=== PATIENT | female | born 1995 | race Caucasian/White ===

== ENCOUNTER → 2021-08-02 10:10 | Outpatient (CLI) | payer OTHER, SELFPAY ==
[2021-08-02 10:29] LABS: Absolute Lymphocyte Count 2.19 X10^3/uL (0.83-4.51); Absolute Neutrophil Count 5.5 X10^3/uL (2.0-7.7); Basophil# 0.05 X10^3/uL; Basophil% 0.6 % (0-1); Eosinophil# 0.61 X10^3/uL; Eosinophils% 6.8 % (0-5); Hematocrit 40.7 % (37-47); Hemoglobin 13.9 g/dL (12.0-15.0); Lymphocyte # 2.19 X10^3/ul (0.83-4.51); Lymphocyte % 24.3 % (19-41); Mean Corp Hgb Conc 34.2 g/dL (32-36); Mean Corpuscular Hgb 29.3 pg (27.0-32.0); Mean Corpuscular Volume 85.9 fL (81-99); Mean Platelet Vol. 9.1 fl (6.2-12.0); Monocyte# 0.61 X10^3/uL; Monocyte% 6.8 % (0-10); NRBC Flagged by Analyzer 0 % (0-5); Neutrophil # 5.53 X10^3/uL (2.7-7.7); Neutrophil % 61.3 % (47-70); Platelet Count 361 K/mm3 (150-450); RBC Distribution Width CV 12.2 % (11.6-14.6); RBC Distribution Width SD 38.1 fl (35.1-43.9); Red Blood Count 4.74 M/mm3 (4.2-5.4)
[2021-08-02 10:48] LABS: Amphetamine Urine VISTA NEGATIVE (<1000 ng/mL); Barbiturate Urine VISTA NEGATIVE (< 200 ng/mL); Benzodiazepine Urine VISTA NEGATIVE (< 200 ng/mL); Cocaine Urine VISTA NEGATIVE (< 300 ng/mL); Ecstacy Urine VISTA NEGATIVE (< 500 ng/mL); Methadone Urine VISTA NEGATIVE (< 300 ng/mL); PCP Urine VISTA NEGATIVE (< 25 ng/mL); THC Urine VISTA NEGATIVE (< 50 ng/mL); Vista UDS pH Range 7
[2021-08-02 11:42] LABS: HIV - WCH Non-Reactive (Nonreactive); Hepatitis B Surface Antigen Non-Reactive (Nonreactive); Hepatitis C Antibody Non-Reactive (Nonreactive); Rubella IgG Equiv (Nonreactive); Syphilis Antibodies Non-reactive
[2021-08-05 05:07] LABS: Chlamydia By Nucleic Acid AMP Negative (Negative)
[2021-08-05 14:28] LABS: Gonococcus By Nucleic Acid AMP Negative (Negative)
[2021-08-05 16:49] LABS: HPV Reflexed? NOT INDICATED
== END ==
PROVIDERS: Referring Provider Obstetrics & Gynecology; Visit Provider Obstetrics & Gynecology
DX: Z34.90 Encounter for supervision of normal pregnancy, unspecified, unspecified trimester (principal); Z12.4 Encounter for screening for malignant neoplasm of cervix
CPT/HCPCS: 36415; 80307; 85025; 86703; 86762; 86780; 86803; 86850; 86900; 86901; 87086; 87340; 87491; 87591; 88175; G0145

== ENCOUNTER → 2021-08-18 16:13 | Outpatient (CLI) | payer OTHER, SELFPAY ==
[2021-08-18 17:29] LABS: NATERA MAILED SPECIMEN
== END ==
PROVIDERS: Referring Provider Obstetrics & Gynecology; Visit Provider Obstetrics & Gynecology
DX: Z00.00 Encounter for general adult medical examination without abnormal findings (principal)

== ENCOUNTER → 2021-10-25 18:27 | Outpatient (CLI) | payer OTHER, SELFPAY ==
--- NOTE | 2021-10-25 18:29 | US_ITS ---
STUDY: SECOND AND THIRD TRIMESTER OBSTETRICAL ULTRASOUND REASON FOR EXAM: Female, 26 years old ANATOMY LMP: 06/03/2021 TECHNIQUE: Transabdominal and Transvaginal TECHNICAL QUALITY: Adequate. PRIOR ULTRASOUND: None. FINDINGS: There is a single intrauterine fetus. The fetus is in a variable presentation. There is demonstrated cardiac activity with a heart rate of 147 bpm. There is a normal amniotic fluid volume. The largest amniotic fluid pocket measures 4 x 3.5 cm. The placenta is posterior in location and is not low lying. There are Grade 0 placental changes. The cervix measures 3.1 cm in length on transvaginal ultrasound. The bilateral adnexal regions are visualized. BIOMETRY: BPD: 4.8 cm 20 weeks, 2 days HC: 18.1 cm: 20 weeks, 3 days AC: 14.6 cm: 19 weeks, 6 days FL: 3.1 cm: 19 weeks, 5 days CI: 76.1 FL/BPD: 65.9 FL/HC: 17.4 FL/AC: 21.6 HC/AC: 1.24 age by current US: 19 weeks, 6 days. RENETTA by current US: 03/15/2022. Estimated weight: 320 grams, +/- 48 grams, 15.3 %. Age by LMP: 20 weeks, 4 days. RENETTA by LMP: 03/10/2022. ANATOMY: Gender: Male Cranium: Normal lateral ventricles. Normal choroid plexus. Normal cerebellum. Normal cisterna magna. Normal face, nose and lips. Chest: Normal 4-chamber heart. Abdomen/Pelvis: Normal diaphragm. Normal stomach. Normal abdominal wall. Normal cord insertion. Normal 3 vessel cord. Normal kidneys. Normal bladder. Spine: Normal cervical spine. Normal thoracic spine. Normal lumbar spine. Normal sacrum. Extremities: Normal bilateral upper extremities. Normal bilateral lower extremities. IMPRESSION: Single live intrauterine in variable presentation of 19 weeks 6 day gestation with an RENETTA of 03/15/2022. anatomic review on submitted images. Posterior grade 0 placenta, no abruption, no previa. Closed internal cervical os. Cervix length 3.1 cm on transvaginal ultrasound. Electronically Signed: Jennifer Riley MD at 5:16 EST , Service support , STUDY STUDY: SECOND AND THIRD TRIMESTER OBSTETRICAL ULTRASOUND REASON FOR EXAM: Female, 26 years old ANATOMY LMP: 06/03/2021 TECHNIQUE: Transabdominal and Transvaginal TECHNICAL QUALITY: Adequate. PRIOR ULTRASOUND: None. FINDINGS: There is a single intrauterine fetus. The fetus is in a variable presentation. There is demonstrated cardiac activity with a heart rate of 147 bpm. There is a normal amniotic fluid volume. The largest amniotic fluid pocket measures 4 x 3.5 cm. The placenta is posterior in location and is not low lying. There are Grade 0 placental changes. The cervix measures 3.1 cm in length on transvaginal ultrasound. The bilateral adnexal regions are visualized. BIOMETRY: BPD: 4.8 cm 20 weeks, 2 days HC: 18.1 cm: 20 weeks, 3 days AC: 14.6 cm: 19 weeks, 6 days FL: 3.1 cm: 19 weeks, 5 days CI: 76.1 FL/BPD: 65.9 FL/HC: 17.4 FL/AC: 21.6 HC/AC: 1.24 age by current US: 19 weeks, 6 days. RENETTA by current US: 03/15/2022. Estimated weight: 320 grams, +/- 48 grams, 15.3 %. Age by LMP: 20 weeks, 4 days. RENETTA by LMP: 03/10/2022. ANATOMY: Gender: Male Cranium: Normal lateral ventricles. Normal choroid plexus. Normal cerebellum. Normal cisterna magna. Normal face, nose and lips. Chest: Normal 4-chamber heart. Abdomen/Pelvis: Normal diaphragm. Normal stomach. Normal abdominal wall. Normal cord insertion. Normal 3 vessel cord. Normal kidneys. Normal bladder. Spine: Normal cervical spine. Normal thoracic spine. Normal lumbar spine. Normal sacrum. Extremities: Normal bilateral upper extremities. Normal bilateral lower extremities. US/OB Anatomy Scan
== END ==
PROVIDERS: Referring Provider Obstetrics & Gynecology; Visit Provider Obstetrics & Gynecology
DX: Z36.89 Encounter for other specified antenatal screening (principal)
CPT/HCPCS: 76805; 76817

== ENCOUNTER 2021-12-15 15:04 | Outpatient (CLI) | payer OTHER, SELFPAY ==
[2021-12-15 15:33] LABS: Absolute Neutrophil Count 6.3 X10^3/uL (2.0-7.7); Basophil# 0.05 X10^3/uL; Basophil% 0.5 % (0-1); Eosinophil# 0.35 X10^3/uL; Eosinophils% 3.5 % (0-5); Hematocrit 37.2 % (37-47); Hemoglobin 12.5 g/dL (12.0-15.0); Lymphocyte % 26.1 % (19-41); Mean Corp Hgb Conc 33.6 g/dL (32-36); Mean Corpuscular Hgb 29.8 pg (27.0-32.0); Mean Corpuscular Volume 88.8 fL (81-99); Monocyte# 0.59 X10^3/uL; Monocyte% 5.9 % (0-10); NRBC Flagged by Analyzer 0 % (0-5); Neutrophil # 6.33 X10^3/uL (2.7-7.7); Neutrophil % 63.4 % (47-70); Platelet Count 254 K/mm3 (150-450); RBC Distribution Width CV 12.6 % (11.6-14.6); RBC Distribution Width SD 40.6 fl (35.1-43.9); Red Blood Count 4.19 M/mm3 (4.2-5.4)
[2021-12-15 15:58] LABS: Glucose Challenge Gest 1H 50g 118 mg/dL (70-140)
== END 2021-12-15 23:59 | disposition home or self-care (01) ==
LOC: PAVLAB 15:05
PROVIDERS: Referring Provider Obstetrics & Gynecology; Visit Provider Obstetrics & Gynecology
DX: Z34.02 Encounter for supervision of normal first pregnancy, second trimester (principal)
CPT/HCPCS: 36415; 82950; 85025

== ENCOUNTER 2021-12-31 16:24 | Outpatient (CLI) | payer OTHER, SELFPAY ==
[2021-12-31 16:59] LABS: Absolute Lymphocyte Count 3.47 X10^3/uL (0.83-4.51); Basophil# 0.05 X10^3/uL; Basophil% 0.4 % (0-1); Eosinophil# 0.27 X10^3/uL; Eosinophils% 2.4 % (0-5); Hematocrit 41.9 % (37-47); Lymphocyte # 3.47 X10^3/ul (0.83-4.51); Lymphocyte % 30.4 % (19-41); Mean Corp Hgb Conc 33.4 g/dL (32-36); Mean Corpuscular Hgb 29.4 pg (27.0-32.0); Mean Platelet Vol. 10.4 fl (6.2-12.0); Monocyte# 0.66 X10^3/uL; Monocyte% 5.8 % (0-10); NRBC Flagged by Analyzer 0 % (0-5); Neutrophil # 6.95 X10^3/uL (2.7-7.7); Neutrophil % 60.7 % (47-70); Platelet Count 283 K/mm3 (150-450); RBC Distribution Width CV 12.9 % (11.6-14.6); RBC Distribution Width SD 41.3 fl (35.1-43.9); Red Blood Count 4.76 M/mm3 (4.2-5.4); White Blood Count 11.4 K/mm3 (4.4-11.0)
[2021-12-31 17:34] LABS: Protein, Urine (Random) 61.3 mg/dL (<11.9); Protein:Creat Ratio 4379 mg/g CRE (0-200)
[2021-12-31 17:46] LABS: ALB/GLOB Ratio 0.6 RATIO (0.9-2.4); AST(SGOT) 31 U/L (15-37); Alanine Aminotransfer ALT/SGPT 22 U/L (13-56); Albumin, Serum 2.7 g/dL (3.2-5.0); Alkaline Phosphatase 340 U/L (45-117); Anion Gap 6 (5-15); BUN 13 mg/dL (7-18); BUN/Creat Ratio 19.1 RATIO (10-20); Calcium,Total 8.4 mg/dL (8.5-10.1); Chloride 105 mmol/L (98-107); Creatinine, Serum 0.68 mg/dL (0.55-1.02); EST Glomerular Filtration Rate 110 mL/min (>60); Est Glom Filt Rate - Afr Amer 133 mL/min (>60); Globulin 4.5 g/dL (2.2-4.2); Glucose 79 mg/dL (74-106); Potassium 4.6 mmol/L (3.5-5.1); Protein, Total 7.2 g/dL (6.4-8.2); Sodium Level 137 mmol/L (136-145)
== END 2021-12-31 23:59 | disposition home or self-care (01) ==
LOC: LAB 16:26
PROVIDERS: Referring Provider Obstetrics & Gynecology; Visit Provider Obstetrics & Gynecology
DX: O16.9 Unspecified maternal hypertension, unspecified trimester (principal); Z3A.00 Weeks of gestation of pregnancy not specified
CPT/HCPCS: 36415; 80053; 82570; 84156; 85025

== ENCOUNTER 2022-01-02 15:49 | Inpatient (IN) | payer OTHER, SELFPAY ==
[2022-01-02] VITALS (42 sets, daily range): BP systolic 96–169; BP diastolic 1–105; PULSE 49–169; RESP 14–18; TEMP 35.9–36.7; O2SAT 81–100; BMI 24.4
--- NOTE | 2022-01-02 11:37 | OB.TRI.HP_ITS ---
HPI - General HPI Narrative ESTRELLA GONGORA, is a 26 y/o @ 30 weeks 3 days who presents to L&D for monitoring and repeat [facility] labs. recent labs on Monday evening showed a prot:cr ratio of 4000. She denies headache, blurry vision or epigastric pain. Maternal Data Information RENETTA Calculator Estimated Delivery Date Method Current WG Current Estimate 03/10/22 LMP (Certain) 30w 3d [facility] Medical History Lab test positive for detection of COVID-19 virus Rubella immune status not known Home Medications albuterol sulfate 0.63 mg/3 mL solution for nebulization 0.63 mg INHALATION Q6H 07/27/21 [History Last Taken Unknown] multivitamin no.47-iron fum 27 mg-folate no.1 1 mg-dha 300 mg capsule 1 cap PO DAILY 07/27/21 [History Last Taken 01/01/22 21:00] budesonide-formoterol HFA 80 mcg-4.5 mcg/actuation aerosol inhaler 2 puff INHALATION BID 10/04/21 [History Last Taken 01/02/22 08:00] aspirin [Baby Aspirin] 81 mg PO DAILY 01/02/22 [History Last Taken 01/02/22 09:00] Allergy/AdvReac Type Severity Reaction Status Date / Time animal dander Allergy Severe Other Verified 01/02/22 11:18 adhesive Allergy Mild Rash Verified 01/02/22 11:18 Seasonal Allergy Severe Other Uncoded 01/02/22 11:18 Surgical History Hx of BJ Social History household members: spouse housing: house current occupational status: employed 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- [email or web address] pets and animals: Yes Smoking Status: Never smoker second hand exposure: No substance use type: does not use seatbelt use: always do you feel safe at home: Yes additional social history: - Stef History 1 Elective abortions Hx Para Spontaneous abortions Hx # Term Pregnancies Ectopic pregnancies Hx # Pregnancies Multiple births # of living children Visit Details Expected Delivery Route/Plan Labor Preferences- CB/BF classes: encouraged labor support person: Stef labor intervention preferences: [] pain management options preferred: epidural cut cord/dad catch: cord : NO PP control planned: discussed discussed possible routes of delivery and associated risks: [] special requests: [] Plans Covid status: vaccinated Flu vaccine: declined Tdap vaccine: given Rhogam: na LARC form signed: yes Problem list reviewed and updated with the most current plan of care details and appropriate orders placed. Relevant counseling for the gestational age provided. Continue routine care and follow up unless otherwise noted in visit notes/problem list details OB Flowsheet Initial Weight: 120 lb Date -?-?-?-?-?-?-?-?-?-?-?-?- EGA Weight BP Urine Prot -?-?-?-?-?-?-?-?-?-?-?-?- Glucose FHR FuHt Pres Dilation -?-?-?-?-?-?-?-?-?-?-?-?- Effaced St Visit Note 08/02/21 -?-?-?-?-?-?-?-?-?-?-?-?- 8w 4d 121 lb (+16 oz) 110/60 -?-?-?-?-?-?-?-?-?-?-?-?- 175 -?-?-?--?-?-?-?-?-?-?-?-?- SM- CRL cons wit h LMP SM- CRL 1.5cm cons with LMP 08/30/21 -?-?-?-?-?-?-?-?-?-?-?-?- 12w 4d 122 lb (+2 lb) 114/62 -?-?-?-?-?-?-?-?-?-?-?-?- 150 -?-?-?-?-?-?-?-?-?-?-?-?- SM- no vb crampi ng 10/04/21 -?-?-?-?-?-?-?-?-?-?-?-?- 17w 4d 112/82 Negative -?-?-?-?-?-?-?-?-?-?-?-?- Negative 150 -?-?-?-?-?-?-?-?-?-?-?-?- SM- no vb lof go od fm no regular ctx 10/27/21 -?-?-?-?-?-?-?-?-?-?-?-?- 20w 6d 135 lb (+15 lb) 100/60 Negative -?-?-?-?-?-?-?-?-?-?-?-?- Negative 148 -?-?-?-?-?-?-?-?-?-?-?-?- -No VB, LOF. Good FM. Nl anatomy US reviewed. 11/18/21 -?-?-?-?-?-?-?-?-?-?-?-?- 24w 0d 142 lb (+22 lb) 118/92 130/85 -?-?-?-?-?-?-?-?-?-?-?-?- 145 -?-?-?-?-?-?-?-?-?-?-?-?- SM- seen for dec reased movement - movement heard today. 12/15/21 -?-?-?-?-?-?-?-?-?-?-?-?- 27w 6d 149 lb 6 oz (+29 lb 6 oz) 128/84 Negative -?-?-?-?-?-?-?-?-?-?-?-?- Negative 146 27 -?-?-?-?-?-?-?-?-?-?-?-?- -No VB, LOF. G ood FM. 28 wk labs, larc, tdap, Ordered growth US 32 and 36 wk 12/31/21 -?-?-?-?-?-?-?-?-?-?-?-?- 30w 1d 152 lb (+32 lb) 135/92 2+ -?-?-?-?-?-?-?-?-?-?-?-?- Negative 146 30 -?-?-?-?-?-?-?-?-?-?-?-?- JV- pt states th at she had a stressful day at work. She denies headches or blurry vision. JV- pt states that she had a stressful day at work. She denies headches or blurry vision. sending for [facility] labs and prot: cr ratio 01/02/22 -?-?-?-?-?-?-?-?-?-?-?-?- 30w 3d 151 lb 3.794 oz (+31 lb 3.794 oz) 137/96 143/79 134/92 137/93 133/92 128/85 137/89 123/84 120/81 129/91 169/105 169/105 -?-?-?-?-?-?-?-?-?-?-?-?- -?-?-?-?-?-?-?-?-?-?-?-?- ROS Constitutional Constitutional: Reports systems reviewed and no addt'l complaints, except as documented Gastrointestinal Gastrointestinal: Denies bloating, constipation, cramping, diarrhea, nausea or vomiting Genitourinary Genitourinary: Reports other Details: Denies vaginal odor, vaginal bleeding, or vaginal discharge ; Denies difficulty urinating or flank pain Physical Exam HEENT normocephalic Resp normal respiratory effort and normal air movement no CVA tenderness Extremity normal to inspection General Extremity: edema bilateral (trace ) NST FHR Rate Baby A Baseline: 150 Variability:: Minimal Accelerations:: None Decelerations:: Late and Variable NST Reactive:: Yes FHR Category:: Category II Uterine Activity:: no contractions Assessment & Plan (1) Pre-eclampsia: COMMENT: pr:cr ratio on 12/31 4379- pt sent to l&D 01/02/22 for celestone and rpt pr:cr was 4100 ultrasound showed 1st% growth (889 g) normal swathi, no previa. BPP 6/10 (2 points off for breathing, 2 off for non reactive nst) FHT overall cat 2 for minimal variability. however there were 3 decels (one late and 2 variables) in triage magnesium sulfate ordered for neuro protection Dr. Marcos accepted transfer to [facility] (2) Lab test positive for detection of COVID-19 virus: COMMENT: 81 mg asa 32 & 36 wk growth US Charges/Coding Multi Select Codes Visit Charges Visit Charges: 41030 Init Hosp L3 Office Visit/Consults: 55016 OV L3 Est Urinary/Genital Urinary/Genital CPT Codes: 83599-40 non-stress test Interp
[2022-01-02 11:56] LABS: Hematocrit 42.2 % (37-47); Hemoglobin 14.7 g/dL (12.0-15.0); Mean Corp Hgb Conc 34.8 g/dL (32-36); Mean Corpuscular Volume 86.1 fL (81-99); Mean Platelet Vol. 10.9 fl (6.2-12.0); Platelet Count 267 K/mm3 (150-450); RBC Distribution Width CV 12.7 % (11.6-14.6); RBC Distribution Width SD 39.3 fl (35.1-43.9); White Blood Count 9.6 K/mm3 (4.4-11.0)
[2022-01-02] MEDS: 0.9% Saline Lock 10 ML Syringe IV ×2 (11:56→16:34)
[2022-01-02] MEDS: Betamethasone/Betamethasone 30 MG/5 ML Vial 12 MG IM (11:56)
[2022-01-02 12:00] LABS: AST(SGOT) 35 U/L (15-37); Alanine Aminotransfer ALT/SGPT 22 U/L (13-56); Creatinine, Serum 0.79 mg/dL (0.55-1.02); EST Glomerular Filtration Rate 93 mL/min (>60); Est Glom Filt Rate - Afr Amer 113 mL/min (>60); Estimated Creatinine Clearance 101.02 ml/min; Uric Acid 7.2 mg/dL (2.6-6.0)
[2022-01-02 12:01] LABS: Protein, Urine (Random) 212.2 mg/dL (<11.9); Protein:Creat Ratio 4128 mg/g CRE (0-200)
--- NOTE | 2022-01-02 12:07 | US_ITS ---
STUDY: SECOND AND THIRD TRIMESTER OBSTETRICAL ULTRASOUND REASON FOR EXAM: Female, 26 years old growth with BPP -- hx of pre eclampsia LMP: 06/03/2021 TECHNIQUE: Transabdominal TECHNICAL QUALITY: Adequate. PRIOR ULTRASOUND: 10/25/2021 FINDINGS: There is a single intrauterine fetus. The fetus is in a cephalic presentation. There is demonstrated cardiac activity with a heart rate of 144 bpm. There is a normal amniotic fluid volume. The largest amniotic fluid pocket measures 4.4 cm. The amniotic fluid index (LENNOX) is 11.4 cm. The placenta is posterior in location and is not low lying. There are Grade 1 placental changes. The cervix measures 4.3 cm in length. The adnexal regions are not visualized. BIOMETRY: BPD: 6.8 cm: 27 weeks, 4 days HC: 9.0 cm: 27 weeks, 5 days AC: 26.0 cm: 28 weeks, 1 days FL: 21.1 cm: 25 weeks, 4 days CI: 75.81% FL/BPD: 69.39% FL/HC: 18.30% FL/AC: 22.59% HC/AC: 1.23 age by current US: 26 weeks, 6 days. RENETTA by current US: 04/04/2022. Estimated weight: 889 grams, +/- 132 grams, 1 %. Age by LMP: 30 weeks, 3 days. RENETTA by LMP: 03/10/2022. IMPRESSION: Living intrauterine of 26 weeks 6 days as described above. age is discordant from age by LMP of 30 weeks 3 days consistent with incorrect dates or intrauterine growth retardation. Electronically Signed: Cody Wills MD at 14:53 EST , STUDY: OBSTETRICAL ULTRASOUND - BIOPHYSICAL PROFILE REASON FOR EXAM: Female, 26 years old growth with BPP -- hx of pre eclampsia LMP: 06/03/2021 PRIOR ULTRASOUND: 10/25/2021 TECHNIQUE: Transabdominal TECHNICAL QUALITY: Adequate. FINDINGS: There is a single intrauterine fetus. The fetus is in a cephalic presentation. There is demonstrated cardiac activity with a heart rate of 144 bpm. There is a normal amniotic fluid volume. The largest amniotic fluid pocket measures 4.4 cm. The amniotic fluid index (LENNOX) is 11.4 cm. The placenta is posterior in location and is not low lying. There are Grade 1 placental changes. Age by LMP: 30 weeks, 3 days. RENETTA by LMP: 03/10/2022. age by current US: 26 weeks, 6 days. RENETTA by current US: 04/04/2022. Gender: BIOPHYSICAL PROFILE: Breathing Movements (FBM): 0 Gross Body Movements (GBM): 2 Tone (FT): 2 Amniotic Fluid Volume (AFV): 2 TOTAL SCORE: 6 / 8 US/OB Limited With Biometrics IMPRESSION: biophysical profile of 04/06. Electronically Signed: Cody Wills MD at 14:54 EST ,
[2022-01-02] MEDS: Magnesium Sulfate 4gm/100mL 4 GM/100 ML IV.SOLN. IV (15:18)
[2022-01-02] MEDS: Magnesium Sulfate 4gm/100mL 2 GM/50 ML IV.SOLN. IV (15:38)
[2022-01-02] MEDS: Lactated Ringers 1,000 ML 999 ML IV (15:40)
[2022-01-02] MEDS: Acetaminophen 500 MG Tablet 1000 MG PO ×2 (16:21→22:56)
[2022-01-02] MEDS: Sodium Citrate/Citric Acid 30 ML UDC PO (16:21)
[2022-01-02] MEDS: Cefazolin 2 GM in 0.9% Normal Saline 100 ML IV (16:44)
--- NOTE | 2022-01-02 17:29 | EX.PCM.OBRPT ---
Maternal Data Information RENETTA Calculator Estimated Delivery Date Method Current WG Current Estimate 03/10/22 LMP (Certain) 30w 3d Details Operative Information Date of Procedure: 01/02/22 Pre-Operative Diagnosis: 30 weeks 3 days with pre-eclampsia with severe features (IUGR), category 3 tracing Post-Operative Diagnosis: 30 weeks 3 days with pre-eclampsia with severe features (IUGR), category 3 tracing Classification: JOÃO Procedure Type: low transverse cashier host/hostess #1: Lexii Prado Type of Anesthesia: Spinal Anesthesiologist: Arleth Rosales Antibiotic Given: Ancef 2 grams IV x1 Estimated Blood Loss: 300cc Time of Delivery: 16:57 Findings Description of Procedure: Spinal anesthesia was placed without difficulty. Sampson catheter was placed. The patient was placed in the dorsal supine position with leftward tilt. Patient was prepped and draped in the normal sterile fashion. Pfannenstiel skin incision was made with the scalpel and carried through to the underlying layer of fascia with the scalpel. Fascia was nicked in the midline and the incision extended laterally. The rectus bellies were dissected off superiorly and inferiorly with out complication both sharply and bluntly. The peritoneum was entered digitally. The incision was stretched and a low transverse uterine incision was made with the scalpel. The infant's head was delivered atraumatically followed by the anterior and posterior shoulders without complication the rest of the delivered. The cord was clamped and cut and the was handed off to awaiting nurse. The placenta was delivered spontaneously immediately following and was noted to be intact and have a three-vessel cord. The uterus was exteriorized cleared of all clots and debris, and the incision was closed in a double layer closure using a #1 vicryl followed by a #1 Monocryl. The ovaries and fallopian tubes were noted to be within normal limits. The uterus was returned to the maternal abdomen and gutters were cleared of all clots and debris. The peritoneum was closed with 3-0 Monocryl in a running fashion. Gloves were changed prior to fascial closure. Fascia was closed with 0 PDS in a running fashion. Subcutaneous tissue was copiously irrigated and the skin was closed with 3-0 Monocryl in a subcuticular fashion. Mepilex dressing was applied without complication. Patient was taken to recovery in stable condition. It was discussed with the patient that based on the clinical information obtained during this encounter, combined with her history, at this time I would recommend either vaginal delivery or for future deliveries if further pregnancies are desired. Presentation: Positive for Vertex Amniotic Membrane Rupture Type: Artificial Amniotic Fluid Description: Clear Placental Delivery Description: Manual Removal Placenta Disposition: Sent to Pathology Specimen(s) Sent to Pathology: placenta Cord Vessel Description: 3 Vessels Cord Entanglement: Around neck x 1, tight Nuchal Cord Compression: With compression Cord Gases: ABG and VBG A Gender: Male (1 minute): 9 (5 minute): 9 Delayed Cord Clamping: No Complications Risks of Surgery Discussed w/Patient: Bleeding, Anesthesia Risks, Infection and Need for Future C-Sections Complications: none Multi Select Codes Urinary/Genital Urinary/Genital CPT Codes: 06669 Delivery [facility]
--- NOTE | 2022-01-02 17:32 | PCM.DC ---
Discharge Instructions Diet Discharge Diet: No restrictions Activity Discharge Activity: May Not Drive (for 2 weeks or while taking narcotic pain medications.), May Shower and May Take a Tub Bath (in 7 days.) May resume sexual activity in: 4-6 weeks Weight Bearing Status: Full weight bearing Lifting Restrictions: 20 pounds Dressing / Incision Call your doctor if your incision/area has: Continuous Slow Oozing, Sudden Increased Bleeding, Increased Pain/ Swelling, Increased Redness and Foul Smelling Discharge Call your doctor if you observe: Fever of 101 or Higher and Using more than 1 pad per hour Suture Line Care: Avoid Pulling/Pushing and Avoid Pinching/Bending Cleanse incision/area with: Soap & Water and Keep Dressing Clean & Dry Follow Up Care Please Follow Up With: Christina Conti DO When: Call [phone] to make an appointment for an incision check in 1-2 weeks. Test Results: Test results from this visit will be discussed in further detail at your follow-up appointment, if applicable. Discharge Plan Admission Admit Date/Time: 01/02/22 15:49 Primary Reason for Your Visit: section Attending Provider: Christina Conti Discharge Orders/Prescriptions Prescriptions: New oxycodone-acetaminophen [Percocet] 5-325 mg tablet 1 tab PO Q4H PRN (Reason: pain) 7 Days Qty: 30 RF: 0 docusate sodium [Colace] 100 mg capsule 100 mg PO DAILY 14 Days Qty: 14 RF: 0 Continued PNV-DHA 27 mg iron-1 mg -300 mg capsule 1 cap PO DAILY RF: 0 albuterol sulfate 0.63 mg/3 mL solution for nebulization 0.63 mg inhalation Q6H RF: 0 budesonide-formoterol [Symbicort] 80-4.5 mcg/actuation HFA aerosol inhaler 2 puff inhalation BID RF: 0 Discontinued aspirin [Baby Aspirin] 81 mg Tablet,Chewable 81 mg PO DAILY RF: 0 Disposition Disposition (needs filled in before D/C Order can be placed): Home, Self Care
[2022-01-02] MEDS: Oxytocin 30 units/NS 500 ml 30 UNITS/500 ML IV.SOLN 167 UNITS IV (17:35)
[2022-01-02] MEDS: Ketorolac 30 MG/ML Syringe IV (18:30)
[2022-01-02] MEDS: Lactated Ringers 1,000 ML 100 ML IV (20:48)
[2022-01-02] MEDS: Magnesium Sulfate 20 GM/500 ML BAG IV (21:08)
[2022-01-02] MEDS: NIFEdipine 30 MG Tablet PO (22:11)
[2022-01-03] VITALS (16 sets, daily range): BP systolic 97–135; BP diastolic 61–93; PULSE 71–105; RESP 16–18; TEMP 36.1–36.9; O2SAT 94–100
[2022-01-03] MEDS: DiphenhydrAMINE 25 MG Capsule PO (00:14)
[2022-01-03] MEDS: Ketorolac 30 MG/ML Syringe IV ×2 (00:57→07:04)
[2022-01-03] MEDS: 0.9% Saline Lock 10 ML Syringe IV ×3 (01:01→11:26)
[2022-01-03] MEDS: Acetaminophen 500 MG Tablet 1000 MG PO ×4 (04:33→22:44)
[2022-01-03 07:23] LABS: Hematocrit 39.1 % (37-47); Hemoglobin 13.5 g/dL (12.0-15.0); Mean Corp Hgb Conc 34.5 g/dL (32-36); Mean Corpuscular Hgb 30.4 pg (27.0-32.0); Mean Corpuscular Volume 88.1 fL (81-99); Mean Platelet Vol. 10.2 fl (6.2-12.0); Platelet Count 258 K/mm3 (150-450); RBC Distribution Width CV 12.7 % (11.6-14.6); RBC Distribution Width SD 40.9 fl (35.1-43.9); Red Blood Count 4.44 M/mm3 (4.2-5.4); White Blood Count 21.7 K/mm3 (4.4-11.0)
[2022-01-03] MEDS: Prenatal Vits Tablet 1 TABLET PO (10:08)
[2022-01-03] MEDS: Senna/Docusate Sodium 1 Tablet PO (10:08)
--- NOTE | 2022-01-03 11:30 | PCM.PN.OB ---
Subjective Subjective Patient doing well without complaints. Tolerating PO. Ambulating and voiding without difficulty. Feeding well. Denies chest pain, shortness of breath, calf pain/swelling, fevers, chills, lightheadedness. he feels a little flush with the magnesium running. Objective Data Objective Data Vital Signs: Vital Signs Temp Pulse Resp BP Pulse Ox 98.5 F 95 16 127/87 H 100 01/03/22 10:00 01/03/22 10:00 01/03/22 10:00 01/03/22 10:00 01/03/22 10:00 Oxygen Delivery Method Room Air Weight: 151 lb 3.794 oz Body Mass Index (BMI) 24.4 Intake & Output: Intake and Output for Last 24 Hours 01/01/22 01/02/22 01/03/22 23:59 23:59 23:59 Intake Total 3898.33 / 4118.33 2705.00 / 2705.00 Output Total 1013 / 1068 3845 / 3845 Balance 2885.33 / 3050.33 -1140.00 / -1140.00 Lab / Micro Data Result Diagrams: 01/03/22 07:14 01/02/22 11:30 Labs: Laboratory Results - last 24 hr 01/02/22 11:30: WBC 9.6, RBC 4.90, Hgb 14.7, Hct 42.2, MCV 86.1, MCH 30.0, MCHC 34.8, RDW Std Deviation 39.3, RDW Coeff of Singh 12.7, Plt Count 267, MPV 10.9 01/02/22 11:30: U Random Total Protein 212.2 H, Urine Creatinine 51.40, Protein/Creatinin Ratio 4128 H 01/02/22 11:30: Creatinine 0.79, Estim Creat Clear Calc 101.02, Est GFR (MDRD) Af Amer 113, Est GFR (MDRD) Non-Af 93, Uric Acid 7.2 H, AST 35, ALT 22 01/02/22 16:25: Blood Type O POSITIVE, Antibody Screen NEGATIVE 01/03/22 07:14: WBC 21.7 H, RBC 4.44, Hgb 13.5, Hct 39.1, MCV 88.1, MCH 30.4, MCHC 34.5, RDW Std Deviation 40.9, RDW Coeff of Singh 12.7, Plt Count 258, MPV 10.2 Micro: Microbiology 01/02/22 16:20 Nasal Secretion SARS-CoV-2 Antigen (Rapid) - Final Radiography Diagnostic Testing: Radiology Impression Obstetrics Ultrasound 01/02/22 12:07 IMPRESSION: biophysical profile of 04/06. Electronically Signed: Cody Wills MD at 14:54 EST , ROS Constitutional Constitutional: Denies chills, fatigue, fever(s), poor appetite or weakness Eyes Eyes: Denies blurry vision, change in vision, seeing flashes or spots in vision ENT HEENT: Denies dizziness, headache(s), loss taste/smell or sore throat Cardiovascular Cardiovascular: Denies chest pain, dizziness, dyspnea, irregular heart rhythm, palpitations or rapid heart rate Respiratory/Chest Respiratory/Chest: Denies chest tightness, cough, dyspnea or breast pain Gastrointestinal Gastrointestinal: Denies abdominal pain, constipation or vomiting Genitourinary Genitourinary: Denies dysuria or flank pain Musculoskeletal Musculoskeletal: Denies difficulty walking, joint pain, limited range of motion or numbness Neurologic Neurologic: Denies abnormal movements, abnormal speech, dizziness, numbness, seizure-like activity or syncope Psychiatric Psychiatric: Denies anxiety, behavioral changes, change in appetite, confusion, depression or suicidal thoughts Physical Exam Const alert, oriented x3 and no apparent distress General Appearance: cooperative and comfortable Resp normal respiratory effort Cardio regular rate GI normal to inspection, nondistended, normoactive bowel sounds GI Narrative: uterus is firm below umbilicus Palpation: soft Bimanual Exam - Adnexa, Other: Negative for cul-de-sac fullness Amniotic Fluid: other Incision is clean, dry, intact. Back/Spine no CVA tenderness and thoraco-lumbar ROM normal Extremity normal to inspection, no clubbing, cyanosis or edema, no calf tenderness and no pedal edema Psych mental status grossly normal, thought process normal, cooperative, affect normal, speech normal, activity/motor behavior normal, denies homicidal ideation and denies suicidal ideation Assessment & Plan (1) Asthma: COMMENT: Singulair; PRN albuterol; est care w/ pulmologist in [place] (2) : QUALIFIERS: Weeks of gestation: 24 weeks Qualified Code(s): Z3A.24 - 24 weeks gestation of COMMENT: genetic- low risk, declines carrier and ntd. NL anatomy (3) Pre-eclampsia: COMMENT: pr:cr ratio on 12/31 4379- pt sent to l&D 01/02/22 for [facility]estone and rpt pr:cr was 4100 ultrasound showed 1st% growth (889 g) normal swathi, no previa. BPP 6/10 (2 points off for breathing, 2 off for non reactive nst) FHT overall cat 2 for minimal variability. however there were 3 decels (one late and 2 variables) in triage magnesium sulfate ordered for neuro protection Dr. Marcos accepted transfer to [facility] (4) delivery delivered: (5) Lab test positive for detection of COVID-19 virus: COMMENT: 81 mg asa 32 & 36 wk growth US PLAN: s/p LTCS PPD # 1 1. routine post care 2. breast feeding- support given 3. rh positive 4. rubella non- immune 5. stop mag today. continue procardia 6. if does well tonight will discharge so she may be with the baby in [place].
[2022-01-03] MEDS: Naproxen 500 MG Tablet PO (15:20)
[2022-01-03] MEDS: NIFEdipine 30 MG Tablet PO (22:44)
[2022-01-03] MEDS: BUDESONIDE/FORMOTEROL 160/4.5 1 PUFF INHALER 2 PUFF INHALATION (22:45)
[2022-01-04 00:03] VITALS: BP 120/76; PULSE 77; RESP 16; TEMP 36.2; O2SAT 96
[2022-01-04] MEDS: Naproxen 500 MG Tablet PO ×2 (00:03→07:45)
[2022-01-04] MEDS: Acetaminophen 500 MG Tablet 1000 MG PO ×2 (03:53→10:53)
[2022-01-04 04:02] VITALS: BP 129/93; PULSE 75; RESP 16; TEMP 36.2; O2SAT 95
[2022-01-04 07:35] VITALS: BP 115/78; PULSE 87; RESP 16; TEMP 36.4; O2SAT 98
[2022-01-04] MEDS: Senna/Docusate Sodium 1 Tablet PO (10:54)
[2022-01-04] MEDS: Prenatal Vits Tablet 1 TABLET PO (10:54)
--- NOTE | 2022-01-04 11:01 | PN.OBGYN_ITS ---
Subjective Subjective Patient doing well without complaints. Tolerating PO. Ambulating and voiding without difficulty. Feeding well. Denies chest pain, shortness of breath, calf pain/swelling, fevers, chills, lightheadedness. She is ready to go home to see her baby ([facility]) Objective Data Objective Data Vital Signs: Vital Signs Temp Pulse Resp BP Pulse Ox 97.5 F L 87 16 115/78 98 01/04/22 07:35 01/04/22 07:35 01/04/22 07:35 01/04/22 07:35 01/04/22 07:35 Oxygen Delivery Method Room Air Weight: 151 lb 3.794 oz Body Mass Index (BMI) 24.4 Intake & Output: Intake and Output for Last 24 Hours 01/02/22 01/03/22 01/04/22 23:59 23:59 23:59 Intake Total 3898.33 / 4118.33 2705.00 / 2705.00 Output Total 1013 / 1068 5645 / 5645 Balance 2885.33 / 3050.33 -2940.00 / -2940.00 Lab / Micro Data Result Diagrams: 01/03/22 07:14 01/02/22 11:30 Micro: Microbiology 01/02/22 16:20 Nasal Secretion SARS-CoV-2 Antigen (Rapid) - Final ROS Constitutional Constitutional: Denies chills, fatigue, fever(s), poor appetite or weakness Eyes Eyes: Denies blurry vision, change in vision, seeing flashes or spots in vision ENT HEENT: Denies dizziness, headache(s), loss taste/smell or sore throat Cardiovascular Cardiovascular: Denies chest pain, dizziness, dyspnea, irregular heart rhythm, palpitations or rapid heart rate Respiratory/Chest Respiratory/Chest: Denies chest tightness, cough, dyspnea or breast pain Gastrointestinal Gastrointestinal: Denies abdominal pain, constipation or vomiting Genitourinary Genitourinary: Denies dysuria or flank pain Musculoskeletal Musculoskeletal: Denies difficulty walking, joint pain, limited range of motion or numbness Neurologic Neurologic: Denies abnormal movements, abnormal speech, dizziness, numbness, seizure-like activity or syncope Psychiatric Psychiatric: Denies anxiety, behavioral changes, change in appetite, confusion, depression or suicidal thoughts Physical Exam Const alert, oriented x3 and no apparent distress General Appearance: cooperative and comfortable Resp normal respiratory effort Cardio regular rate GI normal to inspection, nondistended, normoactive bowel sounds GI Narrative: uterus is firm below umbilicus Palpation: soft Bimanual Exam - Adnexa, Other: Negative for cul-de-sac fullness Back/Spine no CVA tenderness and thoraco-lumbar ROM normal Extremity normal to inspection, no clubbing, cyanosis or edema, no calf tenderness and no pedal edema Psych mental status grossly normal, thought process normal, cooperative, affect normal, speech normal, activity/motor behavior normal, denies homicidal ideation and denies suicidal ideation Assessment & Plan (1) Asthma: COMMENT: Singulair; PRN albuterol; est care w/ pulmologist in [place] (2) Allergies: COMMENT: Donal Dunlap Benadryl, sees specialist in [place]. has been hospitalized due to pneumonia in past (3) delivery delivered: (4) Pre-eclampsia: COMMENT: pr:cr ratio on 12/31 4379- pt sent to l&D 01/02/22 for [facility] and rpt pr:cr was 4100 ultrasound showed 1st% growth (889 g) normal swathi, no previa. BPP 6/10 (2 points off for breathing, 2 off for non reactive nst) FHT overall cat 2 for minimal variability. however there were 3 decels (one late and 2 variables) in triage magnesium sulfate ordered for neuro protection Dr. Marcos accepted transfer to [facility] PLAN: LTCD day #2 - severe pre-e baby IUGR sent to [place] at 30 weeks 3 days delivery - dc to home -continue procardia daily -check bp daily at [facility] -follow up in 2 weeks in office.
== END 2022-01-04 11:45 | disposition home or self-care (01) | DRG 788 ==
LOC: WPOUT 15:49 → WP 15:49
PROVIDERS: Admitting Provider Obstetrics & Gynecology; Visit Provider Obstetrics & Gynecology
DX: O14.14 Severe pre-eclampsia complicating childbirth (principal); O36.5930 Maternal care for other known or suspected poor fetal growth, third trimester, not applicable or unspecified; J45.909 Unspecified asthma, uncomplicated; Z37.0 Single live birth; O99.52 Diseases of the respiratory system complicating childbirth; Z79.82 Long term (current) use of aspirin; O69.2XX0 Labor and delivery complicated by other cord entanglement, with compression, not applicable or unspecified; Z3A.30 30 weeks gestation of pregnancy; Z86.16 Personal history of COVID-19
CPT/HCPCS: 36415; 59025; 59050; 76816; 76819; 82565; 82570; 84156; 84450; 84460; 84550; 85027; 86850; 86900; 86901; 87426; 96372; 99218; J7120; A4216; G0378; J0702

== ENCOUNTER 2022-01-18 12:03 | Outpatient (CLI) | payer OTHER, SELFPAY ==
[2022-01-18 12:23] LABS: Absolute Neutrophil Count 4.7 X10^3/uL (2.0-7.7); Basophil# 0.08 X10^3/uL; Basophil% 0.9 % (0-1); Eosinophil# 0.41 X10^3/uL; Eosinophils% 4.7 % (0-5); Hematocrit 38.4 % (37-47); Hemoglobin 12.7 g/dL (12.0-15.0); Lymphocyte % 34.5 % (19-41); Mean Corp Hgb Conc 33.1 g/dL (32-36); Mean Corpuscular Hgb 29.3 pg (27.0-32.0); Mean Corpuscular Volume 88.5 fL (81-99); Mean Platelet Vol. 8.7 fl (6.2-12.0); Monocyte# 0.44 X10^3/uL; Monocyte% 5.1 % (0-10); NRBC Flagged by Analyzer 0 % (0-5); Neutrophil # 4.74 X10^3/uL (2.7-7.7); Neutrophil % 54.6 % (47-70); Platelet Count 491 K/mm3 (150-450); RBC Distribution Width CV 12.4 % (11.6-14.6); RBC Distribution Width SD 40.6 fl (35.1-43.9); Red Blood Count 4.34 M/mm3 (4.2-5.4); White Blood Count 8.7 K/mm3 (4.4-11.0)
[2022-01-18 12:56] LABS: ALB/GLOB Ratio 0.9 RATIO (0.9-2.4); AST(SGOT) 24 U/L (15-37); Alanine Aminotransfer ALT/SGPT 51 U/L (13-56); Albumin, Serum 3.6 g/dL (3.2-5.0); Alkaline Phosphatase 116 U/L (45-117); Anion Gap 3 (5-15); BUN 13 mg/dL (7-18); BUN/Creat Ratio 16.1 RATIO (10-20); Calcium,Total 9.1 mg/dL (8.5-10.1); Chloride 108 mmol/L (98-107); Creatinine, Serum 0.81 mg/dL (0.55-1.02); EST Glomerular Filtration Rate 90 mL/min (>60); Est Glom Filt Rate - Afr Amer 109 mL/min (>60); Globulin 3.8 g/dL (2.2-4.2); Glucose 104 mg/dL (74-106); Potassium 4.1 mmol/L (3.5-5.1); Protein, Total 7.4 g/dL (6.4-8.2); Sodium Level 140 mmol/L (136-145)
== END 2022-01-18 23:59 | disposition home or self-care (01) ==
PROVIDERS: Referring Provider Nurse Practitioner Women's Health; Visit Provider Nurse Practitioner Women's Health
DX: Z87.59 Personal history of other complications of pregnancy, childbirth and the puerperium (principal)
CPT/HCPCS: 36415; 80053; 85025

== ENCOUNTER → 2024-07-30 | Outpatient (CLI) | payer OTHER, MEDICAID, SELFPAY ==
[2024-08-06 13:22] LABS: HPV Reflexed? NOT INDICATED
== END | disposition home or self-care (01) ==
LOC: LABSPEC 16:27
PROVIDERS: Referring Provider Nurse Practitioner Women's Health; Visit Provider Nurse Practitioner Women's Health
DX: Z12.4 Encounter for screening for malignant neoplasm of cervix (principal)
CPT/HCPCS: 88175; G0145

== ENCOUNTER → 2025-08-02 | Outpatient (CLI) | payer OTHER, SELFPAY ==
--- OUTSIDE RECORDS SUMMARY | 2025-08-02 08:23 | XMS RPT_ITS | CCD ---
Author Organization [facility] Inform ion Partnership [facility] Care Team Providers Care Sheet Cutter Name Role Phone Unavailable Primary Care Provider Sheyla IVERSON MD, STEFANI Primary Care Unavailable SILVESTRE ALVARADO, VERITO Woodard Attending Sheyla Iverson MD, Stefani Dumont Primary Care Provider NANCY ALVARADO, SEAN Attending Gregoria IVERSON MD, STEFANI Primary Care William IVERSON MD, STEFANI Primary Care Unavailable SEAN GILL Attending Gregoria IVERSON, STEFANI DUMONT Primary Care UnavailBRIDGET Waller Attending Unavailable DELANEY, STEFANI DUMONT Primary Care UnavailJAMES Perez Attending Unavailable DELANEY, STEFANI DUMONT Referring Unavailabl e DELANEY, STEFANI DUMONT Primary Care Unavailabl e Christina Conti Attending Unavailabl e Care Physician, No Primary Referring Unava ilable Care Physician, No Primary Primary Care Unava ilable Allergies Allergy Classification Reported Allergen(s) Allergy Type Date of Onset Reaction(s) Facility (2 sources) Adhesive agent; Translations: [ADHESIVE] Drug Allergy 1 Rash [facility] (2 sources) Seasonal allergy; Translations: [SEASONAL ALLERGIES] Allergy to substance 1 Other: See Comments [facility] (3 sources) Animal Dander; Translations: [ANIMAL DANDER] Drug Allergy 1 Other: See Comments [facility] (1 source) Adhesive agent Drug allergy (disorder) 4 [facility] (1 source) Seasonal Allergies: Uncoded; Translations: [Seasonal Allergies: Uncoded] Propensity to adverse reactions (disorder) 4 [facility] Medications Current Medications Medication Drug Class(es) Dates Sig (Normalized) Sig (Original) [id number] 200 actuat albuterol 0.09 mg/actuat metered dose inhaler (9 sources) beta2-Adrenergic Agonist Start: 09-14-2024 take 2 puff(s) by inhalation every six hours as needed albuterol HFA (PROVENTIL HFA) 90 mcg/actuation inhaler Indications: Moderate persistent asthma with (acute) exacerbation Inhale 2 Puffs as instructed every 6 hours as needed. 1 Each 09/14/2024 Active Start: 06-02-2021 albuterol (PRO VENTIL) 2.5 mg /3 mL (0.083 %) nebulizer solution 06/02/2021 Active albuterol HFA (P ROVENTIL HFA, VENTOLIN HFA) 90 mcg/actuation inhaler q 6 HR. Active Comment on above: q 6 HR. amoxicillin 875 mg / clavulanate 125 mg oral tablet (1 source) Penicillin-class Antibacterial Start: 2023 End: 2023 take 1 tablet by mouth every twelve hours amoxicillin-clavulan ate potassium (AUGMENTIN) 875-125 mg per tablet Indications: Sinobronchitis Take 1 tablet by mouth every 12 hours for 7 days. 14 tablet 08/16/2024 08/23/2024 Active azithromycin 250 mg oral tablet (1 source) Macrolide Antimicrobial Start: 2023 azithromycin (ZITHROMAX) 250 mg tablet Indications: Bacterial Infection Take take 2 pills on day 1, and then take 1 pill days 2 through 5 6 tablet 09/14/2024 Active brompheniramine maleate 0.4 mg/ml / dextromethorphan hydrobromide 2 mg/ml / pseudoephedrine hydrochloride 6 mg/ml oral solution (1 source) alpha-Adrenergic Agonist, Uncompetitive H-ebtfsa-I-aspartate Receptor Antagonist, Sigma-1 Agonist Start: 2023 End: 2023 take 10 mL by mouth every four hours as needed for cough Brompheniramine-Pseu doeph-DM (BROMFED DM) 2-30-10 mg/5 mL syrup Indications: Sinobronchitis Take 10 mL by mouth every 4 hours as needed (COUGH/CONGESTION) for up to 5 days. 300 mL 08/16/2024 08/21/2024 Active 60 actuat budesonide 0.16 mg/actuat / formoterol fumarate 0.0045 mg/actuat metered dose inhaler (4 sources) Corticosteroid, beta2-Adrenergic Agonist Start: 2021 take 2 puff(s) by inhalation twice daily SYMBICORT 160-4.5 mcg/actuation inhaler Inhale 2 Puffs as instructed two times a day. 06/10/2022 Active Start: 06-10-2022 SYMBICORT 160- 4.5 mcg/actuation inhaler 06/10/2022 Active cetirizine hydrochloride 10 mg oral tablet (2 sources) Histamine-1 Receptor Antagonist Start: 07-27-2021 cetirizine (ZYRTEC) 10 mg tablet Take by mouth once daily. 07/27/2021 Active montelukast 10 mg oral tablet (4 sources) Leukotriene Receptor Antagonist Start: 07-22-2021 montelukast (SINGULAIR) 10 mg tablet every evening. 07/22/2021 Active predniSONE 20 mg oral tablet (3 sources) Start: 09-14-2024 take 1 tablet by mouth three times daily, then take 1 tablet by mouth twice daily, then take 1 tablet by mouth once daily, then take 0.5 tablet by mouth once daily predniSONE (DELTASONE) 20 mg tablet 1 tab po tid x 3 days,1 tab po bid x 2 days, 1 tab po every day x 2 days, 1/2 tab po every day x 1 day 16 tablet 09/14/2024 Active Start: 08-16-2024 End: 09-14-2024 take 1 tablet by mouth once daily predniSONE (DELTASONE) 10 mg tablet Indications: Sinobronchitis Take 1 tablet by mouth once daily. TAKE 40 MG (4tabs) FOR TWO DAYS, THEN 20 MG (2tabs) FOR TWO DAYS, THEN 10 MG (1tab) FOR TWO DAYS 14 tablet 08/16/2024 09/14/2024 Discontinued (Course of therapy completed) triamcinolone acetonide 0.61414 mg/mg topical ointment (1 source) Corticosteroid Start: 09-14-2024 End: 10-14-2024 triamcinolone (KENALOG) 0.025 % ointment Indications: Eczema, unspecified type Apply to affected area two times a day. 15 g 09/14/2024 10/14/2024 Active Completed/Discontinued Medications Medication Drug Class(es) Dates Sig (Normalized) Sig (Original) ipratropium bromide 0.2 mg/ml inhalation solution (2 sources) Anticholinergic Start: 09-14-2024 End: 09-14-2024 ipratropium 0.02 % 0.5 mg (ATROVENT) Start: 09-14-2024 End: 09-14-2024 take 0.5 mg by inhalation once 0.5 mg, INHALATION, ONC E, 1 dose, On 09/14/24 at 2000 methylPREDNISolone 125 mg injection (2 sources) Corticosteroid Start: 09-14-2024 End: 09-14-2024 methylPREDNISolone sod succinate(PF) 125 mg injection (SOLU-Medrol) Start: 09-14-2024 End: 09-14-2024 inject 1 dose by intramuscular injection once 125 mg, INTRAMUSCULAR, ONCE, 1 dose, On 09/14/24 at 1999 Problems Active Problems Problem Classification Problem Date Documented Da te Episodic/Chronic Asthma (2 sources) Exacerbation of moderate persistent asthma; Translations: [Moderate persistent asthma with (acute) exacerbation] Onset: 09-14-2024 09-14-2024 Chronic Genitourinary symptoms and ill-defined conditions (2 sources) Dysuria; Translations: [Dysuria] Onset: 07-06-2024 Episodic Malaise and fatigue (1 source) Other fatigue; Translations: [Tiredness] Onset: 02-08-2025 Episodic Other ear and sense organ disorders (1 source) Sensation of blocked ear; Translations: [Other specified disorders of ear, bilateral] Episodic Other upper respiratory infections (2 sources) Chronic sinusitis; Translations: [Chronic sinusitis, unspecified] Onset: 08-16-2024 08-16-2024 Chronic Past or Other Problems Problem Classification Problem Date Documented Da te Episodic/Chronic Allergic reactions (2 sources) Eczema; Translations: [Dermatitis, unspecified] Onset: 09-14-2024 09-14-2024 Episodic Chronic obstructive pulmonary disease and bronchiectasis (1 source) Bronchitis, not specified as acute or chronic; Translations: [Sinobronchitis] Onset: 08-16-2024 Episodic Other upper respiratory infections (3 sources) Acute upper respiratory infection; Translations: [Acute upper respiratory infection, unspecified] Onset: 09-14-2024 Episodic Results Test Name Value Interpretation Reference Range Facility Comprehensive metabolic 2000 panelon 02-08-2025 Albumin [Mass/Vol] 4.3 g/dL Normal 3.2-5.0 [facility] Comment on above: Order Comment: Specimen Type: BLOOD SPEC IMEN Ordering Facility: Stefani Iverson MD Address: [address] [place] [address] Performed By: #### 2 4323-8, 6-3 #### [facility] CLIA [id number] [address] [place] [address] [place] #### 04559-1 #### [facility] CLIA [id number] [address] [place] [address] LAB CLIA [id number] [address] [place] [id number] [place] ALP [Catalytic activity/Vol] 110 U/L Normal 45-117 [facility] Comment on above: Order Comment: Specimen Type: BLOOD SPEC IMEN Ordering Facility: Stefani Iverson MD Address: [address] [place] [address] Performed By: #### 2 4323-8, 6-3 #### [facility] CLIA [id number] [address] [place] [address] STATES [place] #### 30258-8 #### [facility] CLIA [id number] [address] [place], [place] [address] [place] [facility] CLIA [id number] [address] [place] [id number] [place] ALT [Catalytic activity/Vol] 38 U/L Normal 13-61 [facility] Comment on above: Order Comment: Specimen Type: BLOOD SPEC IMEN Ordering Facility: Stefani Iverson MD Address: [address] [place] [address] Result Comment: Resu lts may be falsely depressed after the administration of Sulfasalazine and/or Sulfapyridine. Performed By: #### 2 4323-8, 6-3 #### [facility] CLIA [id number] [address] [place] [address] [place] #### 95483-7 #### [facility] CLIA [id number] [address] [place], [place] [address] [place] [facility] CLIA [id number] [address] [place], [place] [address] [place] Anion gap [Moles/Vol] 7 mmol/L Normal 5-16 [facility] Comment on above: Order Comment: Specimen Type: BLOOD SPEC IMEN Ordering Facility: Stefani Iverson MD Address: [address] [place] [address] Performed By: #### 2 4323-8, 3015-3 #### [facility] CLIA [id number] [address] [place] [address] [place] #### 51656-1 #### [facility] CLIA [id number] [address] [place] [address] STATES [facility] CLIA [id number] [address] [place] [address] [place] AST [Catalytic activity/Vol] 23 U/L Normal 8-34 [facility] Comment on above: Order Comment: Specimen Type: BLOOD SPEC IMEN Ordering Facility: Stefani Iverson MD Address: [address] [place] [address] Result Comment: Resu lts may be falsely depressed after the administration of Sulfasalazine and/or Sulfapyridine. Performed By: #### 2 4323-8, 6-3 #### [facility] CLIA [id number] [address] [place] [address] [place] #### 97009-5 #### [facility] CLIA [id number] [address] [place] [address] [place] [facility] CLIA [id number] [address] [place] [address] [place] Bilirubin [Mass/Vol] 0.6 mg/dL Normal 0.2-1.0 [facility] Comment on above: Order Comment: Specimen Type: BLOOD SPEC IMEN Ordering Facility: Stefani Iverson MD Address: [address] [place] [address] Performed By: #### 2 4323-8, 3015-3 #### [facility] CLIA [id number] [address] [place], [place] [address] [place] #### 21141-5 #### [facility] CLIA [id number] [address] [place], [place] [address] [place] [facility] CLIA [id number] [address] [place], [place] [address] [place] Calcium [Mass/Vol] 9.9 mg/dL Normal 8.5-10.5 [facility] Comment on above: Order Comment: Specimen Type: BLOOD SPEC IMEN Ordering Facility: Stefani Iverson MD Address: [address] [place] [address] Performed By: #### 2 4323-8, 3015-3 #### [facility] CLIA [id number] [address] [place] [address] [place] #### 31382-8 #### [facility] CLIA [id number] [address] [place], [place] [address] [place] [facility] CLIA [id number] [address] [place], [place] [address] [place] Chloride [Moles/Vol] 101 mmol/L Normal 98-107 [facility] Comment on above: Order Comment: Specimen Type: BLOOD SPEC IMEN Ordering Facility: Stefani Iverson MD Address: [address] [place] [address] Performed By: #### 2 4323-8, 3015-3 #### [facility] CLIA [id number] [address] [place] [address] [place] #### 99559-1 #### [facility] CLIA [id number] [address] [place], [place] [address] [place] [facility] CLIA [id number] [address] [place] [address] [place] CO2 [Moles/Vol] 27 mmol/L Normal 21-32 [facility] Comment on above: Order Comment: Specimen Type: BLOOD SPEC IMEN Ordering Facility: Stefani Iverson MD Address: [address] [place] [address] Performed By: #### 2 4323-8, 3016-3 #### [facility] CLIA [id number] [address] [place] [address] #### 93418-5 #### [facility] CLIA [id number] [address] [place] [address] [facility] LAB CLIA [id number] [address] [place] [address] Creatinine [Mass/Vol] 0.61 mg/dL Normal 0.51-0.95 [facility] Comment on above: Order Comment: Specimen Type: BLOOD SPEC IMEN Ordering Facility: Stefani Iverson MD Address: [address] [place] [address] Result Comment: Kari ents receiving either N-Acetylcysteine (NAC) or Metamizole prior to venipuncture, may have falsely depressed results. Performed By: #### 2 4323-8, 3016-3 #### [facility] CLIA [id number] [address] [place] [address] STATES [facility] #### 00620-6 #### [facility] CLIA [id number] [address] [place] [address] PLA[facility] LAB CLIA [id number] [address] [place] [address] [place] Creatinine and Glomerular filtration rate.predicted panel (S/P/Bld) 124 mL/min/1.73m??? Normal >=60 [facility] Comment on above: Order Comment: Specimen Type: BLOOD SPEC IMEN Ordering Facility: Stefani Iverson MD Address: [address] [place] [address] Result Comment: Toña mated Glomerular Filtration Rate (eGFR) is calculated using the 2020 CKD-EPI creatinine equation. This equation utilizes serum creatinine, sex, and age as parameters. The creatinine assay has traceable calibration to isotope dilution-mass spectrometry. Refer to KDIGO guidelines for clinical interpretation. In patients with unstable renal function, e.g. those with acute kidney injury, the eGFR may not accurately reflect actual GFR. Performed By: #### 2 4323-8, 6-3 #### [facility] CLIA [id number] [address] [place] [address] #### 60161-8 #### [facility] CLIA [id number] [address] [place], [place] [address] [facility] CLIA [id number] [address] Glucose [Mass/Vol] 84 mg/dL Normal 70-100 [facility] Comment on above: Order Comment: Specimen Type: BLOOD SPEC IMEN Ordering Facility: Stefani Iverson MD Address: [address] [place] [address] Result Comment: The [place] Diabetes Association (ADA) provides guidance for cutoff values for fasting glucose and random glucose. The ADA defines fasting as no caloric intake for at least 8 hours. Fasting plasma glucose results between 100 to 125 mg/dL indicate increased risk for diabetes (prediabetes). Fasting plasma glucose results greater than or equal to 126 mg/dL meet the criteria for diagnosis of diabetes. In the absence of unequivocal hyperglycemia, results should be confirmed by repeat testing. In a patient with classic symptoms of hyperglycemia or hyperglycemic crisis, random plasma glucose results greater than or equal to 200 mg/dL meet the criteria for diagnosis of diabetes. Reference: Standards of Medical Care in Diabetes 2016, [place] Diabetes Association. Diabetes Care. 2016.39(Suppl 1). Results may be falsely elevated after the administration of Sulfapyridine. Results may be falsely depressed after the administration of Sulfasalazine. Performed By: #### 2 4323-8, 3015-3 #### [facility] CLIA [id number] [address] [place] [address] #### 36977-4 #### [facility] CLIA [id number] [address] [place], [place] [address] [place] [facility] CLIA [id number] [address] [place], [place] [address] [place] Potassium [Moles/Vol] 4.2 mmol/L Normal 3.5-5.1 [facility] Comment on above: Order Comment: Specimen Type: BLOOD SPEC IMEN Ordering Facility: Stefani Iverson MD Address: [address] [place] [address] Performed By: #### 2 4323-8, 6-3 #### [facility] CLIA [id number] [address] [place] [address] [place] #### 66302-5 #### [facility] CLIA [id number] [address] [place], [place] [address] [place] [facility] CLIA [id number] [address] [place], [place] [address] [place] Protein [Mass/Vol] 7.5 g/dL Normal 6.0-8.5 [facility] Comment on above: Order Comment: Specimen Type: BLOOD SPEC IMEN Ordering Facility: Stefani Iverson MD Address: [address] [place] [address] Performed By: #### 2 4323-8, 3015-3 #### [facility] CLIA [id number] [address] [place] [address] [place] #### 51027-3 #### [facility] CLIA [id number] [address] [place], [place] [address] [place] [facility] CLIA [id number] [address] [place] [address] [place] Sodium [Moles/Vol] 135 mmol/L Low 136-145 [facility] Comment on above: Order Comment: Specimen Type: BLOOD SPEC IMEN Ordering Facility: Stefani Iverson MD Address: [address] [place] [id number] Performed By: #### 2 4323-8, 6-3 #### [facility] CLIA [id number] [address] [place] [address] [place] #### 04240-5 #### [facility] CLIA [id number] [address] [place] [address] [place] OF [facility] CLIA [id number] [address] [place] [address] [place] Urea nitrogen [Mass/Vol] 12 mg/dL Normal 7-26 [facility] Comment on above: Order Comment: Specimen Type: BLOOD SPEC IMEN Ordering Facility: Stefani Iverson MD Address: [address] [place] [address] Performed By: #### 2 4323-8, 3016-3 #### [facility] CLIA [id number] [address] [place] [address] [place] #### 05139-1 #### [facility] CLIA [id number] [address] [place] [address] [place] [facility] CLIA [id number] [address] [place], [place] [address] [place] Lipid 1996 panelon 5 Cholesterol [Mass/Vol] 218 mg/dL High 0-199 [facility] Comment on above: Order Comment: Specimen Type: BLOOD SPEC IMEN Ordering Facility: Stefani Iverson MD Address: [address] [place] [id number] Result Comment: <200 mg/dL, Desirable 200-239 mg/dL, Borderline high >239 mg/dL, High Performed By: #### 2 4323-8, 3016-3 #### [facility] CLIA [id number] [address] [place], [place] [address] [place] #### 33272-9 #### [facility] CLIA [id number] [address] [place], [place] [address] [facility] CLIA [id number] [address] [place], [place] [address] [place] Cholesterol in HDL [Mass/Vol] 61 mg/dL Normal >40 [facility] Comment on above: Order Comment: Specimen Type: BLOOD SPEC IMEN Ordering Facility: Stefani Iverson MD Address: [address] [place] [address] Result Comment: 40-5 9 mg/dL, Acceptable >59 mg/dL, High: Negative risk factor for coronary heart disease <40 mg/dL, Low: Positive risk factor for coronary heart disease Performed By: #### 2 4323-8, 3016-3 #### [facility] CLIA [id number] [address] [place] [address] #### 07852-3 #### [facility] CLIA [id number] [address] [place] [address] LAB CLIA [id number] [address] [place] [address] Cholesterol in LDL [Mass/Vol] 140 mg/dL High 0-129 [facility] Comment on above: Order Comment: Specimen Type: BLOOD SPEC IMEN Ordering Facility: Stefani Iverson MD Address: [address] [place] [address] Result Comment: <100 mg/dL, Optimal 100-129 mg/dL, Near optimal/above optimal 130-159 mg/dL, Borderline high 160-189 mg/dL, High >189 mg/dL, Very high Secondary prevention optimal LDL Cholesterol levels are recommended to be < 70 mg/dL Performed By: #### 2 4323-8, 3016-3 #### [facility] CLIA [id number] [address] [place] [address] #### 29881-5 #### [facility] CLIA [id number] [address] [place] [address] LAB CLIA [id number] [address] [place] [address] Cholesterol in LDL/Cholesterol in HDL [Mass ratio] 2.30 {ratio} Normal <2.54 [facility] Comment on above: Order Comment: Specimen Type: BLOOD SPEC IMEN Ordering Facility: Stefani Iverson MD Address: [address] [place] [address] Result Comment: Refe rence: 1. National Cholesterol Education Program ATP III Guideline At-A-Glance Quick Desk Reference: National Heart, Lung, and Blood [place]. National Institutes of Health. 2001: NIH Publication No. 01-3305. 2. An International Atherosclerosis Society position paper: global recommendations for the management of dyslipidemia: executive summary, Atherosclerosis. 2014: 232(2):410-413. Performed By: #### 2 4323-8, 3016-3 #### [facility] CLIA [id number] [address] [place] [address] #### 84185-3 #### [facility] CLIA [id number] [address] [place], [place] [address] [facility] CLIA [id number] [address] [place] [address] Cholesterol in VLDL [Mass/Vol] 17 mg/dL Normal <30 [facility] Comment on above: Order Comment: Specimen Type: BLOOD SPEC IMEN Ordering Facility: Stefani Iverson MD Address: [address] [place] [address] Performed By: #### 2 4323-8, 6-3 #### [facility] CLIA [id number] [address] [place] [address] #### 63918-1 #### [facility] CLIA [id number] [address] [place] [address] [facility] CLIA [id number] [address] [place] [address] Cholesterol non HDL [Mass/Vol] 157 mg/dL High <130 [facility] Comment on above: Order Comment: Specimen Type: BLOOD SPEC IMEN Ordering Facility: Stefani Iverson MD Address: [address] [place] [address] Result Comment: <130 mg/dL, Optimal 130-159 mg/dL, Near optimal/above optimal 160-189 mg/dL, Borderline high 190-219 mg/dL, High >219 mg/dL, Very high Secondary prevention optimal non HDL Cholesterol levels are recommended to be <100 mg/dL Performed By: #### 2 4323-8, 3015-3 #### [facility] CLIA [id number] [address] [place], [place] [address] [place] #### 64566-6 #### [facility] CLIA [id number] [address] [place] [address] [place] [facility] CLIA [id number] [facility] [place] [id number] [facility] [place] Cholesterol.tota l/Cholesterol in HDL [Mass ratio] 3.57 {ratio} Normal <5.10 [facility] Comment on above: Order Comment: Specimen Type: BLOOD SPEC IMEN Ordering Facility: Stefani Iverson MD Address: [address] [place] [address] Performed By: #### 2 4323-8, 3 #### [facility] CLIA [id number] [address] [place] [address] [place] #### 30001-2 #### [facility] CLIA [id number] [address] [place], [place] [address] [place] OF [facility] CLIA [id number] [address] [place], [place] [address] [place] OF [place] FASTING TIME 12 hrs Normal [facility] Comment on above: Order Comment: Specimen Type: BLOOD SPEC IMEN Ordering Facility: Stefani Iverson MD Address: [address] [place] [address] Performed By: #### 2 4323-8, 3 #### [facility] CLIA [id number] [address] [place], [place] [id number] [place] #### [id number] #### [facility] CLIA [id number] [address] [place], [place] [id number] [place] [facility] CLIA [id number] [facility] [place] [address] [place] Triglyceride [Mass/Vol] 83 mg/dL Normal 30-149 [facility] Comment on above: Order Comment: Specimen Type: BLOOD SPEC IMEN Ordering Facility: Stefani Iverson MD Address: [address] [place] [address] Result Comment: <150 mg/dL, Normal 150-199 mg/dL, Borderline high 200-499 mg/dL, High >499 mg/dL, Very high Patients receiving either N-Acetylcysteine (NAC) or Metamizole prior to venipuncture, may have falsely depressed results. Performed By: #### 2 4323-8, 3015-3 #### [facility] CLIA [id number] [address] [place] [address] #### [id number] #### [facility] CLIA [id number] [address] [place] [address] LAB CLIA [id number] [address] [place] [address] [place] TSH SerPl-aCncon 02-08-2025 TSH Qn 1.279 m[IU]/L Normal 0.358-3.74 0 [facility] Comment on above: Order Comment: Specimen Type: BLOOD SPEC IMEN Ordering Facility: Stefani Iverson MD Address: [address] [place] [address] Result Comment: 3rd generation ultra sensitive TSH. Performed By: #### 2 4323-8, 3015-3 #### [facility] CLIA [id number] [address] [place] [address] #### [id number] #### [facility] CLIA [id number] [address] [place] [address] LAB CLIA [id number] [address] [place] [address] OF [place] CNOVon 09-14-2024 CN[facility] ESTRELLA GONGORA ([id number]) 1995 F Date Time Provider Department 09/14/24 8:00 PM JAMES SANTIAGO [facility] During your visit today, we recorded the following information about you: Temperature Pulse Respiration Blood pressure 97.7 degrees 80/minute 20/minute 136/83 Last Period 08/31/24 Robert Camille Cantu LPN 09/14/2024 9:04 PM Signed Ipratropium 0.5 mg administered via nebulizer. Patient tolerated well. See intake record for repeat vitals. Camille DANIS Jones Camille Cantu LPN 09/14/2024 9:04 PM Signed Solu medrol 125 mg IM administered to the right buttock. Patient tolerated fairly well. DANIS Hines Carla, APRN.BILINGUAL OFFICE ASSISTANT 09/14/2024 9:04 PM Signed CC: Other (Asthma attack - Entered by patient) HPI: Estrella GONGORA is an 29 year old female, with known history of asthma, presenting with complaints of an asthma attack. She states that for the past 5 to 6 days, she has had nasal congestion and a cough. 3 days ago she started having some shortness of breath so she has been using her nebulizer. States today, her symptoms have become much worse and she feels like her lungs are very tight, with continued shortness of breath and wheezing. She states that she did about 15 nebulizer treatments with albuterol today. She takes daily asthmatic medications, but does not have an albuterol inhaler. States every time she gets a cold this happens with her asthma. She denies any fevers, sore throat, ear pain, chest pain, abdominal pain, vomiting or diarrhea. States that she has a known history of eczema. She is having a flare of her eczema. She states her right hand/fourth digit is very itchy and red. She has been applying Aquaphor which usually helps, but is not helping right now. Denies any drainage from the area. PAST MEDICAL HISTORY Diagnosis Date Asthma There is no problem list on file for this patient. ALLERGIES Allergen Reactions Animal Dander Other: See Comments Sneezing, asthma attack Seasonal Allergies Other: See Comments Sneezing, asthma attack Adhesive Rash Current Outpatient Medications Medication Sig Dispense Refill cetirizine (ZYRTEC) 10 mg tablet Take by mouth once daily. albuterol (PROVENTIL) 2.5 mg /3 mL (0.083 %) nebulizer solution albuterol HFA (PROVENTIL HFA, VENTOLIN HFA) 90 mcg/actuation inhaler q 6 HR. SYMBICORT 160-4.5 mcg/actuation inhaler Inhale 2 Puffs as instructed two times a day. montelukast (SINGULAIR) 10 mg tablet every evening. albuterol HFA (PROVENTIL HFA) 90 mcg/actuation inhaler Inhale 2 Puffs as instructed every 6 hours as needed. 1 Each 0 predniSONE (DELTASONE) 20 mg tablet 1 tab po tid x 3 days,1 tab po bid x 2 days, 1 tab po every day x 2 days, 1/2 tab po every day x 1 day 16 tablet 0 No current facility-administered medications for this visit. Social History Tobacco Use Smoking status: Never Smokeless tobacco: Never Vaping Use Vaping status: Never Used Substance Use Topics Alcohol use: Never Drug use: Never Alcohol Use: Never Tobacco Use: Never History reviewed. No pertinent family history. ROS: Unless otherwise stated in this report the patient's positive and negative responses for review of systems for constitutional, eyes, ENT, cardiovascular, respiratory, gastrointestinal, neurological, , musculoskeletal, and integument systems and related systems to the presenting problem are either stated in the history of present illness or were not pertinent or were negative for the symptoms and/or complaints related to the presenting medical problem. Positives and pertinent negatives as per HPI. All others reviewed and are negative. 09/14/24194309/14/242013 BP: 136/83 Pulse: 114 80 Resp: 20 Temp: 36.5 ?C (97.7 ?F) SpO2: 95% 94% Procedures Physical Exam: Physical Exam Vitals and nursing note reviewed. Constitutional: General: She is not in acute distress. Appearance: Normal appearance. She is not ill-appearing or toxic-appearing. HENT: Right Ear: Tympanic membrane, ear canal and external ear normal. Left Ear: Tympanic membrane, ear canal and external ear normal. Nose: Congestion and rhinorrhea present. Mouth/Throat: Lips: [place]. Mouth: Mucous membranes are moist. Pharynx: Posterior oropharyngeal erythema present. No pharyngeal swelling, oropharyngeal exudate or uvula swelling. Tonsils: No tonsillar exudate or tonsillar abscesses. Cardiovascular: Rate and Rhythm: Normal rate and regular rhythm. Heart sounds: Normal heart sounds, S1 normal and S2 normal. No murmur heard. No friction rub. No gallop. Pulmonary: Effort: Pulmonary effort is normal. Tachypnea present. No accessory muscle usage, respiratory distress or retractions. Breath sounds: Decreased breath sounds and wheezing present. No rhonchi or rales. Abdominal: General: Abdomen is flat. Bowel sounds (more content not included)... Normal [facility] CNOVon 08-16-2024 CN Office Visit ([facility] ) ESTRELLA GONGORA ([id number]) 1995 F Date Time Provider Department 08/16/24 6:20 PM BRIDGET WOODARD [facility] During your visit today, we recorded the following information about you: Temperature Pulse Respiration Blood pressure 98 degrees 100/minute 18/minute 127/83 Weight Last Period 63.5 kg 08/08/24 Bridget Woodard PA-C 08/16/2024 6:40 PM Signed 1) Augmentin twice daily for 7 days 2) saline nasal rinses 3) increase fluids 4) prednisone taper as instructed 5) Bromfed 10 mL every 6 hours for cough and congestion 6) if not improving in 5-7 days you should be reevaluated by primary provider. If develops persistent fevers past 5 days, chest pain, difficulty breathing, severe headache, neck pain/stiffness go to ER Bridget Woodard PA-C 08/16/2024 6:43 PM Signed Estrella Arenas ROLAN is a 29 year old female who presents with Cough (Body aches, neck pain, nausea, ear pain, green phlegm /X 2 weeks) This is a 29-year-old female who presents with 2 weeks of nasal congestion and drainage, sinus pain and pressure, chest congestion, cough, body aches, fatigue. Taking vlbq-ocw-omqrofe cough medication without much relief. She has felt like she is using her albuterol inhaler more frequently. Denies any dizziness, ear pain, stridor, drooling, chest pain, shortness of breath, vomiting or diarrhea, rash. The history is provided by the patient. Cough Associated symptoms include chills, weight loss and myalgias. Pertinent negatives include no chest pain, no ear pain, no sore throat and no eye redness. PAST MEDICAL HISTORY Diagnosis Date Asthma Current Outpatient Medications Medication Sig Dispense Refill cetirizine (ZYRTEC) 10 mg tablet Take by mouth. SYMBICORT 160-4.5 mcg/actuation inhaler montelukast (SINGULAIR) 10 mg tablet amoxicillin-clavulanate potassium (AUGMENTIN) 875-125 mg per tablet Take 1 tablet by mouth every 12 hours for 7 days. 14 tablet 0 predniSONE (DELTASONE) 10 mg tablet Take 1 tablet by mouth once daily. TAKE 40 MG (4tabs) FOR TWO DAYS, THEN 20 MG (2tabs) FOR TWO DAYS, THEN 10 MG (1tab) FOR TWO DAYS 14 tablet 0 Rugvlykuhpjlvan-Zinssnkmt-FY (BROMFED DM) 2-30-10 mg/5 mL syrup Take 10 mL by mouth every 4 hours as needed (COUGH/CONGESTION) for up to 5 days. 300 mL 0 albuterol (PROVENTIL) 2.5 mg /3 mL (0.083 %) nebulizer solution albuterol HFA (PROVENTIL HFA, VENTOLIN HFA) 90 mcg/actuation inhaler q 6 HR. No current facility-administered medications for this visit. Social History Tobacco Use Smoking status: Never Smokeless tobacco: Never Vaping Use Vaping status: Never Used Substance Use Topics Alcohol use: Never Review of Systems Constitutional: Positive for chills and weight loss. HENT: Positive for congestion and sinus pain. Negative for ear pain and sore throat. Eyes: Negative for discharge and redness. Respiratory: Positive for cough and sputum production. Negative for stridor. Cardiovascular: Negative for chest pain. Gastrointestinal: Positive for nausea. Negative for diarrhea and vomiting. Musculoskeletal: Positive for myalgias. Skin: Negative for rash. BP 127/83 Pulse 100 Temp 98 Resp 18 Wt 140 lb (63.5kg) SpO2 100% LMP 08/08/2024 Physical Exam Vitals and nursing note reviewed. Constitutional: General: She is not in acute distress. Appearance: She is not ill-appearing or toxic-appearing. HENT: Head: Normocephalic and atraumatic. Right Ear: Tympanic membrane, ear canal and external ear normal. There is no impacted cerumen. Left Ear: Tympanic membrane, ear canal and external ear normal. There is no impacted cerumen. Nose: Congestion present. Mouth/Throat: Mouth: Mucous membranes are moist. Comments: Airway patent without stridor, trismus or muffled voice. Patient tolerating oral secretions. Voice is slightly raspy. Tonsils 1+. There is moderate posterior pharyngeal erythema with cobblestoning without edema or exudates. Uvula midline. Eyes: Conjunctiva/sclera: Conjunctivae normal. Cardiovascular: Rate and Rhythm: Regular rhythm. Tachycardia present. Pulmonary: Effort: Pulmonary effort is normal. No respiratory distress. Breath sounds: No stridor. No wheezing, rhonchi or rales. Musculoskeletal: Cervical back: Neck supple. Skin: General: Skin is warm and dry. Findings: No rash. Neurological: Mental Status: She is alert. Comments: Awake and alert. Motor gross intact. Steady gait. This is a 29-year-old female who presents with persistent upper and lower respiratory-like symptoms. At the time of my exam, patient was afebrile, well-appearing, well-hydrated, not hypoxic, non-toxic and in no acute distress and appropriate for outpatient treatment and management. I am concerned that she has a bacterial sinobronchial infection therefore I am going to start her on Augmentin. She like to start (more content not included)... Normal [facility] IGEon 03-15-2019 IgE Qn 376 IU/mL Normal 6-495 [facility] [place] Comment on above: Order Comment: [place]: M Result Comment: Perf ormed At: [facility] [address] [id number] [place] Kim [place] [id number] Performed By: #### L 750.15347 ####[id number] [place] [address]Bj# [phone] BMPon 03-07-2019 Anion gap molar conc 10 mmol/L Normal 5-16 [facility] Comment on above: Order Comment: [place]: M Performed By: #### L 500.56369, L500.60694, L500.03778, L500.27354 ####[facility] [id number] [place], [place] [address]Nu# [phone] Calcium mass conc 9.2 mg/dL Normal 8.5-10.1 [facility] Comment on above: Order Comment: [place]: M Performed By: #### L 500.20377, L500.21050, L500.25152, L500.81834 ####[facility] [id number] [place], [place] [address]Qt# [phone] Chloride molar conc 107 mmol/L Normal 98-107 [facility] Comment on above: Order Comment: [place]: M Performed By: #### L 500.77846, L500.76365, L500.56473, L500.20302 ####[facility] [id number] [place], [place] [address]Ac# [phone] CO2 molar conc 23 mmol/L Normal 21-32 [facility] Comment on above: Order Comment: [place]: M Performed By: #### L 500.78630, L500.93822, L500.16921, L500.67114 ####[facility] [id number] [place], [place] [address]Mf# [phone] Creatinine mass conc 0.754 mg/dL Normal 0.510-0.95 0 [facility] Comment on above: Order Comment: [place]: M Result Comment: Kari ents receiving either N-Acetylcysteine (NAC) or Metamizole prior to venipuncture, may have falsely depressed results. Performed By: #### L 500.35981, L500.14336, L500.33096, L500.56364 ####[facility] [id number] [place], [place] [address]Dm# [phone] Glucose mass conc 83 mg/dL Normal 70-100 [facility] Comment on above: Order Comment: [place]: M Result Comment: 70-1 00- Normal Fasting; 100-125 Impaired Fasting; greater than 126 on more than one result- Diabetes. ADA guidelines. Results may be falsely elevated after the administration of Sulfapyridine. Results may be falsely depressed after the administration of Sulfasalazine. Performed By: #### L 500.66651, L500.11263, L500.65108, L500.11971 ####[facility] [id number] [place], [place] [address]Zf# [phone] Potassium molar conc 4.4 mmol/L Normal 3.5-5.1 [facility] Comment on above: Order Comment: [place]: M Performed By: #### L 500.70719, L500.98223, L500.70281, L500.14542 ####[facility] [id number] [place], [place] [address]On# [phone] Sodium molar conc 140 mmol/L Normal 136-145 [facility] Comment on above: Order Comment: [place]: M Performed By: #### L 500.76366, L500.45432, L500.36502, L500.69990 ####[facility] [id number] [place], [place] [address]Gq# [phone] Urea nitrogen mass conc 13 mg/dL Normal 7-26 [facility] Comment on above: Order Comment: [place]: M Performed By: #### L 500.65886, L500.30018, L500.26857, L500.26920 ####[facility] [id number] [place], [place] [address]Wa# [phone] Urea nitrogen/Creatin ine mass ratio 18 mg/mg Normal 15-24 [facility] Comment on above: Order Comment: [place]: M Performed By: #### L 500.16104, L500.18404, L500.87357, L500.69190 ####[facility] [id number] [place], [place] [address]Tg# [phone] CBC W/DIFFon 03-07-2019 BASO ABS 0.00 K/CU MM Normal 0-0.2 [facility] [place] Comment on above: Order Comment: [place]: M Performed By: #### L 200.52954 ####[facility] [id number] [place] [address]Kd# [phone] Basophils/100 WBC (Bld) 0.1 % Normal 0-2 [facility] Comment on above: Order Comment: [place]: M Performed By: #### L 200.00467 ####[facility] [id number] [place] [address]Fd# [phone] EOS ABS 0.10 K/CU MM Normal 0-0.5 [facility] Comment on above: Order Comment: [place]: M Performed By: #### L 200.82156 ####[address] [address]Pe# [phone] Eosinophils/100 WBC (Bld) 0.5 % Normal 0-5 [facility] Comment on above: Order Comment: [place]: M Performed By: #### L 200.78194 ####[address] [address]Zg# [phone] Erythrocyte distribution width Ratio (RBC) 12.9 % Normal 11-14.5 [facility] Comment on above: Order Comment: [place]: M Performed By: #### L 200.46673 ####[address] [address]Aa# [phone] Hematocrit Volume Fraction (Bld) 42.1 % Normal 35.0-47.0 [facility] Comment on above: Order Comment: [place]: M Performed By: #### L 200.49651 ####[facility] [id number] [place] [address]Kb# [phone] Hemoglobin mass conc (Bld) 13.5 g/dL Normal 11.5-15.5 [facility] Comment on above: Order Comment: [place]: M Performed By: #### L 200.63680 ####[facility] [id number] [place] [address]Yp# [phone] IMMATR GRAN ABS 0.10 K/CU MM Normal Less than 2 [facility] Comment on above: Order Comment: [place]: M Performed By: #### L 200.07178 ####[facility] [id number] [place], [place] [address]Vd# [phone] IMMATURE GRAN % 0.3 % Normal Less than 2 [facility] Comment on above: Order Comment: [place]: M Performed By: #### L 200.39669 ####[place] [address]Ph# [phone] Lymphocytes #/vol (Bld) 3.40 K/CU MM Normal 0.9-4.4 [facility] Comment on above: Order Comment: [place]: M Performed By: #### L 200.36822 ####[place] [address]Ph# [phone] Lymphocytes/100 WBC (Bld) 19.0 % Low 20-40 [facility] Comment on above: Order Comment: [place]: M Performed By: #### L 200.36751 ####[place] [address]Ph# [phone] MCHC mass conc (RBC) 32.1 g/dL Normal 32.0-36.0 [facility] Comment on above: Order Comment: [place]: M Performed By: #### L 200.60257 ####[place] [address]Ph# [phone] MCV Entitic volume (RBC) 88.4 fL Normal 80.0-99.0 [facility] Comment on above: Order Comment: [place]: M Performed By: #### L 200.91622 ####[facility] [id number] [place] [address]Yo# [phone] MONO ABS 0.90 K/CU MM Normal 0.1-1.1 [facility] Comment on above: Order Comment: [place]: M Performed By: #### L 200.51172 ####[facility] [id number] [place], [place] [address]Rv# [phone] Monocytes/100 WBC (Bld) 4.8 % Normal 2-10 [facility] Comment on above: Order Comment: [place]: M Performed By: #### L 200.22130 ####[facility] [id number] [place], [place] [address]Rq# [phone] NEUTROPHIL ABS 13.50 K/CU MM High 2.0-8.3 [facility] Comment on above: Order Comment: [place]: M Performed By: #### L 200.34083 ####[facility] [id number] [place] [address]Li# [phone] Neutrophils/100 WBC (Bld) 75.3 % High 45-75 [facility] Comment on above: Order Comment: [place]: M Performed By: #### L 200.09755 ####[facility] [id number] [place] [address]Av# [phone] Nucleated RBC/100 WBC Ratio (Bld) 0.0 % Normal Less than 1 [facility] Comment on above: Order Comment: [place]: M Performed By: #### L 200.10708 ####[facility] [id number] [place] [address]Nw# [phone] Platelet mean volume Entitic volume (Bld) 9.6 fL Normal 9.4-12.4 [facility] Comment on above: Order Comment: [place]: M Performed By: #### L 200.14564 ####[facility] [id number] [place] [address]Wh# [phone] Platelets #/vol (Bld) 380 K/CU MM Normal 150-450 [facility] Comment on above: Order Comment: [place]: M Performed By: #### L 200.40136 ####[facility] [id number] [place] [address]Ak# [phone] RBC #/vol (Bld) 4.76 M/CU MM Normal 3.90-5.30 [facility] Comment on above: Order Comment: [place]: M Performed By: #### L 200.90789 ####[facility] [id number] [place], [place] [address]Mg# [phone] WBC #/vol (Bld) 18.0 K/CUMM High 4.5-11.0 [facility] Comment on above: Order Comment: [place]: M Performed By: #### L 200.36266 ####[facility] [id number] [place] [address]Kl# [phone] GFR ESTon 03-07-2019 IF AMER Greater than 60 Normal [facility] [place] Comment on above: Order Comment: [place]: M Performed By: #### L 500.07967, L500.74928, L500.32276, L500.73306 ####[facility] [id number] [place], [place] [address]Is# [phone] IF non-AFR AMER Greater than 60 Normal [facility] [place] Comment on above: Order Comment: [place]: M Performed By: #### L 500.81510, L500.30877, L500.65567, L500.80818 ####[facility] [id number] [place], [place] [address]Ym# [phone] MAGNESIUMon 03-07-2019 Magnesium mass conc 2.5 mg/dL Normal 1.6-2.6 [facility] Comment on above: Order Comment: [place]: M Performed By: #### L 500.32025, L500.96429, L500.27126, L500.95820 ####[facility] [id number] [place], [place] [address]Yl# [phone] PHOSon 03-07-2019 Phosphate mass conc 3.6 mg/dL Normal 2.5-4.9 [facility] Comment on above: Order Comment: [place]: M Performed By: #### L 500.67592, L500.59849, L500.32862, L500.71516 ####[facility] [id number] [place], [place] [address]Ci# [phone] PROG.PULMon 03-07-2019 Progress Note-Pulmonology Normal [facility] Protein mass conc [facility] Patient Name: ESTRELLA VICK [address] Date of : 89 [place], [place] [address] Unit Number: [id number] Progress Note-Pulmonology Patient Status: DIS IN Attending Doctor: Stefani Iverson MD Service Date: 03/07/19 1031 Progress Note-Pulmonology Subjective Subjective: She states she is feeling much better. Ready to go home. Occasional nonproductive cough. Feels her breathing is back to her baseline. Objective Vital Signs: Vital Signs (Last) Result Date Time Pulse Ox 92 03/07 813 B/P 100/49 03/07 813 Temp 97.8 03/07 813 Pulse 128 03/07 813 Resp 18 03/07 813 B/P Mean 86 03/06 1330 O2 Delivery NASAL CANNULA 03/06 1000 O2 Flow Rate 2L 03/06 1000 FiO2 80 03/06 0000 IandO 24 Hour Summary 03/07 0000 Intake Total 965 Output Total 601 Balance 364 Intake, IV 275 Intake, Oral 690 Number 4 Unmeasured Voids Output, Stool 1 Output, Urine 600 Exam: General: Awake, alert, no acute distress. Cooperative with exam HEENT: NCAT, PERRLA, mmm Neck: No JVD, no cervical lymphadenopathy, no carotid bruit Pulmonary: Decreased air entry with scattered inspiratory and expiratory wheezes bilaterally Cardiac: Regular rate and rhythm. Regular S1-S2, no S3-S4. No murmur, click, rub. Peripheral pulses 2+. No peripheral edema Abdomen: Flat, soft, nontender, no hepatosplenomegaly. Bowel sounds present in all 4 quadrants Skin: Warm, dry, no cyanosis Neurological: Cranial nerves II-XII grossly intact. Appropriate muscle bulk for age. Strength in bilateral upper arms 5/5, bilateral lower extremities 5/5 Medications: Medications Current Sig/Rodri Start time Last Medication Dose Route Stop Time Status Admin Acetaminophen 1,000 MG TIDPRN PRN 03/06 0930 AC (TYLENOL TAB) PO Albuterol/Ipratropium 3 ML QIDRT 03/06 1230 AC 03/07 (DUONEB 0.5-3 MG/3 INH 0733 ML INH.NEB) Budesonide 0.5 MG BID 03/06 2100 AC 03/07 (PULMOCORT 0.5MG/2ML INH 0733 INH.NEB) Fluticasone 1 SPRAY BID 03/06 1030 AC 03/06 Propionate NS 1135 (FLONASE NASAL SPRAY) Guaifenesin 10 ML Q4HPRN PRN 03/06 1700 AC 03/06 (ROBITUSSIN 200MG/10 PO 1759 ML ORAL LIQ) Loratadine 10 MG QHS 03/06 2200 AC (CLARITIN TAB) PO Prednisone 40 MG QDAYWM 03/06 0800 AC 03/07 (predniSONE TAB) PO 03/16 0759 0802 Lab Results: Lab 24hr (CBC/BMP Fishbone) 03/07/19 0737: [Embedded Image Not Available] Sodium Pending, Potassium Pending, Chloride Pending, Carbon Dioxide Pending, Anion Gap Pending, BUN Pending, Creatinine Pending, BUN/Creatinine Ratio Pending, Glucose Pending, Total Calcium Pending, Phosphorus Pending, Magnesium Pending, RBC 4.76, MCV 88.4, MCHC 32.1, RDW 12.9, MPV 9.6, Immature Gran % (Auto) 0.3, Abs Immat Gran (auto) 0.10, Seg Neutrophils % 75.3 H, Lymphocytes % 19.0 L, Monocytes % 4.8, Eosinophils % 0.5, Basophils % 0.1, Neutrophils # 13.50 H, Lymphocytes # 3.40, Monocytes # 0.90, Eosinophils # 0.10, Basophils # 0.00, Nucleated RBCs 0.0 Assessment/Plan Assessment/Problem List: 1. Asthma exacerbation Acute In summary Ms. Vick is a 89yo-dko-Gjisclwlt female with PMHx of Exercise induced Bronchoconstriction and Seasonal Allergy induced Asthma with Seasonal allergies being her primary trigger who presents from [facility] on 03[facility]19 secondary to her SPO2 being 90% and significant work of breathing. Transfer to ICU for increased SOB, work of breathing in early am of 03/06 and transferred to F in the evening on 03/06. Assessment: * Acute Asthma Exacerbation secondary to Entero/Rhinovirus vs Anxiety * Anxiety 2/2 Albuterol/Steroids or underlying baseline Anxiety * Tachycardia 2/2 Albuterol treatments * Hx of Asthma Plan: * Nebulizer treatments to include Budesonide and DuoNebs * Respiratory PCR positive for Entero/Rhinovirus. Procalcitonin negative * Continue PO Prednisone taper as written * Continue Flonase and Claritin * IgE pending * No antibiotics at this time as there is no evidence to support bacterial infectious process * CXR negative for any acute process * Currently oxygenating adequately on room air. Goal SpO2 > 92% * She will likely benefit from outpatient follow up with Pulmonary as she could possibly benefit from trial ICS (ie Pulmicort) daily to aide in less exacerbations as she had one in October 2018 as well, making her poorly controlled Asthma, however, she is moving to [place] next month. Advise to follow up with Pulmonary once she is established there She is stable for discharge from a Pulmonary standpoint. ATTENDING ATTESTATION: Patient individually seen/examined. Agree with the FLAME HARDENER's notes, assessment and plan. OK to discharge home today. Collaborating Physician: Meseret Berumen DO Disclaimer This dictation was created using voice recognition software. Phonetic and/or minor grammatical errors may exist. eSign Date and Time Meseret Berumen DO Verified/Reviewed by 03/07/19 1556 Rosa Garcia [facility] Verified/Reviewed by 03/07/19 1036 Normal [facility] [place] CBC W/DIFFon 03-06-2019 BASO ABS 0.00 K/CU MM Normal 0-0.2 [facility] [place] Comment on above: Order Comment: [place]: M Performed By: #### L 200.04404 ####[facility] [id number] [place], [place] [address]Oi# [phone] Basophils/100 WBC (Bld) 0.1 % Normal 0-2 [facility] [place] Comment on above: Order Comment: [place]: M Performed By: #### L 200.34746 ####[facility] [id number] [place], [place] [address]Sr# [phone] EOS ABS 0.00 K/CU MM Normal 0-0.5 [facility] [place] Comment on above: Order Comment: [place]: M Performed By: #### L 200.58270 ####[facility] [id number] [place], [place] [address]Po# [phone] Eosinophils/100 WBC (Bld) 0.0 % Normal 0-5 [facility] [place] Comment on above: Order Comment: [place]: M Performed By: #### L 200.03223 ####[facility] [id number] [place], [place] [address]Zu# [phone] Erythrocyte distribution width Ratio (RBC) 12.4 % Normal 11-14.5 [facility] [place] Comment on above: Order Comment: [place]: M Performed By: #### L 200.19855 ####[address] [address]Lm# [phone] Hematocrit Volume Fraction (Bld) 39.5 % Normal 35.0-47.0 [facility] Comment on above: Order Comment: [place]: M Performed By: #### L 200.82191 ####[place] [address]Ph# [phone] Hemoglobin mass conc (Bld) 12.8 g/dL Normal 11.5-15.5 [facility] [place] Comment on above: Order Comment: [place]: M Performed By: #### L 200.03811 ####[facility] [id number] [place] [address]Dx# [phone] IMMATR GRAN ABS 0.10 K/CU MM Normal Less than 2 [facility] [place] Comment on above: Order Comment: [place]: M Performed By: #### L 200.86440 ####[facility] [id number] [place] [address]Ax# [phone] IMMATURE GRAN % 0.5 % Normal Less than 2 [facility] [place] Comment on above: Order Comment: [place]: M Performed By: #### L 200.57263 ####[facility] [id number] [place] [address]Mw# [phone] Lymphocytes #/vol (Bld) 0.40 K/CU MM Low 0.9-4.4 [facility] [place] Comment on above: Order Comment: [place]: M Performed By: #### L 200.73381 ####[facility] [id number] [place], [place] [address]Qw# [phone] Lymphocytes/100 WBC (Bld) 2.5 % Low 20-40 [facility] Comment on above: Order Comment: [place]: M Performed By: #### L 200.47911 ####[facility] [id number] [place] [address]Ze# [phone] MCHC mass conc (RBC) 32.4 g/dL Normal 32.0-36.0 [facility] Comment on above: Order Comment: [place]: M Performed By: #### L 200.27531 ####[address] [address]Dz# [phone] MCV Entitic volume (RBC) 88.2 fL Normal 80.0-99.0 [facility] Comment on above: Order Comment: [place]: M Performed By: #### L 200.13951 ####[address] [address]Es# [phone] MONO ABS 0.20 K/CU MM Normal 0.1-1.1 [facility] Comment on above: Order Comment: [place]: M Performed By: #### L 200.60976 ####[address] [address]Uf# [phone] Monocytes/100 WBC (Bld) 1.0 % Low 2-10 [facility] Comment on above: Order Comment: [place]: M Performed By: #### L 200.16332 ####[facility] [id number] [place] [address]Ym# [phone] NEUTROPHIL ABS 16.00 K/CU MM High 2.0-8.3 [facility] Comment on above: Order Comment: [place]: M Performed By: #### L 200.66322 ####[facility] [id number] [place], [place] [address]Ph# [phone] Neutrophils/100 WBC (Bld) 95.9 % High 45-75 [facility] Comment on above: Order Comment: [place]: M Performed By: #### L 200.63473 ####[facility] [id number] [place], [place] [address]Du# [phone] Nucleated RBC/100 WBC Ratio (Bld) 0.0 % Normal Less than 1 [facility] Comment on above: Order Comment: [place]: M Performed By: #### L 200.16543 ####[facility] [id number] [place] [address]Gq# [phone] Platelet mean volume Entitic volume (Bld) 10.0 fL Normal 9.4-12.4 [facility] Comment on above: Order Comment: [place]: M Performed By: #### L 200.97164 ####[address] [address]Wi# [phone] Platelets #/vol (Bld) 323 K/CU MM Normal 150-450 [facility] Comment on above: Order Comment: [place]: M Performed By: #### L 200.61156 ####[facility] [id number] [place] [address]Se# [phone] RBC #/vol (Bld) 4.48 M/CU MM Normal 3.90-5.30 [facility] Comment on above: Order Comment: [place]: M Performed By: #### L 200.33929 ####[facility] [id number] [place] [address]Gt# [phone] WBC #/vol (Bld) 16.7 K/CUMM High 4.5-11.0 [facility] Comment on above: Order Comment: [place]: M Performed By: #### L 200.53737 ####[facility] [id number] [place] [address]Ks# [phone] CONS.INTENon 03-06-2019 CONS.INTEN [facility] Patient Name: ESTRELLA VICK [address] [facility] Date of : [address] [id number] Unit Number: [id number] Consultation-Operations Chief Patient Status: ADM Mercedes Attending Doctor: Stefani Iverson MD Service Date: 03/06/1914 History of Present Illness Referring Physician Stefani Iverson MD Consulted Provider Meseret Berumen DO Source of Information Family Member, Patient Reason for Consult Asthma exacerbation Living Situation Home - Independent History of Present Illness Ms. Vick is a 31xx-ykn-Gtpzs[age]v female with PMHx of Exercise induced Bronchoconstriction and Seasonal Allergy induced Asthma with Seasonal allergies being her primary trigger who presents from [facility] on 03/05/19 secondary to her SPO2 being 90% and significant work of breathing. 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 On Monday03/02/19 she began with a cough and some SOB. On Monday she went to [facility] where she was given cough syrup and discharged home. She called off of work on Monday. She has used a large amount of her home Albuterol nebulizers over the past few days since symptoms began. On Monday she attempted to go to work but ended up coming home because her breathing was to bad. [facility] and she was actually provided an Rx on Monday for Prednisone but was never told about it or given to her by pharmacy. Her SPO2 was 90% on RA, she had increased work of breathing and sent to ED. She was admitted to the floor under medical service after recieving Albuterol 3pack, Mg, Solu-Medrol 125mg administered IM at [facility]. I was called by the attending Dr Iverson from the floor as the pt was having more SOB, wheezing, complaining of feeling tired from a breathing standpoint and critical care opinion was sought. At time of exam the pt is awake, alert, mild to mod resp extemis, using accessory muscles to breath, on 6L, sig dyspnea with conversation, no stridor, wheezing on ausculation predominately RUL/RML/RLL and poor air exchange in left lung. She is reporting feeling tired from a breathing standpoint, the pt looks exhausted, is laying her head on pillow and opening eyes to answer questions. She denies any fever, chills, nausea, abdominal pain. Reports SOB that is helped some with breathing treatments, wheezing, productive cough and cannot tell me color of phlegm. Past Medical/Surgical Hx Past Medical History Summary * Exercise induced Bronchoconstriction * Seasonal Allergy induced Asthma * Asthma exacerbation requiring intubation 3yrs ago in [place], [place] Past Surgical History Summary * None Family/Social History Family History MOTHER, Age 50-60. FATHER, Age 50-60. 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 She is engaged. Denies any tobacco use or illicit drug use. She reports some social ETOH a couple times per month. Advance Directives Advance Directives Full Code Allergies/Home Medications Allergies Coded Allergies: NO KNOWN DRUG ALLERGIES (03/05/19) Home Medications Noreth A-Et Estra/Fe Fumarate (Microgestin Fe 1.5-30 Tab) 1 EACH TABLET 1 EACH PO QDAY, Ref 0 (Reported) Entered as Reported by TANNA POWERS on 03/05/191729 Last Action: Converted on 03/05/191814 by NOLBERTO CORONEL Discontinued Medications Albuterol Sulfate 0.083% 2.5MG/3ML Ud* 2.5 MG/3 ML VIAL.NEB 2.5 MG INH Q6HPRN PRN SOB/ Wheezing, Ref 0 (Reported) Discontinued reason: DC By Physician Last Action: Discontinued on 03/06/19828 by STEFANI IVERSON Azithromycin* (Zithromax 250MG Tab*) 250 MG TABLET 250 MG PO TAPER (DAILY) #6 TAB, Ref 0 TAKE 2 TABLETS PO ON DAY 1, THEN TAKE 1 TABLET DAILY UNTIL GONE Discontinued reason: DC By Physician Last Action: Discontinued on 03/05/191729 by TANNA POWERS D-Methorphan Hb/P-Epd HCl/Bpm* (Bromfed Dm Cough Syrup*) 118 ML SYRUP 10 ML PO Q6HPRN PRN COUGH CONGESTION #160 ML, Ref 0 Discontinued reason: DC By Physician Last Action: Discontinued on 03/05/191729 by TANNA POWERS Doxycycline Monohydrate* (Doxycycline Monohyd 100MG Tab*) 100 MG TABLET 100 MG PO BID # 20 TAB, Ref 0 Discontinued reason: DC By Physician Last Action: Discontinued on 03/05/191729 by TANNA POWERS predniSONE* (predniSONE 20MG TAB*) 20 MG TABLET 20 MG PO TAPER (DAILY) #15 TAB, Ref 0 1 po tid 3 days then 1 po bid for 2 days then 1 po qd for 1 day then 1/2 tab po qd for 1 day Discontinued reason: DC By Physician Last Action: Discontinued on 03/05/191730 by TANNA POWERS Inpatient Medications Medications Current Sig/Rodri Start time Last Medication Dose Route Stop Time Status Admin Acetaminophen 1,000 MG TIDPRN PRN 03/05 2030 AC 03/05 (TYLENOL TAB) PO 2210 Budesonide 0.5 MG BID 03/05 2100 AC 03/05 (PULMOCORT 0.5MG/2ML INH 2108 INH.NEB) Guaifenesin 10 ML Q4HPRN PRN 03/05 2230 AC (ROBITUSSIN 200MG/10 PO ML ORAL LIQ) Lactated Ringer's 1,000 ML CONT 03/06 100 AC (Lactated Ringers) IV Levalbuterol HCl 1.25 MG ONCE ONE 03/06 2330 AC (XOPENEX 1.25 MG/0.5 INH 03/06 2331 ML INH.NEB) Levalbuterol HCl 1.25 MG Q2HPRN PRN 03/05 233 AC 03/06 (XOPENEX 1.25 MG/0.5 INH 0014 ML INH.NEB) Levalbuterol HCl 1.25 MG Q4HRT 03/05 2030 AC 03/05 (XOPENEX 1.25 MG/0.5 INH 2315 ML INH.NEB) Methylprednisolone 40 MG Q6H@20 03/05 2000 AC 03/05 Sodium Succinate IV 2022 (SOLU-MEDROL VIAL) Morphine Sulfate 2 MG Q4HPRN PRN 03/06 100 AC (MORPHINE D.SYR) IV Ondansetron HCl 4 MG Q6HPRN PRN 03/06 100 AC (ZOFRAN VIAL) IV Patient Own 1 EA QDAY 03/06 09 AC Medication PO (PATIENT USING OWN MEDICATION FROM HOME) Review of Systems Constitutional Reports: Sick Contacts, Sweats. Denies: Fever, Fatigue, Chills, Malaise, Weakness, Weight Loss, Weight Gain, Recent Illness. EENT Denies: Vision Change, Vision Problems, Sore Throat, Dental Problems, Dysphagia, Odynophagia, Nasal Congestion, Nasal Drainage. Cardiovascular Reports: Dyspnea on Exertion. Denies: Chest Pain, Pain on Exertion, Orthopnea, Paroxysmal Nocturnal Dsyp, Palpitations, Syncope, Leg Swelling, Nocturia. Pulmonary Reports: Dyspnea, Cough, Sputum, Wheezing. Denies: Pleuritic Chest Pain, Hemoptysis, Cyanosis, Recent Travel. Gastrointestinal Denies: Abdominal Pain, Nausea, Vomiting, Diarrhea, Constipation, Loss of Appetite, Hematochezia, Melena. Genitourinary Denies: Dysuria, Hematuria, Retention, Hesitancy, Urgency. Neuro Denies: Headache, Syncope, Dizziness, Vertigo, Numbness, Weakness, Tingling, Difficulty with Speech, Blurry Vision, Diplopia. Physical Exam Vital Signs Vital Signs (Last) Result Date Time FiO2 80 05/08 0000 Pulse Ox 95 03/05 1900 B/P 106/52 / 1900 Temp 97.9 03/05 1900 Pulse 120 03/05 1900 Resp 18 03/05 1900 Vital Signs (24hr) Date Temp Pulse Resp B/P B/P Mean Pulse Ox FiO2 /07-05/08 97.9-98.2 120-127 18-22 92-106/52-54 90-95 80 Physical Examination Summary General: Awake, alert, no acute distress, cooperative with exam. HEENT: Head: Atraumatic, normocephalic. Eyes: Pupils are equal and reactive to light, 3 mm, brisk, nonicteric sclera. No nystagmus. Nose: No drainage. Throat: Trachea midline. Neck: No JVD, no cervical lymphadenopathy, no carotid bruit. Pulmonary: Decreased and poor air exchange left upper lobe left lower lobe. There is scattered wheezing throughout right upper lobe, right middle lobe, lesser extent to right lower lobe and decreased air exchange right lower lobe. Oxygen delivery via nasal cannula 6 L. Cardiac: Tachycardic regular rate and rhythm. Regular S1-S2, no S3-S4. No murmur, click, rub. Peripheral pulses 2+. No peripheral edema. Abdomen: Flat, soft, nontender, no hepatosplenomegaly. Bowel sounds present in all 4 quadrants. Skin: Warm, dry, no cyanosis. Neurological: Cranial nerves II-XII grossly intact. Appropriate muscle bulk for age. Strength in bilateral upper arms 5/5, bilateral lower extremities 5/5. Able to follow simple commands. Patient is anxious, tremors. Lab: Laboratory Tests (48hr) 03/05 1356 Chemistry Sodium (136 - 145 MMOL/L) 139 Potassium (3.5 - 5.1 MMOL/L) 4.0 Chloride (98 - 107 MMOL/L) 107 Carbon Dioxide (21 - 32 MMOL/L) 24 Anion Gap (5 - 16 MMOL/L) 8 BUN (7 - 26 MG/DL) 9 Creatinine (0.510 - 0.950 MG/DL) 0.690 Est GFR ( Amer) (ML/MIN) Greater than 60 Est GFR (Non-Af Amer) (ML/MIN) Greater than 60 BUN/Creatinine Ratio (15 - 24) 13 L Glucose (70 - 100 MG/DL) 152 H Total Calcium (8.5 - 10.1 MG/DL) 8.6 Magnesium (1.6 - 2.6 MG/DL) 2.1 Conclusion / Plan Conclusion/Plan 1. Asthma exacerbation Acute In summary Ms. Vick is a 73ux-rwo-Tmxexgghk female with PMHx of Exercise induced Bronchoconstriction and Seasonal Allergy induced Asthma with Seasonal allergies being her primary trigger who presents from [facility] on 03/05[facility]19 secondary to her SPO2 being 90% and significant work of breathing. Transfer to ICU for increased SOB, work of breathing in early am of 03/06. Assessment: * Acute Asthma Exacerbation likely secondary to viral process vs Anxiety * Anxiety 2/2 Albuterol/Steroids or underlying baseline Anxiety * Tachycardia 2/2 Albuterol treatments * Hx of Asthma Plan: * Given pt being tired from a breathing standpoint we will initiate NIV at low pressures, she has been intubated 3yrs ago for Asthma exacerbation * She did not tolerate NIV in ICU as she has claustraphobia, she was tearful and severly anxious. We will attempt high flow nasal cannula to provide some PEEP and help with her SOB * Morphine as needed for air hunger, she is responding very well to this * Nebulizer treatments to include Budesonide, Levalbuterol * Respiratory PCR, check Procalcitonin, Check CBC * Solu-Medrol IV * No antibiotics at this time as there is no evidence to support bacterial infectious process * Gentle IV fluid hydration * CXR negative for any acute process * She will likely benefit from outpatient follow up with Pulmonary as she could possibly benefit from trial Corticosteroid inhaler daily to aide in less exacerbations as she had one in October 2018 as well, making her poorly controlled Asthma. * DVT Prophylaxis: SCDs, pt is petrified of needles and adds to anxiety currently that she has from SOB. * GI Prophylaxis: Pepcid * Code status: Full code ATTENDING ATTESTATION: Patient individually seen/examined. Agree with the FLAME HARDENER's notes, assessment and plan. Currently down to 4 L of NC and feeling much better, about to eat breakfast. Switch IV to po Prednisone taper. Add Flonase and Vickie and Check IgE Dispo: Will likely transfer to Regular Floor later this afternoon where [facility] will continue to follow. CCT = 32 mins Seen and examined with Meseret Berumen DO Disclaimer This dictation was created using voice recognition software. Phonetic and/or minor grammatical errors may exist. eSign Date and Time Meseret Berumen DO Verified/Reviewed by 03/06/19 0916 Arun Recinos BILINGUAL OFFICE ASSISTANT Normal [facility] Consultation-Int [facility]ivist [facility] HCG Qn Negative Normal NEGATIVE [facility] Comment on above: Order Comment: [place]: M Performed By: #### L 500.03212, L500.90728, L500.52336, L500.41344, L500.41888, L500.74327 #### [facility] [address] [place] [address] [facility] 03-06-2019 Albumin mass conc 4.1 g/dL Normal 3.2-5.0 [facility] Comment on above: Order Comment: [place]: M Performed By: #### L 500.71024, L500.03982, L500.47216, L500.15004, L500.63727, L500.12306 #### [facility] [address] [place] [address] Albumin/Globulin mass ratio 1.2 {ratio} Normal 0.8-2.0 [facility] Comment on above: Order Comment: [place]: M Performed By: #### L 500.98907, L500.41994, L500.09426, L500.31497, L500.02478, L500.41801 #### [facility] [address] [place] [address] ALK PHOS 91 U/L Normal 45-117 [facility] Comment on above: Order Comment: [place]: M Performed By: #### L 500.11588, L500.05316, L500.32479, L500.84829, L500.54652, L500.56578 #### [facility] [address] [place] [address] ALT enzyme act/vol 18 U/L Normal 13-61 [facility] Comment on above: Order Comment: [place]: M Result Comment: RESU LTS MAY BE FALSELY DEPRESSED AFTER THE ADMINISTRATION OF SULFASALAZINE AND/OR SULFAPYRIDINE. Performed By: #### L 500.28947, L500.34702, L500.02069, L500.35331, L500.00562, L500.14129 #### [facility] [address] [place] [address] BILI DIRECT 0.08 MG/DL Normal 0.00-0.20 [facility] Comment on above: Order Comment: [place]: M Performed By: #### L 500.10702, L500.64476, L500.36209, L500.01833, L500.42202, L500.98084 #### [facility] [address] [place], [place] [address] BILI TOTAL 0.2 MG/DL Normal 0.2-1.0 [facility] Comment on above: Order Comment: [place]: M Performed By: #### L 500.04626, L500.05411, L500.69803, L500.33740, L500.34095, L500.05040 #### [facility] [address] [place], [place] [address] Globulin mass conc (S) 3.5 g/dL Normal 2.2-4.2 [facility] Comment on above: Order Comment: [place]: M Performed By: #### L 500.62268, L500.20787, L500.80168, L500.77764, L500.73821, L500.11388 #### [facility] [address] [place] [address] Protein mass conc 7.6 g/dL Normal 6.0-8.5 [facility] Comment on above: Order Comment: [place]: M Performed By: #### L 500.52940, L500.46776, L500.49247, L500.09265, L500.88155, L500.06280 #### [facility] [address] [place] [address] SGOT (AST) 14 U/L Normal 8-34 [facility] Comment on above: Order Comment: [place]: M Result Comment: RESU LTS MAY BE FALSELY DEPRESSED AFTER THE ADMINISTRATION OF SULFASALAZINE AND/OR SULFAPYRIDINE. Performed By: #### L 500.23346, L500.45246, L500.57467, L500.15671, L500.97195, L500.31264 #### [facility] [address] [place] [address] PHOSon 03-06-2019 Phosphate mass conc 3.1 mg/dL Normal 2.5-4.9 [facility] Comment on above: Order Comment: [place]: M Performed By: #### L 500.26598, L500.05380, L500.29251, L500.07919, L500.12142, L500.43685 #### [facility] [address] [place] [address] PROCALCITONINon 03-06-2019 Protein mass conc 0.05 g/dL Normal 0.00-0.50 [facility] Comment on above: Order Comment: [place]: M Result Comment: PCT CONCENTRATION INTERPRETATION PCT <= 0.5 NG/ML: SYSTEMIC INFECTION (SEPSIS) IS NOT LIKELY. LOCAL BACTERIAL INFECTION IS POSSIBLE. PCT >0.5 AND <= 2.0 NG/ML: SYSTEMIC INFECTION (SEPSIS) IS POSSIBLE, BUT OTHER CONDITIONS ARE KNOWN TO ELEVATE PCT WELL. PCT >2.0 NG/ML: SYSTEMIC INFECTION (SEPSIS) IS LIKELY UNLESS OTHER CAUSES ARE KNOWN. PCT >= 10.0 NG/ML: IMPORTANT SYSTEMIC INFLAMMATORY RESPONSE, ALMOST EXCLUSIVELY DUE TO SEVERE BACTERIAL SEPSIS OR SEPTIC SHOCK Performed By: #### L 550.37402 ####[facility] [id number] [place], [place] [address]Ap# [phone] RESPIRATORY PCRon 03-06-2019 ADENOVIRUS PCR NOT DETECTED Normal NOT DETECTD [facility] Comment on above: Order Comment: [place]: M Performed By: #### L 770.80112 ####[facility] [id number] [place] [address] 31604Em# [phone] B PERTUSSIS PCR NOT DETECTED Normal NOT DETECTD [facility] Comment on above: Order Comment: [place]: M Performed By: #### L 770.21625 ####[facility] [id number] [place] [address] 82728Pq# [phone] C PNEUMONIA PCR NOT DETECTED Normal NOT DETECTD [facility] Comment on above: Order Comment: [place]: M Performed By: #### L 770.73153 ####[facility] [id number] [place] [address] 79968Ra# [phone] CORONAVIR 229E NOT DETECTED Normal NOT DETECTD [facility] Comment on above: Order Comment: [place]: M Performed By: #### L 770.73372 ####[facility] [id number] [place] [address] 22537Fu# [phone] CORONAVIR HKU1 NOT DETECTED Normal NOT DETECTD [facility] Comment on above: Order Comment: [place]: M Performed By: #### L 770.77204 ####[facility] [id number] [place] [address] 58547Bu# [phone] CORONAVIR NL63 NOT DETECTED Normal NOT DETECTD [facility] Comment on above: Order Comment: [place]: M Performed By: #### L 770.27942 ####[facility] [id number] [place] [address] 44093Jk# [phone] CORONAVIR OC43 NOT DETECTED Normal NOT DETECTD [facility] Comment on above: Order Comment: [place]: M Performed By: #### L 770.67189 ####[facility] [id number] [place] [address] 56380Rq# [phone] FLU A NO SUBTYP NOT DETECTED Normal NOT DETECTD [facility] Comment on above: Order Comment: [place]: M Performed By: #### L 770.20224 ####[address] [address]Qh# [phone] HUMAN METAPNEUM NOT DETECTED Normal NOT DETECTD [facility] Comment on above: Order Comment: [place]: M Performed By: #### L 770.06950 ####[address] [address]Ux# [phone] INFLUENZA A H1 NOT DETECTED Normal NOT DETECTD [facility] Comment on above: Order Comment: [place]: M Performed By: #### L 770.28460 ####[address] [address]Jd# [phone] INFLUENZA A H3 NOT DETECTED Normal NOT DETECTD [facility] Comment on above: Order Comment: [place]: M Performed By: #### L 770.93870 ####[facility] [id number] [place] [address] 24169Vv# [phone] INFLUENZA B PCR NOT DETECTED Normal NOT DETECTD [facility] Comment on above: Order Comment: [place]: M Performed By: #### L 770.05345 ####[facility] [id number] [place] [address] 12651Gq# [phone] M PNEUMONIA PCR NOT DETECTED Normal NOT DETECTD [facility] Comment on above: Order Comment: [place]: M Performed By: #### L 770.88078 ####[facility] [id number] [place], [place] [address]Gq# [phone] PARAINFLUENZA 1 NOT DETECTED Normal NOT DETECTD [facility] Comment on above: Order Comment: [place]: M Performed By: #### L 770.07927 ####[facility] [id number] [place], [place] [address]Yp# [phone] PARAINFLUENZA 2 NOT DETECTED Normal NOT DETECTD [facility] Comment on above: Order Comment: [place]: M Performed By: #### L 770.07806 ####[facility] [id number] [place] [address] 23152Yg# [phone] PARAINFLUENZA 3 NOT DETECTED Normal NOT DETECTD [facility] Comment on above: Order Comment: [place]: M Performed By: #### L 770.99284 ####[address] [address]Hg# [phone] PARAINFLUENZA 4 NOT DETECTED Normal NOT DETECTD [facility] Comment on above: Order Comment: [place]: M Performed By: #### L 770.30559 ####[facility] [id number] [place] [address] 687[address]Fd# [phone] RHINO/ENTERO DETECTED High NOT DETECTD [facility] Comment on above: Order Comment: [place]: M Result Comment: CRIT ICAL VALUE(S) VERIFIED AND CALLED TO AND READ BACK BY GABBY AT 0649 03/06/19 BY BRADLY BARRON Performed By: #### L 770.99444 ####[facility] [id number] [place] [address] 14305Bt# [phone] RSV NOT DETECTED Normal NOT DETECTD [facility] Comment on above: Order Comment: [place]: M Performed By: #### L 770.32588 ####[facility] [id number] [place] [address] 50204Ta# [phone] BMPon 03-05-2019 Anion gap molar conc 8 mmol/L Normal 5-16 [facility] Comment on above: Order Comment: [place]: M Performed By: #### L 500.90019, L500.65821, L500.69237, L500.54909, L500.57594, L500.18668 #### [facility] LABORATORY [facility] [place] [address] Calcium mass conc 8.6 mg/dL Normal 8.5-10.1 [facility] Comment on above: Order Comment: [place]: M Performed By: #### L 500.63833, L500.83192, L500.46691, L500.04582, L500.60332, L500.59520 #### [facility] LABORATORY [address] [place] [address] Chloride molar conc 107 mmol/L Normal 98-107 [facility] Comment on above: Order Comment: [place]: M Performed By: #### L 500.37988, L500.29096, L500.14065, L500.68316, L500.34777, L500.98251 #### [facility] LABORATORY [address] [place] [address] CO2 molar conc 24 mmol/L Normal 21-32 [facility] Comment on above: Order Comment: [place]: M Performed By: #### L 500.35064, L500.05735, L500.28107, L500.61061, L500.54737, L500.43912 #### [facility] LABORATORY [address] [place] [address] Creatinine mass conc 0.690 mg/dL Normal 0.510-0.95 0 [facility] Comment on above: Order Comment: [place]: M Result Comment: Kari ents receiving either N-Acetylcysteine (NAC) or Metamizole prior to venipuncture, may have falsely depressed results. Performed By: #### L 500.13430, L500.49567, L500.48512, L500.63645, L500.09900, L500.44311 #### [facility] LABORATORY [address] [place] [address] Glucose mass conc 152 mg/dL High 70-100 [facility] Comment on above: Order Comment: [place]: M Result Comment: 70-1 00- Normal Fasting; 100-125 Impaired Fasting; greater than 126 on more than one result- Diabetes. ADA guidelines. Results may be falsely elevated after the administration of Sulfapyridine. Results may be falsely depressed after the administration of Sulfasalazine. Performed By: #### L 500.98895, L500.48933, L500.12622, L500.67359, L500.32079, L500.05391 #### [facility] LABORATORY [address] [place] [address] Potassium molar conc 4.0 mmol/L Normal 3.5-5.1 [facility] Comment on above: Order Comment: [place]: M Performed By: #### L 500.62778, L500.84786, L500.39558, L500.12286, L500.91509, L500.98912 #### [facility] LABORATORY [address] [place], [place] [address] Sodium molar conc 139 mmol/L Normal 136-145 [facility] Comment on above: Order Comment: [place]: M Performed By: #### L 500.27139, L500.47207, L500.25903, L500.60823, L500.01507, L500.81193 #### [facility] LABORATORY [address] [place], [place] [address] Urea nitrogen mass conc 9 mg/dL Normal 7-26 [facility] Comment on above: Order Comment: [place]: M Performed By: #### L 500.00521, L500.55980, L500.99871, L500.59911, L500.46326, L500.68931 #### [facility] LABORATORY [address] [place] [address] Urea nitrogen/Creatin ine mass ratio 13 mg/mg Low 15-24 [facility] Comment on above: Order Comment: [place]: M Performed By: #### L 500.26562, L500.78955, L500.17117, L500.05300, L500.76215, L500.93503 #### [facility] LABORATORY [address] [place] [address] # [phone] CHEST EXPIRATION (ONE VIEW)o n 03-05-2019 CHEST EXPIRATION (ONE VIEW) CHEST EXPIRATION (ONE VIEW) Ordering Physician: Angelica Neumann MD 03/05/2019 12:34 PM CHEST EXPIRATION (ONE VIEW): Clinical Statement: History of pneumothorax. Cough and wheezing. Comparison: 11/27/2018 FINDINGS: No evidence of pneumothorax. No focal consolidation or pleural effusion. Pulmonary vasculature is within normal limits. IMPRESSION: No pneumothorax. ---- Electronic Signature on File ---- Signed By: Cyril Hartman MD [email or web address] Dictated: 03/05/2019 1:22 PM Signed: 03/05/2019 1:23 PM Reported By: CYRIL HARTMAN M.D. Signed By: CYRIL HARTMAN M.D. [facility] CHEST PA/AP AND LATERALon CHEST PA/AP AND LATERAL CHEST PA/AP & LATERAL Ordering Physician: Angelica Neumann MD 03/05/2019 12:31 PM PA AND LATERAL CHEST: Clinical Statement: Cough. Wheezing. History of pneumothorax. Comparison: 11/27/2018 FINDINGS: Chest examination reveals no acute abnormality of the lungs, heart, mediastinum or bony thorax. IMPRESSION: No acute cardiac pulmonary disease. ---- Electronic Signature on File ---- Signed By: Cyril Hartman MD [email or web address] Dictated: 03/05/2019 1:20 PM Signed: 03/05/2019 1:22 PM Reported By: CYRIL HARTMAN M.D. Signed By: CYRIL HARTMAN M.D. [facility] DSon 03-05-2019 DS DATE OF ADMISSION: 0 03/05/2019 DATE OF DISCHARGE: 03/07/2019 DISCHARGE DIAGNOSES: 1. Acute respiratory failure. 2. Acute asthma exacerbation. 3. Bronchospasm. 4. Rhinovirus. DISCHARGE INSTRUCTIONS: Patient is being discharged to home with followup with me in the office. MEDICATIONS: 1. Steroid taper. 2. Continue with her nebulizer treatments at home. 3. Pulmicort 2 puffs b.i.d. HOSPITAL COURSE: Ms. Vick is a 24-year-old very pleasant female with history of asthma, well controlled, has not had an exacerbation in approximately 3 years. Went to [facility] with shortness of breath, chest tightness, wheezing, was given breathing treatments as well as steroids. She did not fill her steroid prescription. She then came in with worsening chest tightness, shortness of breath. In the ER, she was found to be hypoxic, wheezing throughout lung batres. She did improve initially with Solu-Medrol and aerosol treatments. Therefore, she was admitted to a monitored bed. When she was brought to the floor, she started coughing, was having severe bronchospasms, wheezing, could not catch her breath, and her chest was tight. I came in to see her; she was getting more and more lethargic. She was placed on 6 L nasal cannula, only oxygenating approximately 96%. Her aerosol treatments were switched to Xopenex due to headache from the albuterol. I was concerned about her level of consciousness and her increasing fatigue, consulted clerical support; nurse practitioner came up to see her, agreed to transfer her down to the intensive care unit. She was placed on high-flow oxygen, steroids were continued. She did not require intubation. She was placed on IV steroids, aerosols. She did well throughout her hospital course. The following day, she was on room air, oxygenating well. She was transferred to the floor, continued to improve, and at the time of discharge she was stable, oxygenating approximately 96% on room air, and was discharged home in stable condition with the above-mentioned instructions. Stefani Iverson MD [id number] [facility] File#: [id number] [facility] PATIENT NAME: [facility] MEDICAL REC #: [id number] [place] [address] ADMIT DATE: 03/05/19 DISCHARGE DATE: 03/07/19 DISCHARGE SUMMARY ATTENDING PHY: Stefani Iverson MD Verified/Reviewed by 03/11/[address] [facility] PATIENT NAME: [facility] MEDICAL REC #: [id number] [place] [address] ADMIT DATE: 03/05/19 DISCHARGE DATE: 03/07/19 DISCHARGE SUMMARY ATTENDING PHY: Stefani Iverson MD [facility] 03-05-2019 EMERGENCY PHYSICIAN REPORT This is a preliminary report only, as the practitioner review and authentication has not occurred. [facility] ER PHYSICIAN ASSESSMENT RECORDS : FlexChartData Event Time: 03/05/2019 14:10 Status: Signed [facility] Estrella Vick [[id number]] Attending Physician 1995 Chart (V2b) Chart created at 03/05/2019 14:03 by Suman Sellers Chart closed at 03/05/2019 17:05 Entry in Emergency Department at 03/05/2019 13:30 Patient Name: Estrella Vick Record Number: [id number] Date: 03/05/2019 14:03 Entered Department at: 03/05/2019 13:30 Patient Seen at: 03/05/2019 13:35 Decision to Admit at: 03/05/2019 17:00 PCP: Stefani Iverson Chief Complaint:PATIENT STATES ASTHMA EXACERBATION THAT STARTED YESTERDAY. PATIENT STATES, I CANT CATCH MY BREATH. Triage Note reviewed and Initial Vital Signs reviewed. Pulse: 124. Respiratory Rate: 24. Blood-pressure: 157/80. Oxygen Saturation: 96%. History of Present Illness: This is a 24-year-old female with a history of asthma presents by EMS from [facility] with an acute exacerbate exacerbation. Patient has never been admitted to the ICU or intubated for asthma although her last exacerbation was in October this year. She has had some seasonal allergy versus URI type symptoms over the past several days. She has developed an asthma exacerbation. A lot of difficulty breathing over [facility] PATIENT NAME: ESTRELLA VICK [address] MEDICAL REC #: [id number] [place] [address] EMERGENCY DEPARTMENT REPORT EMERGENCY DEPARTMENT PHYSICIAN the last day. She has had wheezing. Slight dry cough. Denies fevers. No chest pain. History of what sounds like pneumomediastinum in the past. Did not have improvement with home bronchodilator therapy and presented to [facility] where she was noted to have a sat of 90. Increased work of breathing. Was given bronchodilator therapy, intramuscular Solu-Medrol, and oral prednisone. Was transferred by EMS. She has had slight improvement of her symptoms. No other acute complaints. Review of Systems. All other systems reviewed and negative.. Past History, Medications, Allergies, Social History and Family History reviewed in nurses note. Medications: Reviewed RN Note. Allergies: Reviewed RN Note No Known Allergies No Known Allergies Social History: Reviewed RN Note. Family History: Reviewed RN Note Physical Examination: General: Alert; Pleasant, does not appear systemically ill. Mild increased work of breathing HEENT: Normal ENT inspection. Head: Atraumatic. Eyes: PERRL; . Oropharynx / Throat: Moist mucous membranes. Neck: Supple Respiratory: Tachypneic. Inspiratory and expiratory wheezes. Fair respiratory excursion. Cardio-Vascular: Tachycardic with a regular rhythm Abdomen: Non-tender and Soft Extremity: No Calf Tenderness, No edema and Normal Equal pulses Neurological: Alert, Oriented X3 and No Gross Weakness Skin: Warm and Dry Psychological: Mood/Affect Normal BMP, information as of 03/05/2019, 1:56 pm 139 --------+--------+--------andlt; 152* Anion Gap = 8 4.0 BUN/CREA: 13; CALCIUM TOTAL: 8.6 Mg/Dl [facility] PATIENT NAME: ESTRELLA VICK [address] [facility] [address] [place] MEDICAL REC #: [id number] [place] [address] EMERGENCY DEPARTMENT REPORT EMERGENCY DEPARTMENT PHYSICIAN MAGNESIUM, information as of 03/05/2019, 1:56 pm M.1 Medical Decision Making Patient was seen and examined. IV established. Continues bronchodilator therapy administered. I also administered IV magnesium via drip. I did review her x-ray from the outside facility which was negative for pneumothorax, pneumonia, or CHF. She did receive steroids at the [facility] facility. She was reassessed multiple times. She had gradual steady improvement of her symptoms to the point which she appeared relatively comfortable at the time of disposition. We got her up and ambulated her on continuous pulse oximetry and she developed some recurrent mild respiratory distress with inspiratory and expiratory wheezing. This point she will require admission to the hospital. She is receiving additional nebs at this time. I discussed case with her PCP, Dr. Iverson who will admit this patient to telemetry bed. Additional Information: Old records reviewed ([facility] negative for pneumonia, pneumothorax, or CHF). Additional History from EMS. Discussed Results, Diagnosis and Follow-Up with Patient and Family. Clinical Impression: 1. Acute asthma exacerbation Critical Care Time: 35 minutes, excluding billable procedures. The high probability of sudden, clinically significant, or life-threatening deterioration required my full and direct attention, intervention and personal management while the patient was critical. I provided critical care services including: Interpreting diagnostic studies; Medication orders and management; Vital sign assessment monitoring and review; Re-evaluation; Obtaining additional history from family / physician / EMS; Documentation time; Chart data review. The aggregate critical time was 35 minutes in direct care for this patient either at the bedside or elsewhere in the Emergency Department. This [facility] PATIENT NAME: ESTRELLA VICK [address] MEDICAL REC #: [id number] [place] [address] EMERGENCY DEPARTMENT REPORT EMERGENCY DEPARTMENT PHYSICIAN time is in addition to time spent performing other reported procedures. MSE completed. I was the primary ED attending.. Patient transported to ED by EMS with medical direction by SCEP physician (not applicable for EMT squads) .. 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 PATIENT NAME: PHILLIPARNAUDESTRELLA Dagoberto [address] MEDICAL REC #: [id number] [place] [address] EMERGENCY DEPARTMENT REPORT EMERGENCY DEPARTMENT PHYSICIAN Priority: 3 - Urgent Complaint: Asthma Stated Complaint: PATIENT STATES ASTHMA EXACERBATION THAT STARTED YESTERDAY. PATIENT STATES, I CANT CATCH MY BREATH. Arrival Date: 03/05/2019 13:30 Triage Date: 03/05/2019 13:31 Mode of Arrival: Ambulance WC: N Language: Georgian Transport: [facility] BED C26 In: 03/05/2019 13:34:51 03/05/2019 13:34:51 SLV C26 (Removed From) Out: 03/05/2019 17:50:07 03/05/2019 17:50:07 [facility] PROVIDERS Emergency Medical Service Provider Contact: 03/05/2019 13:31:18 EMS End: MD Suman Sellers Provider Contact: 03/05/2019 13:35:08 TLS End: Truman Nieves Provider Contact: 03/05/2019 13:35:34 SLV End: TRIAGE HISTORY ALLERGIES Allergic To: No Known Allergies 03/05/2019 13:47 SLV ILLNESS Illness: Asthma 03/05/2019 13:[address] [facility] PATIENT NAME: LEWISRODRIMARK LARESGAIL Dagoberto [address] MEDICAL REC #: [id number] [place] [address] EMERGENCY DEPARTMENT REPORT EMERGENCY DEPARTMENT PHYSICIAN PAST SURGERY HIST Surgery: None 03/05/2019 13:47 SLV PAST SOCIAL HIST Social History: Behavior age appropriate 03/05/2019 13:47 SLV Social History: Communicates without difficulty 03/05/2019 13:47 SLV Social History: Lives with family or significant other 03/05/2019 13:47 SLV Social History: Smoker-None 03/05/2019 13:47 SLV Social History: Recreational Drugs - None 03/05/2019 13:47 SLV Social History: Alcohol - Occasional-1 MONTH 03/05/2019 13:47 SLV Social History: Denies Domestic Violence 03/05/2019 13:47 SLV Social History: Denies thoughts of self harm. 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 Pt HR 140s. Pt peak flow less than 50% of predicted. Pathway calls for 5mg Albuterol. Proceed [facility] PATIENT NAME: ESTRELLA VICK [address] [place] MEDICAL REC #: [id number] [place] [address] EMERGENCY DEPARTMENT REPORT EMERGENCY DEPARTMENT PHYSICIAN to do 2.5 mg normal dose at this time. Pt given Atrovent and 2.5 mg x 2 first. Will wait for 20 mins and give the third Albuterol. Pre Treatment Auscultation:inspiratory and expiratory wheezing: Pre Treatment Vital Signs:respiratory rate pre treatment: heart rate pre treatment: Note:hr 140 rr 24 Small Volume Nebulizer Treatment:SVN given with mouthpiece Post Treatment Auscultation:expiratory wheeze: Post Treatment Vital Signs:heart rate post treatment: Note:hr 135 Respiratory Treatment : Respiratory Therapy Treatment Event Time: 03/05/2019 14:00 JAR Therapy:Aerosol: Albuterol 2.5mg Respiratory Treatment : Respiratory Therapy Treatment Event Time: 03/05/2019 14:18 JAR Therapy:Aerosol: Albuterol 2.5mg Pre Treatment Vital Signs:respiratory rate pre treatment: heart rate pre treatment: Note:HR 122 RR 20 Small Volume Nebulizer Treatment:SVN given with mouthpiece Post Treatment Auscultation:Note:Improved aeration bilat. Slight EEW noted otherwise rather clear Post Treatment Vital Signs:heart rate post treatment: Note:hr 122 Respiratory Treatment : Respiratory Therapy Treatment Event Time: 03/05/2019 16:49 JEMA Therapy:Aerosol: Albuterol 2.5mg Normal Saline 2.5cc Pre Treatment Auscultation:inspiratory and expiratory wheezing: diffuse Pre Treatment Vital Signs:heart rate pre treatment: 124respiratory rate pre treatment: 2794% POX Small Volume Nebulizer Treatment:SVN given with mouthpiece Patient encouraged to cough/deep breath Cough Effect:moderate Sputum Amount:none Respiratory Treatment : Respiratory Therapy Treatment Event Time: 03/05/2019 17:00 JEMA Therapy:Aerosol: Albuterol 2.5mg Normal Saline 2.5cc Pre Treatment Auscultation:inspiratory and expiratory wheezing: diffuse [facility] PATIENT NAME: ESTRELLA VICK [address] MEDICAL REC #: [id number] [place] [address] EMERGENCY DEPARTMENT REPORT EMERGENCY DEPARTMENT PHYSICIAN Pre Treatment Vital Signs:heart rate pre treatment: 141respiratory rate pre treatment: 2595% POX Small Volume Nebulizer Treatment:SVN given with mouthpiece Respiratory Treatment : Respiratory Therapy Treatment Event Time: 03/05/2019 17:12 JEMA Therapy:Aerosol: Albuterol 2.5mg Normal Saline 2.5cc Pre Treatment Auscultation:inspiratory and expiratory wheezing: diffuse Pre Treatment Vital Signs:heart rate pre treatment: 135respiratory rate pre treatment: 1896% POX Small Volume Nebulizer Treatment:SVN given with mouthpiece ASSESSMENT NOTES 03/05/2019 13:40 PATIENT ALERT AND ORIENTED. PATIENT STATES ASTHMA EXACERBATION THAT STARTED YESTERDAY. PT STATES I CANT CATCH MY BREATH. PATIENT ABLE TO MOVE EXTREMITIES WITHOUT DIFFICULTY. PERIPHERAL PULSES PRESNET. SKIN IS PINK WARM AND DRY. RESPERS EASY AND NON LABORED. LUNGS ARE WHEEZING UPON INSPIRATION. MSPS INTACT AND CAP REFILL LESS THAN 3 SECONDS. CALL LIGHT IN REACH. 03/05/2019 13:41 SLV 03/05/2019 16:39 patient ambulate with assistance. patient was able to bear weight by self. pt denied dizziness during ambulation. patients heart rate was 122 and maintained o2 saturation of 94% on room air. patient was assisted back to bed. 03/05/2019 16:41 SLV TREATMENT 03/05/2019 13:38 Staff/ Patient Interaction - Introduced self and assessed patients needs. 03/05/2019 13:39 SLV 03/05/2019 13:38 Staff/ Patient Interaction - Call light placed within reach. 03/05/2019 13:39 SLV 03/05/2019 13:38 Cardiac - conveyor monitor initiated. 03/05/2019 13:39 SLV 03/05/2019 13:39 Cardiac - conveyor monitor interpretation TACHY . [facility] PATIENT NAME: ESTRELLA VICK [facility] [address] MEDICAL REC #: [id number] [place] [address] EMERGENCY DEPARTMENT REPORT EMERGENCY DEPARTMENT PHYSICIAN 03/05/2019 13:39 SLV 03/05/2019 13:39 Primary DOC Guide - A. 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 Fall Risk Assessment (Age andlt;65) 03/05/2019 13:39 SLV History of Falling in last 3 months? No (0) Confusion or Disorientation? No (0) Intoxicated or Sedated? No (0) Impaired Gait? No (0) Mobility Assist Device Used? No (0) Altered Elimination? No (0) Fall Risk Score 1-2 Points = Low Risk. 3-4 Points = Moderate Risk. 5 or more points = High Risk. 0 Fall Score Greater andgt;= 3? No 03/05/2019 13:39 Primary DOC Guide - D. Psychosocial Assessment 03/05/2019 13:39 SLV Over the Last 2 weeks, how often have you had little interest or pleasure in doing things (0) Not at All Is Psychosocial Assessment Score 3 or more? If score is 3 or more please consult ED Navigator! No Total Psychosocial Assessment Score 0 Over the last 2 weeks, how often have you been feeling down, depressed or hopeless (0) Not at All 03/05/2019 13:39 Primary DOC Guide - E. Family Violence Assessment 03/05/2019 13:39 SLV Within the past year, has anyone ever pushed, shoved, slapped, choked, hit, punched or kicked you: No Within the past year, has anyone ever pressured or forced you to have sexual activities when you did not want to: No Do you feel safe and well cared for: Yes [facility] PATIENT NAME: ESTRELLA VICK [address] [facility] [address] MEDICAL REC #: [id number] [place] [id number] EMERGENCY DEPARTMENT REPORT EMERGENCY DEPARTMENT PHYSICIAN Is there a partner from a previous or current relationship that is making you feel unsafe now: No 03/05/2019 16:50 Physician Call - called at [phone] 03/05/2019 16:51 DOTTY 03/05/2019 16:53 Physician Call - answered at [phone] 03/05/2019 16:54 KEVON 03/05/2019 17:34 Physician Call - answered at [phone] 03/05/2019 17:35 JLMB MEDICATIONS IV IV Fluid: B 03/05/2019 14:14 03/05/2019 14:15 SLV Line #: 1 Rate: ml/hr Location: antecubital fossa left Ndl Gauge: 22 # Attempts: 1 Notes: flushes/aspirates without difficulty. IV Fluid: S 03/05/2019 14:15 03/05/2019 14:15 SLV Line #: 1 Fluid: 0.9% NS 1000cc bag Rate: ml/hr 999 Location: antecubital fossa left Ndl Gauge: 22 # Attempts: 1 I AND O VITALS VS-ROUTINE Time: 03/05/2019 13:35 B/P: 157/80 - Left Upper Arm - Lying - Machine Pulse: 124 - Monitor Resp: 24 Sa02: 96 Room Air 03/05/2019 13:36 SLV VS-Pain Time: 03/05/2019 13:35 Pain Level: 5 03/05/2019 13:36 SLV VS-GCS Time: 03/05/2019 13:35 Visual: 4 Verbal: 5 Motor: 6 GCS Total: 03/05/2019 13:[address] [facility] PATIENT NAME: [facility] MEDICAL REC #: [id number] [place] [address] EMERGENCY DEPARTMENT REPORT EMERGENCY DEPARTMENT PHYSICIAN VS-HT/WT Time: 03/05/2019 13:35 Ht: 65 in. Stated Weight: 120 lbs Stated 03/05/2019 13:36 SLV VS-Visual Time: 03/05/2019 13:35 03/05/2019 13:36 SLV VS-FHT Time: 03/05/2019 13:35 03/05/2019 13:36 SLV VS-Notes Time: 03/05/2019 13:35 MAP - 109 03/05/2019 13:36 SLV VS-ROUTINE Time: 03/05/2019 15:31 B/P: 108/59 - Right Upper Arm - Lying - Machine Pulse: 111 - Monitor Resp: 18 Sa02: 97 Room Air 03/05/2019 15:31 SLV VS-Pain Time: 03/05/2019 15:31 03/05/2019 15:31 SLV VS-GCS Time: 03/05/2019 15:31 Visual: 4 Verbal: 5 Motor: 6 GCS Total: 15 03/05/2019 15:31 SLV VS-HT/WT Time: 03/05/2019 15:31 03/05/2019 15:31 SLV VS-Visual Time: 03/05/2019 15:31 03/05/2019 15:31 SLV VS-FHT Time: 03/05/2019 15:31 03/05/2019 15:31 SLV VS-Notes Time: 03/05/2019 15:31 map - 78 03/05/2019 15:31 SLV VS-ROUTINE Time: 03/05/2019 17:34 Temp: 98.10 F - Oral 03/05/2019 17:34 SLV VS-Pain Time: 03/05/2019 17:34 03/05/2019 17:34 SLV VS-GCS Time: 03/05/2019 17:34 03/05/2019 17:34 SLV VS-HT/WT Time: 03/05/2019 17:34 03/05/2019 17:34 SLV VS-Visual Time: 03/05/2019 17:34 03/05/2019 17:34 SLV VS-FHT Time: 03/05/2019 17:34 03/05/2019 17:34 SLV VS-Notes Time: 03/05/2019 17:34 03/05/2019 17:34 SLV ORDERS Admit patient 03/05/2019 17:01 N/A Ordered: 03/05/2019 17:00 By . Other Reviewed: 03/05/2019 17:01 By . Other Albuterol aerosol 2.5mg continuous x 3 03/05/2019 16:54 N/A Ordered: 03/05/2019 16:46 By Suman Sellers Completed Time: 03/05/2019 16:[address] [facility] PATIENT NAME: ESTRELLA VICK0 [facility] [address] [facility] MEDICAL REC #: [id number] [place] [address] EMERGENCY DEPARTMENT REPORT EMERGENCY DEPARTMENT PHYSICIAN *Other Nurse: ambulate with contin pulse ox 03/05/2019 16:39 N/A Ordered: 03/05/2019 16:11 By Suman Sellers Completed Time: 03/05/2019 16:39 By Suman Sellers *Repeat vitals and re-assess 03/05/2019 15:31 N/A Ordered: 03/05/2019 15:17 By Suman Sellers Completed Time: 03/05/2019 15:31 By Suman Sellers APPRAISER REAL ESTATE ORDER: GFRP 03/05/2019 14:26 None Ordered: 03/05/2019 14:26 Completed Time: 03/05/2019 14:26 Results Time: 03/05/2019 14:25 IV NS bolus 1L over 60 min 03/05/2019 14:15 N/A Ordered: 03/05/2019 13:35 By Suman Sellers Completed Time: 03/05/2019 14:15 By Suman Sellers Noted Time: 03/05/2019 13:56 SLV conveyor monitor 03/05/2019 14:15 N/A Ordered: 03/05/2019 13:35 By Suman Sellers Completed Time: 03/05/2019 14:15 By Suman Sellers Noted Time: 03/05/2019 13:36 SLV Magnesium level 03/05/2019 14:26 N/A Ordered: 03/05/2019 13:35 By Suman Sellers Completed Time: 03/05/2019 14:26 By Suman Sellers Noted Time: 03/05/2019 13:57 SLV Results Time: 03/05/2019 14:25 BMP 03/05/2019 14:26 N/A Ordered: 03/05/2019 13:35 By Suman Sellers Completed Time: 03/05/2019 14:26 By Suman Sellers Noted Time: 03/05/2019 13:56 SLV Results Time: 03/05/2019 14:25 Magnesium (IV)*(2gm/50mL) DOSE: 2 gm over 20 mins bronchospasm adult IV 03/05/2019 14:14 [facility] PATIENT NAME: ESTRELLA VICK [facility] [address] [facility] MEDICAL REC #: [id number] [place] [address] EMERGENCY DEPARTMENT REPORT EMERGENCY DEPARTMENT PHYSICIAN N/A Ordered: 03/05/2019 13:35 By Suman Sellers Completed Time: 03/05/2019 14:14 By Suman Sellers Noted Time: 03/05/2019 13:59 SLV Asthma pathway - adult 03/05/2019 14:30 N/A Ordered: 03/05/2019 13:35 By Suman Sellers Completed Time: 03/05/2019 14:30 By Suman Sellers DISCHARGE Diagnosis: Acute asthma exacerbation 03/05/2019 17:19 CANCELLED DIAGNOSES Diagnosis Name: Acute asthma exacerbation Disposition: Time: 03/05/2019 17:19 Discharge Time: 03/05/2019 17:50 Type: Admission Condition: Stable for admission/discharge/transfer after emergency evaluation/treatment Category: *NOT APPLICABLE Referral: 03/05/2019 17:00 Admit To: *Bed Type - Telemetry Admit Physician: Stefani Iverson PRESCRIPTIONS CHARGES 0.9% NS 1000cc bag QTY @ 1 03/05/2019 14:15 SLV Auto Generated Charge SIGNATURE Adarsh Stovall DIGITAL COMMENTATORClarence Nieves SLV CHRISTINA STERLING DIGITAL COMMENTATORClarence CROWLEY [facility] PATIENT NAME: ESTRELLA VICK [address] [facility] [address] MEDICAL REC #: [id number] [place] [address] EMERGENCY DEPARTMENT REPORT EMERGENCY DEPARTMENT PHYSICIAN [facility] PATIENT NAME: ESTRELLA VICK [address] [place] [address] Dr. Bang MEDICAL REC #: [id number] [place] [address] EMERGENCY DEPARTMENT REPORT EMERGENCY DEPARTMENT PHYSICIAN [facility] GFR ESTon 03-05-2019 IF AMER Greater than 60 [facility] Comment on above: Order Comment: [place]: M Performed By: #### L 500.78152, L500.28019, L500.42563, L500.77874, L500.16724, L500.59286 #### [facility] [address] [place] [address] IF non-AFR AMER Greater than 60 [facility] Comment on above: Order Comment: [place]: M Performed By: #### L 500.42232, L500.10533, L500.77749, L500.39217, L500.08623, L500.07035 #### [facility] [address] [place] [address]# [phone] on 03-05-2019 HISTORY AND PHYSICAL [facility] CHIEF COMPLAINT: Peri rtness of breath. HISTORY OF PRESENTING COMPLAINT: Estrella is a 24-year-old very pleasant female with history of asthma, who presents with increasing shortness of breath and chest tightness. Her symptoms began over the weekend on Monday where she felt like she was having a hard time catching her breath. She never had any fevers or chills, no nausea or vomiting. She did go to [facility] on Monday. She was given breathing treatment and she was given a prescription for prednisone, although she did not fill it because she did not realize what it was. Then, over the past 24-48 hours, her breathing got worse again. She went to [facility], but due to her low oxygen saturation, she was sent to the emergency room. Here in the ER, she was seen by the emergency room physician. She had expiratory wheezes throughout her lung batres. She was given steroids, as well as aerosols. She did clear up for a little bit, but then had a coughing spell which sent her back into bronchospasms. Therefore, she has been admitted for further treatment and evaluation. She was given albuterol, unfortunately caused a headache; therefore, it was switched to Xopenex. She has been given 120 mg of IV Solu-Medrol in the ER and then was given 40 mg of IV Solu-Medrol here on the floor. She has also been given 2 g of magnesium so far. On examination, she appears tired, using her accessory muscles to breathe. She is able to talk. Complains of chest tightness, specifically in the anterior aspect of her chest. She has a hard time getting comfortable. She also feels very tired. Her headache has improved. She denies any nausea, vomiting. Denies any fevers or chills. PAST MEDICAL HISTORY: Significant for asthma. The last time she had an exacerbation similar to this was 3 years ago. She has never been intubated. MEDICATION: Microgestin control pills. SOCIAL HISTORY: She does not smoke. 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 FAMILY HISTORY: Noncontributory. PHYSICAL EXAMINATION: General: She is awake. She is alert. She is clearly in distress. Vital Signs: Temperature is 97.9, pulse is 120, pulse oximetry anywhere between 93% and 95%, blood pressure 106/52. HEENT: Unremarkable. Cardiovascular: Tachycardic. Lungs: Bilateral expiratory wheezes with limited air entry. Abdomen: Soft, nontender. Extremities: No edema. LABORATORY DATA: Sodium 139, potassium 4, BUN 9, creatinine 0.690, magnesium 2.1. Chest x-ray shows no evidence of pneumonia. [facility] PATIENT NAME: ESTRELLA VICK [address] [facility] [address] MEDICAL REC #: [id number] [place] [address] ADMIT DATE: 03/05/19 DISCHARGE DATE: HISTORY and PHYSICAL ATTENDING PHY: Stefani Iverson MD IMPRESSION: 1. Acute asthma exacerbation with bronchospasms. 2. Respiratory failure. PLAN: She was initially admitted to a monitored bed. I came in to see the patient. She looks very tired. I did speak with nurse practitioner from the clerical support group, who came up and saw her and agrees that she should be transferred down to intensive care unit. She will be given another 2 g of magnesium. She will be given some more Xopenex. Will continue her Solu-Medrol 40 mg IV every 6. I did discuss with the patient as well as her mother the concerns regarding breathing, and they understand. Hopefully, she will not be intubated, but this may be a possibility. Stefani Iverson MD [id number] [facility] File#: [id number] Verified/Reviewed by 03/06/[address] [facility] PATIENT NAME: ESTRELLA VICK [address] [facility] [address] MEDICAL REC #: [id number] [place] [address] ADMIT DATE: 03/05/19 DISCHARGE DATE: HISTORY and PHYSICAL ATTENDING PHY: Stefani Iverson MD Normal [facility] MAGNESIUMon 03-05-2019 Magnesium mass conc 2.1 mg/dL Normal 1.6-2.6 [facility] Comment on above: Order Comment: [place]: M Performed By: #### L 500.54451, L500.93183, L500.12207, L500.58167, L500.45412, L500.40786 #### [facility] [address] [phone] [facility] 03-05-2019 [facility] DATE OF SERVICE: 04/2019 HISTORY OF PRESENT ILLNESS: A 24-year-old white female with acute asthma exacerbation. She states she is wheezing and just kind of worsened so much more today. To note is that a few days ago she was seen by Dr. Jones and was given prednisone and cough medicine, but she did not know she was given prednisone, so she failed to go get it. ALLERGIES: None. MEDICATIONS: 1. Albuterol inhaler. 2. control pills. PAST MEDICAL HISTORY: History of asthma. SOCIAL HISTORY: Occasional alcohol. FAMILY HISTORY: Negative. REVIEW OF SYSTEMS: See history of present illness. PHYSICAL EXAMINATION: Blood pressure 90/62, pulse 110, respirations 20, temperature afebrile, pulse oximetry 92%. On exam, she is tight when I auscultate her lungs. She has pretty tight wheezes throughout, not moving air very well. So, we gave her an albuterol aerosol right away. Afterwards, she was moving air just a little bit better, so we repeated with a second one. She was having a hard time doing it. She could not feel her lips. She did not even finish the second one, says it was making her nauseated so we had to stop. We gave her Solu-Medrol 125 mg IM and prednisone 40 mg p.o. and a chest x-ray as read by me revealed no acute process. No pneumothorax, which she has had in the past. So, after all this, I listened to her lungs, her pulse oximetry was 91, and she was still very tight. IMPRESSION AND PLAN: Acute exacerbation of asthma. We got the squad to transport her because she is just not turning around. She is very tight, so the squad will take her to [facility] now for further evaluation and treatment. The paramedics put some oxygen on her before they left, advised to kind of just help her breathe a little bit more, get her oxygenation up. She will go immediately there per squad for further evaluation and treatment. Angelica Neumann MD /[id number] [facility] PATIENT NAME: [facility] [address] [facility] MEDICAL REC #: [id number] [place] [address] [facility] REPORT [facility]IC[facility] File#: [id number] Verified/Reviewed by 03/19/[address] [facility] PATIENT NAME: ESTRELLA VICK [facility] [address] MEDICAL REC #: [id number] [place] [address] [facility] REPORT [facility] PHYSIC[facility] REPORT [facility] 03-03-2019 [facility] RE[facility] DATE OF SERVICE: 02/2019 CHIEF COMPLAINT: Sore throat. SUBJECTIVE: A 24-year-old female presents with sore throat, cough, nasal congestion going on for a day. No other complaint. DRUG ALLERGIES: None. MEDICATIONS: Patient is on: 1. control. 2. Zyrtec. 3. Flonase. 4. Albuterol. PHYSICAL EXAMINATION: Blood pressure is 127/60. Pulse 100. Respirations 16. Temperature is 98. Pulse oximetry 98%. Pain 6/10. HEENT: Tympanic membranes bilaterally are clear. Lungs: A few scattered expiratory wheezes. Heart: S1, S2, regular rate and rhythm. ASSESSMENT: 1. Acute asthmatic attack. 2. Acute viral upper respiratory infection. PLAN: Discussed with the patient treatments and plan. I gave her Bromfed DM 2 teaspoons p.o. 4 times a day. I placed patient on prednisone. I will have patient follow up as needed. Christian Jones MD TD/[id number] [facility] File#: [id number] Verified/Reviewed by 03/22/[address] [facility] PATIENT NAME: ESTRELLA VICK [facility] [address] [facility] MEDICAL REC #: [id number] [place] [address] [facility] RE[facility]IC[facility] Normal [facility] CHEST PA/AP AND LATERALon CHEST PA/AP AND LATERAL CHEST PA/AP & LATERAL Ordering Physician: Christian Jones MD 11/27/2018 2:47 PM CHEST Clinical Statement: Cough FINDINGS: PA and lateral chest images were obtained. There were no prior studies available for comparison. The heart is normal in size. The costophrenic angles are clear. There is a small consolidated infiltrate in the right middle lobe. The left lung is clear. The mediastinum is unremarkable. IMPRESSION: Small consolidated right middle lobe infiltrate. Continued follow-up is suggested. ---- Electronic Signature on File ---- Signed By: Gabriela Jean MD FACR [email or web address] Dictated: 11/27/2018 3:07 PM Signed: 11/27/2018 3:08 PM Reported By: GABRIELA JEAN M.D. Signed By: GABRIELA JEAN M.D. Normal [facility] PCR GC AND CHLAMon 8 PCR CHLAMYDIA NOT DETECTED Normal NOT DETECTD [facility] Comment on above: Performed By: #### L770.59291 #### [facility] [address] [place] [address] PCR GONORRHOEAE NOT DETECTED Normal NOT DETECTD [facility] Comment on above: Performed By: #### L770.98851 #### [facility] [address] [place] [address] Vital Signs Date Time Vital Sign Value Performing Clinician Faci mckay 09-14-2024 20:14-0500 Heart rate 80 /min James Schaal LIFE UNDERWRITER.BILINGUAL OFFICE ASSISTANT Work Phone: [facility] 09-14-2024 20:14-0500 SaO2% (BldA) [Mass fraction] 94 % James Schaal LIFE UNDERWRITER.BILINGUAL OFFICE ASSISTANT Work Phone: [facility] 09-14-2024 19:44-0500 Body temperature 97.7 [degF] James Schaal LIFE UNDERWRITER.BILINGUAL OFFICE ASSISTANT Work Phone: [facility] 09-14-2024 19:44-0500 Diastolic blood pressure 83 mm[Hg] James Schaal LIFE UNDERWRITER.BILINGUAL OFFICE ASSISTANT Work Phone: [facility] 09-14-2024 19:44-0500 Respiratory rate 20 /min James Schaal LIFE UNDERWRITER.BILINGUAL OFFICE ASSISTANT Work Phone: [facility] 09-14-2024 19:44-0500 Systolic blood pressure 136 mm[Hg] James Schaal LIFE UNDERWRITER.BILINGUAL OFFICE ASSISTANT Work Phone: [facility] 08-16-2024 18:32-0400 Body temperature 98.01 [degF] Bridget Woodard PA-C Work Phone: [facility] 08-16-2024 18:32-0400 Body weight 63.5 kg Bridget Woodard PA-C Work Phone: [facility] 08-16-2024 18:32-0400 Diastolic blood pressure 83 mm[Hg] Bridget Woodard PA-C Work Phone: [facility] 08-16-2024 18:32-0400 Heart rate 100 /min Bridget Woodard PA-C Work Phone: [facility] 08-16-2024 18:32-0400 Respiratory rate 18 /min Bridget Woodard PA-C Work Phone: [facility] 08-16-2024 18:32-0400 SaO2% (BldA) [Mass fraction] 100 % Bridget Woodard PA-C Work Phone: [facility] 08-16-2024 18:32-0400 Systolic blood pressure 127 mm[Hg] Bridget Woodard PA-C Work Phone: [facility] 06-16-2022 10:10-0400 Body temperature 97.59 [degF] Angelica Neumann MD Work Phone: [facility] 06-16-2022 10:10-0400 Body weight 62.32 kg Angelica Neumann MD Work Phone: [facility] 06-16-2022 10:10-0400 Diastolic blood pressure 71 mm[Hg] Angelica Neumann MD Work Phone: [facility] 06-16-2022 10:10-0400 Heart rate 89 /min Angelica Neumann MD Work Phone: [facility] 06-16-2022 10:10-0400 Respiratory rate 18 /min Angelica Neumann MD Work Phone: [facility] 06-16-2022 10:10-0400 SaO2% (BldA) [Mass fraction] 98 % Angelica Neumann MD Work Phone: [facility] 06-16-2022 10:10-0400 Systolic blood pressure 110 mm[Hg] Angelica Neumann MD Work Phone: [facility] Encounters Encounter Date Encounter Type Care Provider Facility Start: 08-01-2025 ambulatory Christina Sy cility:[facility] Start: 02-08-2025 End: 02-08-2025 ambulatory STEFANI IVERSON Facility:[id number] Start: 02-08-2025 Encounter for genera l adult medical examination without abnormal findings [facility] Start: 09-14-2024 End: 09-14-2024 Office outpatient visit 25 minutes James Santiago APRN.BILINGUAL OFFICE ASSISTANT [facility] Comment on above: Moderate persistent asthma with (acute) exacerbation (Primary Dx); URI, acute; Eczema, unspecified type Start: 09-14-2024 End: 09-14-2024 ambulatory STEFANI IVERSON Facility:[id number] Start: 08-16-2024 End: 08-16-2024 ambulatory STEFANI IVERSON Facility:[id number] Start: 08-16-2024 End: 08-16-2024 Patient encounter procedure Bridget Woodard PA-C Work Phone: [facility] Comment on above: Sinobronchitis (Prim yolis Dx) Start: 07-06-2024 End: 07-10-2024 ambulatory SEAN CRUZ LIFE UNDERWRITER-BILINGUAL OFFICE ASSISTANT Facility:A Start: 07-06-2024 End: 07-06-2024 ambulatory STEFANI IVERSON MD Facility:A Start: 05-23-2024 End: 05-23-2024 ambulatory STEFANI IVERSON MD Facility:A Start: 06-17-2022 Telephone encounter Tab Hong MD Work Phone: [facility] Comment on above: Results Start: 06-16-2022 End: 06-16-2022 Office outpatient visit 15 minutes Angelica Neumann MD Work Phone: [facility] Comment on above: Congestion of both e ars (Primary Dx); URI, acute Procedures Date Procedure Procedure Detail Performing Clinician Start: 06-16-2022 Adult depression scr eening assessment Angelica Neumann MD Work Phone: Start: 06-14-2018 Cytopathology proced ure, preparation of smear, genital source Plan of Treatment Date Care Activity Detail Author Start: 12-15-2031 Urine microalbumin profile DTaP,Tdap,Td Vaccine (3 - Td or Tdap) [facility] Start: 06-30-2024 Covid-19 Vaccine () Covid-19 Vaccine () [facility] Start: 06-30-2024 Influenza vaccination Influenza Vacc ine (#1) [facility] Start: 06-16-2023 Adult depression screening assessment DEPRESSION SCREENING [facility] Start: 06-30-2022 Influenza vaccination INFLUENZA (#1) [facility] Start: 06-16-2022 End: 08-16-2022 Respiratory pathogens DNA and RNA 12b panel - Unspecified specimen by ALISHA with probe detection [facility] Work Phone: Comment on above: Expected: 06/16/2022 , Expires: 08/16/2022 Start: 06-29-2021 COVID-19 VACCINE (3 - Booster) COVID-19 VACCINE (3 - Booster) [facility] [facility] Start: 02-26-2016 PAP TESTING PAP TESTING [facility] Start: 02-26-2016 Screening for malign ant neoplasm of cervix Cervical Cancer Screening [facility] Start: 2014 Hepatitis B Vaccine (1 of 3 - 19+ 3-dose series) Hepatitis B Vaccine (1 of 3 - 19+ 3-dose series) [facility] Start: 2014 Urine microalbumin profile DTAP,TDAP,TD (1 - Tdap) [facility] Start: 2013 Anxiety Screening Anxiety Screening [facility] Start: 2013 Depression Screening Depression Scre ening [facility] Start: 2013 HEPATITIS C SCREENING HEPATITIS C [facility] Start: 2013 Hepatitis C screening Hepatitis C [facility] Start: 2013 HIV SCREENING HIV SCREENING [facility] Start: 2013 HIV screening HIV Screening [facility] Start: 1995 HEPATITIS B (1 of 3 - 3-dose series) HEPATITIS B (1 of 3 - 3-dose series) [facility] Removal impacted cer umen irrigation/lvg unilat AMBULATORY EAR LAVAGE/IRRIGATION Procedures Routine Congestion of both ears Ordered: 06/16/2022 [facility] Work Phone: Comment on above: Ordered: 06/16/2022 Payers Date Payer Category Payer Self-pay 2024 Unknown [id number] 2023 Medicaid [facility] MEDICAID [id number] 2023-Present [phone] [address] [place] [address] Medicaid [id number] 2023 Unknown [id number] 2022 Unknown [id number] 1995 Unknown [id number] 1995 Unknown [id number] 1995 Unknown [id number] Unknown [id number] Social History Date Type Detail Facility Start: 06-16-2022 Tobacco smoking stat us MEIS Never smoked tobacco [facility] Start: 06-16-2022 Tobacco use and exposure Smoke less tobacco non-user [facility] Start: 06-16-2022 End: 09-14-2024 Alcohol intake Lifetime non-drinker (finding) [facility] Start: 1995 Sex Assigned At Not on file C [facility] Start: 06-06-2022 End: 06-16-2022 Exposure to SARS-CoV-2 (event) Not sure [facility] Start: 10-20-2023 End: 08-16-2024 History of Social function [facility] Start: 10-20-2023 End: 08-16-2024 Tobacco use panel [facility] Adult Depression Screening Assessment 0 [facility] Start: 1995 Sex assigned at Female C [facility] Start: 09-14-2024 Gender identity Identifies as female gender (finding) [facility] Clinical Notes 06-16-2022 to 09-14-2024 Patient InstructionsJames Santiago APRN.BILINGUAL OFFICE ASSISTANT - 09/14/2024 8:23 PM Camille Stafford LPN - 09/14/2024 8:09 PM Camille Stafford LPN - 09/14/2024 8:00 PM ESTPatient Instructions Note Date & Type Note Facility 09-14-2024 Instructions James Santiago APRN.CNP - 09/14/2024 8:35 PM EST - Medications as prescribed. Start oral prednisone tomorrow. - Continue asthma medications as prescribed - Should you feel that you need 15 nebulizer treatments in a day, proceed to the emergency department. - Kenalog ointment to the eczematous area. Keep area moisturized. - Follow up in 3-5 days with PCP/Peditrician/Urgent Care for persistent symptoms, or to the Emergency Department for worsening or new onset of symptoms. [facility] PATIENT INFO ECZEMA OVERVIEW Atopic dermatitis, also known as eczema, is a skin problem that causes dry, itchy, scaly, red skin. It can occur in infants, children, and adults, and seems more common in certain families. Eczema can be treated with moisturizers and prescription ointments. ECZEMA CAUSES The cause of eczema is not completely understood, although hereditary factors appear to play a strong role. Atopic dermatitis is caused by dysfunction in the outermost layer of the skin (the epidermis). The epidermis is the first line of defense between the body and the environment. When the epidermis is intact, it keeps environmental irritants, allergens and microbes from entering the body. ECZEMA SYMPTOMS Intense itching of the skin, patches of redness, small bumps, and skin flaking are common. Scratching can cause additional skin inflammation, which can further worsen the itching. The itchiness may be more noticeable at nighttime. Features of eczema vary from one individual to another, and can foreign exchange clerk time. Although eczema is usually confined to specific areas of the body, it may affect multiple areas in severe cases: In children and adults, eczema commonly affects the back of the neck, the elbow creases, and the backs of the knees. Other affected areas may include the face, wrists, and forearms. The skin may become thickened and darkened, or even scarred, from repeated scratching. The skin can also become infected as a result of scratching. Signs of infection include painful red bumps that sometimes contain pus; a healthcare provider should be consulted if this occurs. Other findings in people with eczema can include: Dry, scaly skin Plugged hair follicles causing small bumps to develop, usually on the face, upper arms, and thighs Increased skin creasing on the palms and/or an extra fold of skin under the eye Darkening of the skin around the eyes ECZEMA DIAGNOSIS There is no specific test used to diagnose eczema. The diagnosis is usually based upon a person's medical history and physical examination. Factors that strongly suggest eczema include long-standing and recurrent itching, a personal or family history of allergic conditions, and an early age when symptoms began. Other factors include worsened symptoms after exposure to certain triggers or any of the skin findings noted above. ECZEMA TREATMENT Eczema is a chronic condition; it typically improves and then flares (worsens) periodically. Some people have no symptoms for several years. Eczema is not curable, although symptoms can be controlled with a variety of self-care measures and drug therapy. Eliminate aggravating factors -- Eliminating factors that worsen eczema can help to control the symptoms. Aggravating factors may include: Heat, perspiration, dry environments Emotional stress or anxiety Rapid temperature changes Exposure to certain chemicals or cleaning solutions, including soaps and detergents, perfumes and cosmetics, wool or synthetic fibers, dust, sand, and cigarette smoke. Keep the skin hydrated Emollients -- Emollients are creams and ointments that moisturize the skin and prevent it from drying out. The best emollients for people with atopic dermatitis are thick creams (such as Eucerin , Cetaphil , and Nutraderm ) or ointments (such as petroleum jelly, Aquaphor , and Vaseline ), which contain little to no water. Emollients are most effective when applied immediately after bathing. Lotions contain more water than creams and ointments and are less effective for moisturizing the skin. Bathing -- It is not clear if showers or baths are better for keeping the skin hydrated. Lukewarm baths or showers can hydrate and cool the skin, temporarily relieving the itching of eczema. An unscented, mild soap or nonsoap cleanser (such as Cetaphil ) should be used sparingly. An emollient should be applied IMMEDIATELY after bathing or showering to prevent the skin from drying out as a result of water evaporation. However, hot or long baths (greater than 10 to 15 minutes) and showers should be avoided since they can dry out the skin. In some cases, health care providers may recommend dilute bleach baths for people with eczema. These baths help to decrease the number of bacteria on the skin which can cause infections or worsen symptoms. To prepare a bleach bath, to cup of bleach is placed in a full bathtub (about 40 gallons) of water. Bleach baths are usually taken for five to ten minutes twice per week. Treat skin irritation Topical steroids -- Prescription steroid (corticosteroid) creams and ointments may be recommended to control mild to moderate atopic dermatitis. Steroid creams and ointments are available in a variety of strengths (potencies); the least potent are available without a prescription (eg, hydrocortisone 1% cream). More potent formulations require a prescription. Steroid creams or ointments are usually applied to the skin once or twice per day. These help to reduce symptoms and moisturize the skin. As the skin improves, a non-medicated emollient can be resumed. Strong topical steroids may be needed to control severe flares of eczema; however, these should be used for only short periods of time to prevent thinning of the skin. Other skin treatments -- Newer skin treatments for eczema include tacrolimus (Protopic ) and pimecrolimus (Elidel ). These are effective in controlling eczema, although they do not work as quickly as topical steroids. They are useful in sensitive areas such as the face and groin, and can be used in children over age two. Due to safety concerns, these treatments should only be used as instructed by a healthcare provider. Oral steroids -- Oral steroids (eg, prednisone) occasionally are used to treat a severe flare of eczema, although this treatment is not usually recommended on a regular basis because of potential side effects. Ultraviolet light therapy (phototherapy) -- Ultraviolet light therapy (phototherapy) can effectively control atopic dermatitis. However, this therapy is expensive, may increase a person's risk for skin cancer, and is therefore recommended only for people with severe eczema who do not respond to other treatments. Immunosuppressive drugs -- Drugs that weaken the immune system may be recommended for people with severe eczema who do not improve with other treatments. Treatment with these drugs can cause serious side effects, including an increased risk for infection. Control itching Oral antihistamines -- Oral antihistamines sometimes help relieve the itching of eczema. The qcra-dcd-vnytxgm antihistamine diphenhydramine (Benadryl ), and prescription antihistamines, such as hydroxyzine (Atarax ) and cyproheptadine, are most effective for itching caused by eczema, although these drugs can cause drowsiness. The nonsedating antihistamines such as cetirizine (Zyrtec ) and loratadine (Claritin ) may relieve symptoms, and both are available without a prescription in the [place]. Wet dressings -- Wet dressings help soothe the skin, reduce itching and redness, loosen crusted areas, and prevent skin injury from scratching. Dampened cotton garments may be worn over the affected area and covered with a dry garment. The person may wear these dressings overnight or change them every eight hours during the day. documented in this encounter [facility] 09-14-2024 Note HNO ID: [id number] Author: JAMES SANTIAGO APRN.MARIA ELENA Service: ? Author Type: Nurse Practitioner Type: Progress Notes Filed: 09/14/2024 21:04 Note Text: CC: Other (Asthma attack - Entered by patient) HPI: Estrella GONGORA is an 29 year old female, with known history of asthma, presenting with complaints of an asthma attack. She states that for the past 5 to 6 days, she has had nasal congestion and a cough. 3 days ago she started having some shortness of breath so she has been using her nebulizer. States today, her symptoms have become much worse and she feels like her lungs are very tight, with continued shortness of breath and wheezing. She states that she did about 15 nebulizer treatments with albuterol today. She takes daily asthmatic medications, but does not have an albuterol inhaler. States every time she gets a cold this happens with her asthma. She denies any fevers, sore throat, ear pain, chest pain, abdominal pain, vomiting or diarrhea. States that she has a known history of eczema. She is having a flare of her eczema. She states her right hand/fourth digit is very itchy and red. She has been applying Aquaphor which usually helps, but is not helping right now. Denies any drainage from the area. PAST MEDICAL HISTORY Diagnosis Date Asthma There is no problem list on file for this patient. ALLERGIES Allergen Reactions Animal Dander Other: See Comments Sneezing, asthma attack Seasonal Allergies Other: See Comments Sneezing, asthma attack Adhesive Rash Current Outpatient Medications Medication Sig Dispense Refill cetirizine (ZYRTEC) 10 mg tablet Take by mouth once daily. albuterol (PROVENTIL) 2.5 mg /3 mL (0.083 %) nebulizer solution albuterol HFA (PROVENTIL HFA, VENTOLIN HFA) 90 mcg/actuation inhaler q 6 HR. SYMBICORT 160-4.5 mcg/actuation inhaler Inhale 2 Puffs as instructed two times a day. montelukast (SINGULAIR) 10 mg tablet every evening. albuterol HFA (PROVENTIL HFA) 90 mcg/actuation inhaler Inhale 2 Puffs as instructed every 6 hours as needed. 1 Each 0 predniSONE (DELTASONE) 20 mg tablet 1 tab po tid x 3 days,1 tab po bid x 2 days, 1 tab po every day x 2 days, 1/2 tab po every day x 1 day 16 tablet 0 No current facility-administered medications for this visit. Social History Tobacco Use Smoking status: Never Smokeless tobacco: Never Vaping Use Vaping status: Never Used Substance Use Topics Alcohol use: Never Drug use: Never Alcohol Use: Never Tobacco Use: Never History reviewed. No pertinent family history. ROS: Unless otherwise stated in this report the patient's positive and negative responses for review of systems for constitutional, eyes, ENT, cardiovascular, respiratory, gastrointestinal, neurological, , musculoskeletal, and integument systems and related systems to the presenting problem are either stated in the history of present illness or were not pertinent or were negative for the symptoms and/or complaints related to the presenting medical problem. Positives and pertinent negatives as per HPI. All others reviewed and are negative. 09/14/24194309/14/242013 BP: 136/83 Pulse: 114 80 Resp: 20 Temp: 36.5 ?C (97.7 ?F) SpO2: 95% 94% Procedures Physical Exam: Physical Exam Vitals and nursing note reviewed. Constitutional: General: She is not in acute distress. Appearance: Normal appearance. She is not ill-appearing or toxic-appearing. HENT: Right Ear: Tympanic membrane, ear canal and external ear normal. Left Ear: Tympanic membrane, ear canal and external ear normal. Nose: Congestion and rhinorrhea present. Mouth/Throat: Lips: Sausal. Mouth: Mucous membranes are moist. Pharynx: Posterior oropharyngeal erythema present. No pharyngeal swelling, oropharyngeal exudate or uvula swelling. Tonsils: No tonsillar exudate or tonsillar abscesses. Cardiovascular: Rate and Rhythm: Normal rate and regular rhythm. Heart sounds: Normal heart sounds, S1 normal and S2 normal. No murmur heard. No friction rub. No gallop. Pulmonary: Effort: Pulmonary effort is normal. Tachypnea present. No accessory muscle usage, respiratory distress or retractions. Breath sounds: Decreased breath sounds and wheezing present. No rhonchi or rales. Abdominal: General: Abdomen is flat. Bowel sounds are normal. Tenderness: There is no abdominal tenderness. Skin: General: Skin is warm and dry. Capillary Refill: Capillary refill takes less than 2 seconds. Findings: Erythema and rash present. No abscess or petechiae. Rash is papular. Comments: Dry, scaly, erythematous papules with lichenification to right hand/fourth digit. No evidence of cellulitis or secondary infection. No abscesses. Neurological: Mental Status: She is alert. Mental status is at baseline. Psychiatric: Behavior: Behavior is cooperative. ASSESSMENT/PLAN: MDM Patient in no acute distress. No evidence of otitis media or strep pharyngitis. (more content not included)... [facility] 09-14-2024 History of Presen t illness Narrative CC: Other (Asthma attack - Entered by patient) HPI: Estrella GONGORA is an 29 year old female, with known history of asthma, presenting with complaints of an asthma attack. She states that for the past 5 to 6 days, she has had nasal congestion and a cough. 3 days ago she started having some shortness of breath so she has been using her nebulizer. States today, her symptoms have become much worse and she feels like her lungs are very tight, with continued shortness of breath and wheezing. She states that she did about 15 nebulizer treatments with albuterol today. She takes daily asthmatic medications, but does not have an albuterol inhaler. States every time she gets a cold this happens with her asthma. She denies any fevers, sore throat, ear pain, chest pain, abdominal pain, vomiting or diarrhea. States that she has a known history of eczema. She is having a flare of her eczema. She states her right hand/fourth digit is very itchy and red. She has been applying Aquaphor which usually helps, but is not helping right now. Denies any drainage from the area. PAST MEDICAL HISTORY Diagnosis Date Asthma There is no problem list on file for this patient. ALLERGIES Allergen Reactions Animal Dander Other: See Comments Sneezing, asthma attack Seasonal Allergies Other: See Comments Sneezing, asthma attack Adhesive Rash Current Outpatient Medications Medication Sig Dispense Refill cetirizine (ZYRTEC) 10 mg tablet Take by mouth once daily. albuterol (PROVENTIL) 2.5 mg /3 mL (0.083 %) nebulizer solution albuterol HFA (PROVENTIL HFA, VENTOLIN HFA) 90 mcg/actuation inhaler q 6 HR. SYMBICORT 160-4.5 mcg/actuation inhaler Inhale 2 Puffs as instructed two times a day. montelukast (SINGULAIR) 10 mg tablet every evening. albuterol HFA (PROVENTIL HFA) 90 mcg/actuation inhaler Inhale 2 Puffs as instructed every 6 hours as needed. 1 Each 0 predniSONE (DELTASONE) 20 mg tablet 1 tab po tid x 3 days,1 tab po bid x 2 days, 1 tab po every day x 2 days, 1/2 tab po every day x 1 day 16 tablet 0 No current facility-administered medications for this visit. Social History Tobacco Use Smoking status: Never Smokeless tobacco: Never Vaping Use Vaping status: Never Used Substance Use Topics Alcohol use: Never Drug use: Never Alcohol Use: Never Tobacco Use: Never History reviewed. No pertinent family history. ROS: Unless otherwise stated in this report the patient's positive and negative responses for review of systems for constitutional, eyes, ENT, cardiovascular, respiratory, gastrointestinal, neurological, , musculoskeletal, and integument systems and related systems to the presenting problem are either stated in the history of present illness or were not pertinent or were negative for the symptoms and/or complaints related to the presenting medical problem. Positives and pertinent negatives as per HPI. All others reviewed and are negative. 09/14/24194309/14/242013 BP: 136/83 Pulse: 114 80 Resp: 20 Temp: 36.5 C (97.7 F) SpO2: 95% 94% Procedures Physical Exam: Physical Exam Vitals and nursing note reviewed. Constitutional: General: She is not in acute distress. Appearance: Normal appearance. She is not ill-appearing or toxic-appearing. HENT: Right Ear: Tympanic membrane, ear canal and external ear normal. Left Ear: Tympanic membrane, ear canal and external ear normal. Nose: Congestion and rhinorrhea present. Mouth/Throat: Lips: Sausal. Mouth: Mucous membranes are moist. Pharynx: Posterior oropharyngeal erythema present. No pharyngeal swelling, oropharyngeal exudate or uvula swelling. Tonsils: No tonsillar exudate or tonsillar abscesses. Cardiovascular: Rate and Rhythm: Normal rate and regular rhythm. Heart sounds: Normal heart sounds, S1 normal and S2 normal. No murmur heard. No friction rub. No gallop. Pulmonary: Effort: Pulmonary effort is normal. Tachypnea present. No accessory muscle usage, respiratory distress or retractions. Breath sounds: Decreased breath sounds and wheezing present. No rhonchi or rales. Abdominal: General: Abdomen is flat. Bowel sounds are normal. Tenderness: There is no abdominal tenderness. Skin: General: Skin is warm and dry. Capillary Refill: Capillary refill takes less than 2 seconds. Findings: Erythema and rash present. No abscess or petechiae. Rash is papular. Comments: Dry, scaly, erythematous papules with lichenification to right hand/fourth digit. No evidence of cellulitis or secondary infection. No abscesses. Neurological: Mental Status: She is alert. Mental status is at baseline. Psychiatric: Behavior: Behavior is cooperative. ASSESSMENT/PLAN: MDM Patient in no acute distress. No evidence of otitis media or strep pharyngitis. No systemic symptoms. I do not suspect pneumonia or respiratory failure. Lungs with diminished breath sounds and wheezing. Likely URI exacerbating asthma. Patient slightly tachycardic likely due to multiple albuterol nebulizer treatments. Denies any chest pain. Scaly/erythematous rash on right hand/fourth digit. No abscess, drainage or cellulitis. It was mutually agreed that further testing or imaging is not necessary at this time. 125 methylprednisolone IM given here at the clinic and patient tolerated well. Ipratropium nebulizer treatment given and patient reported feeling much improved. Lungs were less tight and less wheezing as well. O2 sat stayed between 94 and 98% while here at the clinic. Based on the duration of symptoms, I will cover for underlying bacterial etiology. Plan: Z-Benigno sent to pharmacy for empirical treatment of bacterial URI. Prednisone and albuterol inhaler sent to pharmacy. Patient is to start prednisone tomorrow and she verbalized understanding. Triamcinolone ointment sent to pharmacy. Discussed skin care. Discussed URI symptom management, follow-up and red flag symptoms/ER precautions. Patient/Family agreed and understood the plan, and the patient was discharged in stable condition. 1. Moderate persistent asthma with (acute) exacerbation - ICD9: 493.92, ICD10: J45.41 (primary diagnosis) - Moderate persistent asthma improved and acute excacerbation without status and no respiratory distress - Continue current medications - Asthma Action Plan reviewed - METHYLPREDNISOLONE SOD SUCC (PF) 125 MG/2 ML SOLUTION FOR INJECTION - IPRATROPIUM BROMIDE 0.02 % SOLUTION FOR INHALATION - ALBUTEROL SULFATE HFA 90 MCG/ACTUATION AEROSOL INHALER 2. URI, acute - ICD9: 465.9, ICD10: J06.9 - Symptomatic treatment with prn analgesia - Supportive care with fluids and rest - AZITHROMYCIN 250 MG TABLET 3. Eczema, unspecified type - ICD9: 692.9, ICD10: L30.9 - Topical steriod tx with Rx for steriod cream/ointment- see orders - discussed skin care of rash - follow up if symptoms persist or worsen. - TRIAMCINOLONE ACETONIDE 0.025 % TOPICAL OINTMENT James Santiago APRN.BILINGUAL OFFICE ASSISTANT (I strongly encouraged follow-up with a physician in the specified timeframe recommended. We also discussed medications that were prescribed (if any) including common side effects and interactions. The patient was advised to abstain from driving, operating heavy machinery or making significant decisions while taking medications such as opiates and muscle relaxer's that may impair these abilities. Voice recognition software was used in the creation of this note for documentation purposes. All reasonable efforts were made to correct any errors, but some still may occur due to the nature of the software.) Solu medrol 125 mg IM administered to the right buttock. Patient tolerated fairly well. Camille Jones LPN Ipratropium 0.5 mg administered via nebulizer. Patient tolerated well. See intake record for repeat vitals. Camille Jones LPN documented in this encounter [facility] 09-14-2024 Note HNO ID: [id number] Author: CAMILLE JONES LPN Service: ? Author Type: LICENSED NURSE Type: Progress Notes Filed: 09/14/2024 21:04 Note Text: Solu medrol 125 mg IM administered to the right buttock. Patient tolerated fairly well. Camille Jones LPN [facility] 09-14-2024 Note HNO ID: [id number] Author: CAMILLE JONES LPN Service: ? Author Type: LICENSED NURSE Type: Progress Notes Filed: 09/14/2024 21:04 Note Text: Ipratropium 0.5 mg administered via nebulizer. Patient tolerated well. See intake record for repeat vitals. Camille Jones LPN [facility] 08-16-2024 Note HNO ID: [id number] Author: BRIDGET WOODARD PA-C Service: ? Author Type: Physician Special Officer Automat Type: Progress Notes Filed: 08/16/2024 18:43 Note Text: Estrella GONGORA is a 29 year old female who presents with Cough (Body aches, neck pain, nausea, ear pain, green phlegm /X 2 weeks) This is a 29-year-old female who presents with 2 weeks of nasal congestion and drainage, sinus pain and pressure, chest congestion, cough, body aches, fatigue. Taking ndme-fep-baqxyvl cough medication without much relief. She has felt like she is using her albuterol inhaler more frequently. Denies any dizziness, ear pain, stridor, drooling, chest pain, shortness of breath, vomiting or diarrhea, rash. The history is provided by the patient. Cough Associated symptoms include chills, weight loss and myalgias. Pertinent negatives include no chest pain, no ear pain, no sore throat and no eye redness. PAST MEDICAL HISTORY Diagnosis Date Asthma Current Outpatient Medications Medication Sig Dispense Refill cetirizine (ZYRTEC) 10 mg tablet Take by mouth. SYMBICORT 160-4.5 mcg/actuation inhaler montelukast (SINGULAIR) 10 mg tablet amoxicillin-clavulanate potassium (AUGMENTIN) 875-125 mg per tablet Take 1 tablet by mouth every 12 hours for 7 days. 14 tablet 0 predniSONE (DELTASONE) 10 mg tablet Take 1 tablet by mouth once daily. TAKE 40 MG (4tabs) FOR TWO DAYS, THEN 20 MG (2tabs) FOR TWO DAYS, THEN 10 MG (1tab) FOR TWO DAYS 14 tablet 0 Hqoganppvgmwhdq-Nletydlue-MQ (BROMFED DM) 2-30-10 mg/5 mL syrup Take 10 mL by mouth every 4 hours as needed (COUGH/CONGESTION) for up to 5 days. 300 mL 0 albuterol (PROVENTIL) 2.5 mg /3 mL (0.083 %) nebulizer solution albuterol HFA (PROVENTIL HFA, VENTOLIN HFA) 90 mcg/actuation inhaler q 6 HR. No current facility-administered medications for this visit. Social History Tobacco Use Smoking status: Never Smokeless tobacco: Never Vaping Use Vaping status: Never Used Substance Use Topics Alcohol use: Never Review of Systems Constitutional: Positive for chills and weight loss. HENT: Positive for congestion and sinus pain. Negative for ear pain and sore throat. Eyes: Negative for discharge and redness. Respiratory: Positive for cough and sputum production. Negative for stridor. Cardiovascular: Negative for chest pain. Gastrointestinal: Positive for nausea. Negative for diarrhea and vomiting. Musculoskeletal: Positive for myalgias. Skin: Negative for rash. BP 127/83 Pulse 100 Temp 98 Resp 18 Wt 140 lb (63.5kg) SpO2 100% LMP 08/08/2024 Physical Exam Vitals and nursing note reviewed. Constitutional: General: She is not in acute distress. Appearance: She is not ill-appearing or toxic-appearing. HENT: Head: Normocephalic and atraumatic. Right Ear: Tympanic membrane, ear canal and external ear normal. There is no impacted cerumen. Left Ear: Tympanic membrane, ear canal and external ear normal. There is no impacted cerumen. Nose: Congestion present. Mouth/Throat: Mouth: Mucous membranes are moist. Comments: Airway patent without stridor, trismus or muffled voice. Patient tolerating oral secretions. Voice is slightly raspy. Tonsils 1+. There is moderate posterior pharyngeal erythema with cobblestoning without edema or exudates. Uvula midline. Eyes: Conjunctiva/sclera: Conjunctivae normal. Cardiovascular: Rate and Rhythm: Regular rhythm. Tachycardia present. Pulmonary: Effort: Pulmonary effort is normal. No respiratory distress. Breath sounds: No stridor. No wheezing, rhonchi or rales. Musculoskeletal: Cervical back: Neck supple. Skin: General: Skin is warm and dry. Findings: No rash. Neurological: Mental Status: She is alert. Comments: Awake and alert. Motor gross intact. Steady gait. This is a 29-year-old female who presents with persistent upper and lower respiratory-like symptoms. At the time of my exam, patient was afebrile, well-appearing, well-hydrated, not hypoxic, non-toxic and in no acute distress and appropriate for outpatient treatment and management. I am concerned that she has a bacterial sinobronchial infection therefore I am going to start her on Augmentin. She like to start the prednisone taper as she does not want her asthma to flareup. I will start Bromfed as well. Discussed signs and symptoms, progression, and treatment. Patient education provided and discussed along with printed information regarding treatment and follow-up. Patient advised to follow-up with patient's PCP in 3-5 days if no improvement in symptoms. Discussed signs/symptoms and red flags to monitor for and should symptoms worsen, advised patient to go to nearest ER for evaluation. Patient agreeable to plan and verbalized understanding. Pt discharged home in stable condition. (J32.9, J40) Sinobronchitis (primary encounter diagnosis) Plan: amoxicillin-clavulanate potassium (AUGMENTIN) 875-125 mg per tablet, predniSONE (DELTASO (more content not included)... [facility] 08-16-2024 History of Presen t illness Narrative Estrella GONGORA is a 29 year old female who presents with Cough (Body aches, neck pain, nausea, ear pain, green phlegm /X 2 weeks) This is a 29-year-old female who presents with 2 weeks of nasal congestion and drainage, sinus pain and pressure, chest congestion, cough, body aches, fatigue. Taking vtck-fxc-qynzbtk cough medication without much relief. She has felt like she is using her albuterol inhaler more frequently. Denies any dizziness, ear pain, stridor, drooling, chest pain, shortness of breath, vomiting or diarrhea, rash. The history is provided by the patient. Cough Associated symptoms include chills, weight loss and myalgias. Pertinent negatives include no chest pain, no ear pain, no sore throat and no eye redness. PAST MEDICAL HISTORY Diagnosis Date Asthma Current Outpatient Medications Medication Sig Dispense Refill cetirizine (ZYRTEC) 10 mg tablet Take by mouth. SYMBICORT 160-4.5 mcg/actuation inhaler montelukast (SINGULAIR) 10 mg tablet amoxicillin-clavulanate potassium (AUGMENTIN) 875-125 mg per tablet Take 1 tablet by mouth every 12 hours for 7 days. 14 tablet 0 predniSONE (DELTASONE) 10 mg tablet Take 1 tablet by mouth once daily. TAKE 40 MG (4tabs) FOR TWO DAYS, THEN 20 MG (2tabs) FOR TWO DAYS, THEN 10 MG (1tab) FOR TWO DAYS 14 tablet 0 Cpyyfiqkuzyplnq-Pjyxnlley-BF (BROMFED DM) 2-30-10 mg/5 mL syrup Take 10 mL by mouth every 4 hours as needed (COUGH/CONGESTION) for up to 5 days. 300 mL 0 albuterol (PROVENTIL) 2.5 mg /3 mL (0.083 %) nebulizer solution albuterol HFA (PROVENTIL HFA, VENTOLIN HFA) 90 mcg/actuation inhaler q 6 HR. No current facility-administered medications for this visit. Social History Tobacco Use Smoking status: Never Smokeless tobacco: Never Vaping Use Vaping status: Never Used Substance Use Topics Alcohol use: Never Review of Systems Constitutional: Positive for chills and weight loss. HENT: Positive for congestion and sinus pain. Negative for ear pain and sore throat. Eyes: Negative for discharge and redness. Respiratory: Positive for cough and sputum production. Negative for stridor. Cardiovascular: Negative for chest pain. Gastrointestinal: Positive for nausea. Negative for diarrhea and vomiting. Musculoskeletal: Positive for myalgias. Skin: Negative for rash. BP 127/83 Pulse 100 Temp 98 Resp 18 Wt 140 lb (63.5kg) SpO2 100% LMP 08/08/2024 Physical Exam Vitals and nursing note reviewed. Constitutional: General: She is not in acute distress. Appearance: She is not ill-appearing or toxic-appearing. HENT: Head: Normocephalic and atraumatic. Right Ear: Tympanic membrane, ear canal and external ear normal. There is no impacted cerumen. Left Ear: Tympanic membrane, ear canal and external ear normal. There is no impacted cerumen. Nose: Congestion present. Mouth/Throat: Mouth: Mucous membranes are moist. Comments: Airway patent without stridor, trismus or muffled voice. Patient tolerating oral secretions. Voice is slightly raspy. Tonsils 1+. There is moderate posterior pharyngeal erythema with cobblestoning without edema or exudates. Uvula midline. Eyes: Conjunctiva/sclera: Conjunctivae normal. Cardiovascular: Rate and Rhythm: Regular rhythm. Tachycardia present. Pulmonary: Effort: Pulmonary effort is normal. No respiratory distress. Breath sounds: No stridor. No wheezing, rhonchi or rales. Musculoskeletal: Cervical back: Neck supple. Skin: General: Skin is warm and dry. Findings: No rash. Neurological: Mental Status: She is alert. Comments: Awake and alert. Motor gross intact. Steady gait. This is a 29-year-old female who presents with persistent upper and lower respiratory-like symptoms. At the time of my exam, patient was afebrile, well-appearing, well-hydrated, not hypoxic, non-toxic and in no acute distress and appropriate for outpatient treatment and management. I am concerned that she has a bacterial sinobronchial infection therefore I am going to start her on Augmentin. She like to start the prednisone taper as she does not want her asthma to flareup. I will start Bromfed as well. Discussed signs and symptoms, progression, and treatment. Patient education provided and discussed along with printed information regarding treatment and follow-up. Patient advised to follow-up with patient's PCP in 3-5 days if no improvement in symptoms. Discussed signs/symptoms and red flags to monitor for and should symptoms worsen, advised patient to go to nearest ER for evaluation. Patient agreeable to plan and verbalized understanding. Pt discharged home in stable condition. (J32.9, J40) Sinobronchitis (primary encounter diagnosis) Plan: amoxicillin-clavulanate potassium (AUGMENTIN) 875-125 mg per tablet, predniSONE (DELTASONE) 10 mg tablet, Lvsyfawlobyxswb-Ivfrougyx-EA (BROMFED DM) 2-30-10 mg/5 mL syrup 1) Augmentin twice daily for 7 days 2) saline nasal rinses 3) increase fluids 4) prednisone taper as instructed 5) Bromfed 10 mL every 6 hours for cough and congestion 6) if not improving in 5-7 days you should be reevaluated by primary provider. If develops persistent fevers past 5 days, chest pain, difficulty breathing, severe headache, neck pain/stiffness go to ER Bridget Woodard PA-C This document has been created with the use of voice recognition technology. Every effort was taken to correct for errors however it may contain inaccuracies, misspellings, syntax errors, or word sense that escaped review. Please inquire further with the author for clarification if needed. documented in this encounter [facility] 08-16-2024 Instructions Bridget Woodard PA-C - 08/16/2024 6:40 PM EDT 1) Augmentin twice daily for 7 days 2) saline nasal rinses 3) increase fluids 4) prednisone taper as instructed 5) Bromfed 10 mL every 6 hours for cough and congestion 6) if not improving in 5-7 days you should be reevaluated by primary provider. If develops persistent fevers past 5 days, chest pain, difficulty breathing, severe headache, neck pain/stiffness go to ER documented in this encounter [facility] 07-09-2024 Note . MICRO - Microbiology PROCEDURE: Urine Culture [*1] SOURCE: Urine, Clean Catch BODY SITE: COLLECTED DATE/TIME: 07/06/2024 12:24 EDT RECEIVED DATE/TIME: 07/07/2024 07:15 EDT START DATE/TIME: 07/07/2024 07:15 EDT FREE TEXT SOURCE: FINAL REPORTS Final Report [] Verified Date/Time/Personnel: 07/09/2024 07:14 EDT 10,000 - 50,000 cfu/ml Escherichia coli PRELIMINARY REPORTS Preliminary Report [] Verified Date/Time/Personnel: 07/08/2024 11:12 EDT 10,000 - 50,000 cfu/ml Escherichia coli GOLDEN to follow SUSCEPTIBILITY RESULTS Escherichia coli Antibiotic GOLDEN Dilut GOLDEN Inter Ampicillin <=8 Susceptible Ampicillin/ <=4/2 Susceptible Sulbactam Aztreonam <=4 Susceptible Cefazolin <=2 Susceptible Ceftazidime/ <=4 Susceptible Avibactam Ceftolozane/ <=2 Susceptible Tazobactam Ciprofloxacin <=0.25 Susceptible Ertapenem <=0.5 Susceptible Gentamicin <=2 Susceptible ID Panel Not Not Applicable Applicable Imipenem <=1 Susceptible Levofloxacin <=0.5 Susceptible Meropenem <=1 Susceptible Minocycline <=4 Susceptible Nitrofurantoin <=32 Susceptible Trimethoprim/ <=0.5/9.5 Susceptible Sulfa Performing Locations *1: This test was performed at: [facility], [address] [place] [address], [id number] , [facility] 06-17-2022 Miscellaneous Notes Pt verified by full name and . Advised of results. Pt replied understanding. Mirna Chapin LPN ----- Message from Tab Hong MD sent at 06/17/2022 8:11 AM EDT ----- Please notify patient of results documented in this encounter [facility] 06-16-2022 History of Presen t illness Narrative This is a 27-year-old female who complains of sore throat runny nose bilateral ear pain cough sneezing. She states her and child have had the same thing. She has not done a COVID test. Her was negative on testing no fever no vomiting Past medical history family and social history noted reviewed review of systems history present illness Physical exam blood pressure 110/71 pulse 89 respirations 18 temperature afebrile pulse ox 98% TMs have cerumen bilaterally and that I cannot see the eardrum upon irrigation was partially removed and the eardrums are normal without redness or fluid. Oropharynx is benign neck is supple without lymphadenopathy lungs clear to auscultation no wheezes rales rales or rhonchi COVID testing was done under full PPE Impression plan acute viral upper restaurant infection symptomatic care COVID test pending #2 bilateral cerumen impaction partially removed suggest hydrogen peroxide to dissolve the rest follow-up if not improving documented in this encounter [facility] Evaluation note Diagnosis Congestion of both ears- Primary URI, acute Acute upper respiratory infections of unspecified site [facility] Sinobronchitis- Primary Unspecified sinusitis (chronic) [facility] Diagnosis Moderate persistent asthma with (acute) exacerbation- Primary URI, acute Acute upper respiratory infections of unspecified site Eczema, unspecified type documented in this encounter [facility] Summary Purpose Family History No Family History Records FoundNo Family History Records FoundNo Family History Records FoundNo Family History Records FoundNo Family History Records Found Advance Directives No Advanced Directives Records FoundNo Advanced Directives Records FoundNo Advanced Directives Records FoundNo Advanced Directives Records FoundNo Advanced Directives Records Found Health Concerns Infection Onset Date Last Indicated Resolved Time COVID-19 Rule-Out 06/16/2022 06/16/2022 Infection Onset Date Last Indicated Resolved Time COVID-19 Rule-Out 06/16/2022 06/16/2022 06/17/2022 12:50 AM EDT Additional Source Comments INFORMATION SOURCE (unrecogn ized section and content) DATE CREATED AUTHOR 04/08/2019 [facility] [place] DATE CREATED AUTHOR AUTHOR'S ORGANIZ ATION 06/02/2024 [facility] ([place]) DATE CREATED AUTHOR AUTHOR'S ORGANIZ ATION 08/29/2024 [facility] DATE CREATED AUTHOR AUTHOR'S ORGANIZ ATION 02/09/2025 [facility] DATE CREATED AUTHOR AUTHOR'S ORGANIZ ATION 08/01/2025 [facility] Source Comments (unrecognize d section and content) In the event this informatio n is protected by the Federal Confidentiality of Alcohol and Drug Abuse Patient Records regulations: The Federal rules restrict any use of the information to criminally investigate or prosecute any alcohol or drug abuse patient.[facility] the event this information is protected by the Federal Confidentiality of Alcohol and Drug Abuse Patient Records regulations: The Federal rules restrict any use of the information to criminally investigate or prosecute any alcohol or drug abuse patient.[facility] the event this information is protected by the Federal Confidentiality of Alcohol and Drug Abuse Patient Records regulations: The Federal rules restrict any use of the information to criminally investigate or prosecute any alcohol or drug abuse patient.[facility] the event this information is protected by the Federal Confidentiality of Alcohol and Drug Abuse Patient Records regulations: The Federal rules restrict any use of the information to criminally investigate or prosecute any alcohol or drug abuse patient.[facility] Reason for Visit (unrecogniz ed section and content) Reason Comments Sore Throat Started yesterday. H as an echo in her head when she talks. Today mostly her throat and ears. Nose is not running like it was yesterday. Reason Comments Results Reason Comments Cough Body aches, neck vaishnavi n, nausea, ear pain, green phlegm X 2 weeks Reason Comments Other Asthma attack - Ente red by patient Care Teams (unrecognized sec tion and content) Sheet Cutter Relationship Specialty Start Date End Date Stefani Iverson MD [address] [place] [address] PCP - General Internal Medicine 09/14/23 Sheet Cutter Relationship Specialty Start Date End Date Stefani Iverson MD [address] [place] [address] PCP - General Internal Medicine 09/14/23 FOR RECORDS PERTAINING TO PATIENTS WHO ARE OR HAVE BEEN ENROLLED IN A CHEMICAL DEPENDENCY/SUBSTANCEABUSE PROGRAM, SOME INFORMATION MAY BE OMITTED. This clinical summary was aggregated from multiple sources. Caution should be exercised in using it in the provision of clinical care. This summary normalizes information from multiple sources, and as a consequence, information in this document may materially change the coding, format and clinical context of patient data. In addition, data may be omitted in some cases. CLINICAL DECISIONS SHOULD BE BASED ON THE PRIMARY CLINICAL RECORDS. [facility] [employer] [facility]. provides no warranty or guarantee of the accuracy or completeness of information in this document.
[2025-08-02 09:52] LABS: Cholesterol 189 mg/dL (<=200); Glucose 92 mg/dL (70-99); Low Density Lipoprotein Calc. 108 mg/dL; Triglycerides 92 mg/dL; Very Low Density Lipoprotein 18 mg/dL (5-40); cholesterol:hdl ratio screen 3.01
[2025-08-02 09:55] LABS: CORTISOL AM 15.50 ug/dL (6.02-18.40); Vitamin B12 864 pg/mL (180-914); Vitamin D,25 Hydroxy 23.1 ng/mL (30-100)
== END | disposition home or self-care (01) ==
LOC: LAB 08:21
PROVIDERS: Referring Provider Obstetrics & Gynecology; Visit Provider Obstetrics & Gynecology
DX: Z13.220 Encounter for screening for lipoid disorders (principal); R53.83 Other fatigue; R60.9 Edema, unspecified; Z13.1 Encounter for screening for diabetes mellitus; Z13.29 Encounter for screening for other suspected endocrine disorder
CPT/HCPCS: 36415; 80061; 82306; 82533; 82607; 82947; 84443

== ENCOUNTER → 2025-09-01 | Outpatient (CLI) | payer OTHER, SELFPAY | END | disposition home or self-care (01) | LOC: LABSPEC 10:26 | PROVIDERS: PCP Internal Medicine; Referring Provider Obstetrics & Gynecology; Visit Provider Obstetrics & Gynecology | DX: Z12.11 Encounter for screening for malignant neoplasm of colon (principal); R53.83 Other fatigue; R60.9 Edema, unspecified | CPT/HCPCS: 82274 ==